=== PATIENT | male | born 1955 | race Caucasian/White ===

== ENCOUNTER 2020-05-19 01:32 | Outpatient (CLI) | payer MEDICARE, SELFPAY ==
[2020-05-19 19:09] LABS: SARS-CoV-2 RNA PCR Negative
== END 2020-05-19 01:33 | disposition home or self-care (01) ==
LOC: ANHCOVIDDT 01:32
PROVIDERS: PCP Internal Medicine; Visit Provider Internal Medicine Gastroenterology
DX: Z01.812 Encounter for preprocedural laboratory examination (principal); Z11.59 Encounter for screening for other viral diseases
CPT/HCPCS: 87635; C9803; U0003

== ENCOUNTER 2020-05-23 00:26 | Day surgery (SDC) | payer MEDICARE, SELFPAY ==
[2020-05-16 14:40] VITALS: BMI 24.8
[2020-05-23 07:57] VITALS: BP 116/73; PULSE 60; RESP 16; TEMP 36.2; O2SAT 97
[2020-05-23] MEDS: LACTATED RINGERS 1,000 ML 150 ML IV CONT (08:02)
--- NOTE | 2020-05-23 08:51 | WPDANESEPPF ---
Anes - Initial Pre Proc Eval Procedure: Operation Date: 05/23/20 09:00 Proposed Procedures p Screening Colonoscopy - Vega Salas MD Date/Time: 05/23/20 08:51 Surgeon: Vega Salas MD Pre Op Diagnosis: neoplasm screening, hx colon polyps Patient Data Age: 65 Gender: M Height: 5 ft 9 in Weight: 76.5 kg Last Vital Signs Temp 36.2 C L 05/23/20 07:57 Pulse 60 05/23/20 07:57 Resp 16 05/23/20 07:57 BP 116/73 05/23/20 07:57 Pulse Ox 97 05/23/20 07:57 Allergies Allergy/AdvReac Type Severity Reaction Status Date / Time No Known Allergies Allergy Verified 05/23/20 07:56 Home Medications Medication Instructions Recorded Confirmed Type aspirin 325 mg PO DAILY 05/16/20 05/16/20 History levothyroxine 50 mcg PO DAILY 05/16/20 05/16/20 History lithium carbonate 300 mg PO BID 05/16/20 05/16/20 History risperidone 0.5 mg PO DAILY 05/16/20 05/16/20 History sertraline 150 mg PO DAILY 05/16/20 05/16/20 History Patient hx anesthesia problems: none Family hx anesthesia problems: none PMFSH Past Medical History Medical History Obesity Schizophrenia Smoker Surgical History Surgical History (Updated 05/23/20 @ 08:54 by Abrahan Quintanilla MD) H/O exploratory laparotomy Social History Social History Smoking packs per day: 0.75 Smoking cigarettes per day: 15.0 Years smoked: 30 Smoking pack-years: 22.50 Smoking status: Current every day smoker Tobacco type: cigarettes Alcohol intake: current Drinks per week: 0 Alcohol use details: 1 OR 2 BEERS A MONTH Substance use: current Substance use type: marijuana Other substance usage details: DAILY Last use: TODAY Living arrangements: with family Spiritual care concerns: No Anes - Eval Final PreProcedure Day of Procedure 05/23/20 08:51 Patient weight: overweight Heart: regular rate and rhythm Airway: Mallampati scale class II and other (upper denture) Neurological: alert and oriented Last oral intake: >/= 8 hours ASA classification: III Emergent: no Anesthetic plan: proceed Anesthesia type and monitoring: general GIVS and standard monitoring Informed Consent: The patient's anesthetic plan and its attendant risks and benefits were discussed with the patient/family/POA. Questions were solicited and answers provided to the satisfaction of the patient/family/POA.
--- NOTE | 2020-05-23 08:58 | P.CONGI_ITS ---
Assessment and Plan Assessment and plan (1) History of colon polyps: Code(s): Z86.010 - Personal history of colonic polyps Status: Acute Assessment and Plan: Patient has a history of colon polyps. Plan is for surveillance colonoscopy now and consider this at 5 year intervals in the future. (2) Schizophrenia: Code(s): F20.9 - Schizophrenia, unspecified Status: Acute GI Consult Note Consult date/time: 05/23/20 08:58 HPI: Thomas Nuñez Jr. is a 65 year old male Seen in evaluation at the request of Dr. Olvin Montgomery. Patient has a history of colon polyps approximately 10 years ago. Patient states his current weight appetite bowel movements are normal. He has had no bleeding. He denies abdominal pain. Family history is noncontributory. [facility] Past Medical History Medical History Obesity Schizophrenia Smoker Surgical History Surgical History (Updated 05/23/20 @ 08:54 by Abrahan Quintanilla MD) H/O exploratory laparotomy Social History Social History Smoking packs per day: 0.75 Smoking cigarettes per day: 15.0 Years smoked: 30 Smoking pack-years: 22.50 Smoking status: Current every day smoker Tobacco type: cigarettes Alcohol intake: current Drinks per week: 0 Alcohol use details: 1 OR 2 BEERS A MONTH Substance use: current Substance use type: marijuana Other substance usage details: DAILY Last use: TODAY Living arrangements: with family Spiritual care concerns: No Meds Home Medications and Allergies Home Medications Medication Instructions Recorded Confirmed Type aspirin 325 mg PO DAILY 05/16/20 05/16/20 History levothyroxine 50 mcg PO DAILY 05/16/20 05/16/20 History lithium carbonate 300 mg PO BID 05/16/20 05/16/20 History risperidone 0.5 mg PO DAILY 05/16/20 05/16/20 History sertraline 150 mg PO DAILY 05/16/20 05/16/20 History Allergies Allergy/AdvReac Type Severity Reaction Status Date / Time No Known Allergies Allergy Verified 05/23/20 07:56 Vital Signs Vital Signs - 24 hr 05/23/20 07:57 Temperature 97.2 F L Pulse Rate 60 Respiratory Rate 16 Blood Pressure 116/73 Pulse Oximetry 97 Exam Narrative: Exam Narrative: Physical exam reveals patient to be alert. Vital signs stable. HEENT exam unremarkable. Patient is anicteric. Lungs are clear to auscultation and percussion. Heart is without murmur or extra sounds. Abdominal exam bowel sounds are present soft nontender with no organomegaly. Digital external rectal exam is normal.
[2020-05-23 09:28] VITALS: BP 80/48; PULSE 56; RESP 30; O2SAT 93
[2020-05-23 09:38] VITALS: BP 86/50; PULSE 50; RESP 17; O2SAT 97
[2020-05-23 09:48] VITALS: BP 107/62; PULSE 54; RESP 21; O2SAT 96
== END 2020-05-23 10:07 | disposition home or self-care (01) ==
PROVIDERS: PCP Internal Medicine; Visit Provider Internal Medicine Gastroenterology
PROC: 0DJD8ZZ Inspection of Lower Intestinal Tract, Via Natural or Artificial Opening Endoscopic (ICD-10-PCS; CPT 45378; principal; 2020-05-23 09:00)
DX: Z12.11 Encounter for screening for malignant neoplasm of colon (principal); K64.8 Other hemorrhoids; Z86.010 Personal history of colon polyps; F20.9 Schizophrenia, unspecified; E66.9 Obesity, unspecified; F17.210 Nicotine dependence, cigarettes, uncomplicated; F12.90 Cannabis use, unspecified, uncomplicated
CPT/HCPCS: G0105; J2704; J7120

== ENCOUNTER 2025-03-05 18:06 | Emergency (ER) | payer MEDICARE, SELFPAY ==
--- OUTSIDE RECORDS SUMMARY | 2024-04-21 10:00 | XMS_ITS ---
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 Name Role Phone Carlton Pereyra Primary Care Provider REASON FOR VISIT 2 Month Psych F/U & Med Refill Social History Sex Assigned At : Social History Observation Description Sex Assigned At Male Encounters Encounter Location Date Provider Diagnosis [address] [address] 04/21/2024 Carlton Pereyra Plan Of Treatment Next Appt Details Provider Name:Carlton Cole , 03/15/2025 02:20:00 PM, [address] [place] [address], [place], [address], Progress Notes * Thomas CONROY JrDOB:[birth year] (70 yo M)Acc No.[id number]:04/21/2024 UNLOCKED PROGRESS NOTE Patient: Kristan MARY Thomas Montoya Provider: Ben Pereyra DNP, PMHNP-BC :1955 A ge:69 Y S ex:Male Date:04/21/2024 Address:[address], [place], [place]-[address] Subjective: * Chief Complaints: * 1 . 2 Month Psych F/U & Med Refill. * Medical History: Objective: * Vitals: Assessment: Plan: * Treatment: * * Electronic signature of Clementina Pereyra APRN, [id number] on 03/05/2025 at 03:57 PM CDT Sign off status: Pending * Provider: Ben Pereyra DNP, PMHNP-BC Date: 1 Generated for Ernesto simms/Jen/Yolanda on: 0 03/05/2025 03:57 PM CDT
--- OUTSIDE RECORDS SUMMARY | 2025-01-04 09:00 | XMS_ITS ---
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 Role Phone Carlton Pereyra Primary Care Provider REASON FOR VISIT last seen 06/30/24 6 month FU Social History Sex Assigned At : Social History Observation Description Sex Assigned At Male Encounters Encounter Location Date Provider Diagnosis [address] [address] 01/04/2025 Carlton Pereyra Plan Of Treatment Next Appt Details Provider Name:Carlton Cole , 03/15/2025 02:20:00 PM, [address] [place] [address], [place], [address], Progress Notes * Thomas CONROY JrDOB:[birth year] (70 yo M)Acc No.[id number]:01/04/2025 UNLOCKED PROGRESS NOTE Patient: Kristan MARY Thomas Montoya Provider: Ben Pereyra DNP, PMHNP-BC :1955 A ge:69 Y S ex:Male Date:01/04/2025 Address:[address], [place], [place] Subjective: * Chief Complaints: * 1 . last seen 06/30/24 6 month FU. * Medical History: Objective: * Vitals: Assessment: Plan: * Treatment: * * Electronic signature of Clementina Pereyra APRN, [id number] on 03/05/2025 at 03:57 PM CDT Sign off status: Pending * Provider: Ben Pereyra DNP, PMHNP- Date: 0 01/04/2025 Generated for Ernesto simms/Jen/Yolanda on: 0 03/05/2025 03:57 PM CDT
--- NOTE | ~2025-03-05 | CT_ITS ---
EXAMINATION: CT abdomen pelvis w con, 03/05/2025 20:30 CDT HISTORY: r/o BOWEL OBSTRUCTION COMPARISON: No comparisons available. TECHNIQUE: CT scan of the abdomen and pelvis was performed with contrast. Isovue 300, 92cc injected IV. One or more of the following dose reduction techniques were used: automated exposure control, adjustment of the mA and/or kV according to patient size, use of iterative reconstruction technique. Unless otherwise stated, incidental findings do not require dedicated follow up imaging FINDINGS: CT abdomen: LUNG BASES: The lung bases are clear. The visualized portions of the heart and pericardium are unremarkable. LIVER: Portal vein patent. No intrahepatic biliary duct dilatation. SPLEEN: Unremarkable, no splenomegaly. KIDNEYS: Right Kidney: Unremarkable. No calculi. No hydronephrosis. Left Kidney: Unremarkable. No calculi. No hydronephrosis ADRENAL GLANDS: Unremarkable. PANCREAS: Unremarkable. GALLBLADDER/BILIARY: Gallbladder contracted. STOMACH AND ESOPHAGUS: Visualized stomach and esophagus within normal limits. BOWEL/MESENTERY: There are inflammatory changes noted in the perianal soft tissues with left-sided catheter noted. Moderate fecal content throughout the large bowel, no colitis or diverticulitis. Appendix normal. Mesentery normal. No dilated small bowel loops. There are some thickened loops of small bowel noted in the right hemiabdomen although there is no significant mucosal hyperemia, there is no gross perforation or abscess. ADENOPATHY/RETROPERITONEUM: No lymphadenopathy. AORTA/VASCULATURE: Normal caliber aorta. FREE FLUID OR FREE AIR: Trace free fluid.. CT pelvis: SOLID ORGANS/REPRODUCTIVE: Unremarkable. BLADDER: The bladder wall is thickened with perivesicular stranding and severe mucosal hyperemia. OSSEOUS STRUCTURES: No acute osseous abnormality.No suspicious lesions. OVERLYING SOFT TISSUES: Postsurgical changes in the abdominal wall with left- sided ostomy. Small bilateral fat-containing inguinal hernia. Grayson catheter in the bladder. IMPRESSION: 1. Severe cystitis. 2. Thickening of the small bowel detailed above which may relate to underlying enteritis. Follow-up is recommended to assess. Reviewed, dictated and finalized at location A.
--- OUTSIDE RECORDS SUMMARY | 2025-03-05 13:00 | XMS_ITS | Encounter Summary ---
Author Organization [facility] Address [address] [facility] [place] [address] Phone Care Team Providers Care Junior Bookkeeper Name Role Phone Olvin Montgomery MD Primary Care Provider [phone] Reason for Visit * Auth/Cert (Routine) Specialty Diagnoses / Procedures Referred By Contnicholas t Referred To Contact Referral ID Status Reason Start Date Expiration Date Visits Re quested Visits Authorized [id number] 1 1 Encounter Details Date Type Department Care Team (Late Contact Info) Description 03/05/2025 1:00 PM CDT Home Care Visit [facility] [address] [place] [address] Daphne Ken RN [place] - PRN VISIT Social History Tobacco Use Types Packs/Day Years Used Date Smoking Tobacco: Never Assessed Sex and Gender Information Value Date Recorded Sex Assigned at Not on file Legal Sex Male 3:29 PM CDT Gender Identity Not on file Sexual Orientation Not on file documented as of this encounter Last Filed Vital Signs Vital Sign Reading Time Taken Comments Blood Pressure 110/62 03/05/2025 12:30 PM CDT Pulse 81 03/05/2025 12:30 PM CDT Temperature 36.3 C (97.3 F) 03/05/2025 12:30 PM CDT Respiratory Rate - - Oxygen Saturation 100% 03/05/2025 12:30 PM CDT Inhaled Oxygen Concentration - - Weight - - Height - - Body Mass Index - - documented in this encounter Plan of Treatment Upcoming Encounters Date Type Department Care Team (Late Contact Info) Description 03/06/2025 12:00 PM CDT Home Care Visit [facility] [address] [place] [address] Ana Chaudhary PTA [place] 03/07/2025 11:00 AM CDT Home Care Visit [facility] [address] Joselin Duong PT [place] 03/08/2025 2:00 AM CDT Home Care Visit [facility] [address] Ellie Mayer RN [place] 03/15/2025 1:00 AM CDT Home Care Visit [facility] [address] Ellie Mayer RN [place] 03/22/2025 1:00 AM CDT Home Care Visit [facility] [address] Ellie Mayer RN [place] 03/29/2025 1:00 AM CDT Home Care Visit [facility] [address] Ellie Mayer RN [place] 04/05/2025 1:00 AM CDT Home Care Visit [facility] [address] Ellie Mayer RN [place] 04/12/2025 1:00 AM CDT Appointment [address] [address] Ellie Mayer RN [place] documented as of this encounter Visit Diagnoses Not on filedocumented in this encounter Home Health Visit - Care Plan Visit Details Visit Type -SN - PRN Visit Discipline -Snf Problems Problem Description Start Date Status Goals Interve ntions CANCER Disciplines: Snf Cancer 02/16/2025 Active 1 goal linked to scheduled/documente d intervention 1 goal intervention scheduled/documente d in this visit UTI PREVENTION Disciplines: Snf 02/16/2025 Active 1 goal linked to scheduled/documente d intervention 1 goal intervention scheduled/documente d in this visit Goals Goal Associated Problem Outcome Goal Met? Visit Notes Cancer Description: Patient will demonstrate effective level cancer related symptom and pain control. Target date: within 4 weeks CANCER No UTI Prevention Description: Patient will verbalize understanding of signs and symptoms to report and methods to prevent urinary tract infection. UTI PREVENTION No Interventions Intervention Associated Problem/Goal Status Variance Visit Notes Cancer (O) Description: Assess for cancer related symptoms and pain. Provide education on techniques to mitigate/control cancer symptoms. Problem:CANCER Goal:Cancer Scheduled UTI Symptoms Non-Catheter (O) Description: Evaluate for signs and symptoms of Urinary tract infection. Provide education regarding UTI prevention and signs and symptoms to report. Problem:UTI PREVENTION Goal:UTI Prevention Scheduled documented in this encounter Care Teams Junior Bookkeeper Relationship Specialty Start Date End Date Olvin Montgomery MD [address] [place] [address] PCP - General Internal Medicine 02/08/25 documented as of this encounter
[2025-03-05 18:09] VITALS: BP 119/64; PULSE 79; RESP 19; TEMP 36.4; O2SAT 100
[2025-03-05 20:07] LABS: Hematocrit 34.1 % (42.0-52.0); Hemoglobin 10.1 g/dL (14.0-18.0); Immature Granulocyte Percent A 2.2 % (0-0.5); Lymphocytes Absolute Auto 0.50 K/mm3 (0.9-3.2); Mean Corpuscular HGB Conc 29.6 g/dl (32-36); Mean Corpuscular Hemoglobin 30.1 pg (26-34); Mean Corpuscular Volume 101.5 fl (80-100); Nucleated Red Blood Cells Absolute Auto 0.000 K/mm3 (0.0-0.012); Nucleated Red Blood Cells Perc 0.0 % (0.0-0.2); Platelet Count Result 282 k/mm3 (150-375); Red Blood Count 3.36 M/mm3 (4.6-6.20); White Blood Count 6.0 K/mm3 (4.5-10.0)
[2025-03-05 20:12] LABS: Alanine Aminotransferase 11 U/L (6-50); Albumin Level 3.9 g/dL (3.5-5.1); Alkaline Phosphatase 67 U/L (38-126); Anion Gap 6 mmol/L (4-12); Aspartate Amino Transferase 26 U/L (17-59); Bilirubin,Total 0.4 mg/dL (0.2-1.3); Blood Urea Nitrogen 27 mg/dL (9-20); Calcium 9.0 mg/dL (8.4-10.2); Carbon Dioxide 25 mmol/L (22-30); Chloride 108 mmol/L (98-107); Estimated CRCL calculation 34 ml/min; Estimated Glomerular Filt Rate 38; Glucose 87 mg/dL (65-110); Lipase 181 U/L (23-300); Magnesium 2.1 mg/dL (1.6-2.3); Potassium 4.2 mmol/L (3.4-5.0); Sodium 139 mmol/L (137-145); Total Protein 7.7 g/dL (6.3-8.2)
[2025-03-05 20:16] VITALS: BP 124/82; PULSE 67; RESP 18; O2SAT 100
[2025-03-05 20:16] LABS: Hypochromasia 1+
[2025-03-05 20:17] LABS: Schistocytes None Seen
[2025-03-05 20:18] LABS: Add Urine Microscopic? YES; Appearance Urine Cloudy (Clear); Glucose Urine UA Negative (Negative); Leukocyte Esterase Ur 2+ LEU/UL (Negative); Nitrate Urine Positive (Negative); Non Pathogenic Casts 0-2; Specific Grav Ur 1.005 (1.001-1.035)
--- OUTSIDE RECORDS SUMMARY | 2025-03-05 20:22 | XMS_ITS | Clinical Summary ---
Author Organization [address] Address [address] [place] [phone] Care Team Providers Care Whale Trainer Name Role Phone Olvin Montgomery MD Primary Care Provider + [phone] Ten Canales MD Unavailable [phone] Hubert Robledo MD PhD Unavailable + [phone] Bin Ryder MD Unavailable [phone] Allergies Active Allergy Reactions Criticality Noted Date Comments Dye Blisters High 09/22/2024 HAIR DYE Paroxetine Other (See comments) Low 08/11/2024 Paxil - don't remember reaction Medications sertraline (ZOLOFT) 100 mg tabletIndications: Generalized Anxiety Disorder,depressio n Take 2 tablets (200 mg total) by mouth daily Active levothyroxine (SYNTHROID) 50 mcg tabletIndications: hypothyroidism Take 1 tablet (50 mcg total) by mouth nurse case manager before breakfast Active acetaminophen 500 mg capsuleIndications :Pain Take 2 capsules (1,000 mg total) by mouth every 6 (six) hours 30 tablet 07/28/19 25 Active Additional Information Patient taking differently:1,000 mg oralAs needed, Indications: Pain, Informant: Family Member, Reported on 03/01/2025 Ensure Plus High Protein 0.08 gram-1.5 kcal/mL liquidIndications: supplement Take by mouth daily 10/14/19 25 Active folic acid (FOLVITE) 1 mg tablet Take 1 tablet (1 mg total) by mouth daily Active gabapentin (NEURONTIN) 300 mg capsuleIndications :Neuropathic Pain Take 1 capsule (300 mg total) by mouth 3 (three) times a day Active mirtazapine (REMERON) 15 mg tablet Take 1 tablet (15 mg total) by mouth nightly 30 tablet 01/05/20 25 Active methocarbamoL (ROBAXIN) 750 mg tablet Take 2 tablets (1,500 mg total) by mouth 3 (three) times a day as needed for muscle spasms 15 tablet 01/05/20 25 Active tamsulosin (FLOMAX) 0.4 mg extended release capsule Take 1 capsule (0.4 mg total) by mouth daily with dinner 30 capsule 01/05/20 25 Active Additional Information Patient taking differently:0.4 mg oral Daily with dinner,Indications: benign prostatic hyperplasia with lower urinary tract sx, Informant: Family Member, Reported on 02/16/2025 traZODone (DESYREL) 50 mg tablet Take 1 tablet (50 mg total) by mouth nightly 30 tablet 01/05/20 25 Active Additional Information Patient taking differently:50 mg oral Nightly,Indications: sleep, Informant: Family Member, Reported on 02/16/[address] (PROTONIX) 40 mg EC tabletIndications: GI Bleed Take 1 tablet (40 mg total) by mouth 2 (two) times a day 60 tablet 2 01/05/20 25 025 Active ondansetron ODT (ZOFRAN-ODT) 4 mg disintegrating tablet Take 1 tablet (4 mg total) by mouth as needed for nausea 01/05/20 25 Active finasteride (PROSCAR) 5 mg tabletIndications: benign prostatic hyperplasia with lower urinary tract sx Take 1 tablet (5 mg total) by mouth nightly 01/08/20 25 Active megestroL 40 mg/mL suspension Not currently taking 01/08/20 25 Active sodium, potassium & mag sulfates (Suprep Bowel Prep Kit) 17.5-3.13-1.6 gram recon solnIndications:Maykel wel Evacuation Drink first half of prep at 6:00 pm the night before procedure. Drink second half of prep 4 hours prior to leaving home for procedure. 354 mL 02/15/20 25 Active Additional Information Patient taking differently: Drink first half of prep at 6:00 pm the night before procedure. Drink second half of prep 4 hours prior to leaving home for procedure. Future med, Indications: Bowel Evacuation, Informant: Family Member, Reported on 02/16/2025 oxyCODONE (OXY-IR) 5 mg capsuleIndications :Pain Take 1 capsule (5 mg total) by mouth every 4 (four) hours as needed for moderate pain (pain scale 5-7) Active zinc sulfate (ZINCATE) 50 mg zinc (220 mg) capsule Take 1 capsule (220 mg total) by mouth daily 30 capsule 11 08/18/19 25 025 Discontin ued(Thera py completed ) multivitamin with minerals tablet Take 1 tablet by mouth daily 025 Discontin ued(Thera py completed ) polyethylene glycol (MIRALAX) 17 gram packetIndications: constipation Take 1 packet (17 g total) by mouth daily 025 Discontin ued(Thera py completed ) prochlorperazine (COMPAZINE) 10 mg tablet Take 1 tablet (10 mg total) by mouth every 6 (six) hours as needed for nausea or vomiting Discontin ued(Thera py completed ) ascorbic acid (VITAMIN C) 1,000 mg tablet Take 1 tablet (1,000 mg total) by mouth daily 30 tablet 01/05/20 25 025 Discontin ued(Thera py completed ) droNABinol (MARINOL) 2.5 mg capsule Take 1 capsule (2.5 mg total) by mouth 2 (two) times a day before breakfast and lunch for 7 days 14 capsule 01/05/20 25 025 Discontin ued(Thera py completed ) lidocaine (LIDODERM) 5 % Place 2 patches on the skin daily for 12 hours Remove & discard patch within 12 hours or as directed by . 10 patch 01/05/20 25 025 Discontin ued(Thera py completed ) senna-docusate (PERICOLACE) 8.6-50 mg Take 1 tablet by mouth 2 (two) times a day as needed for constipation 30 tablet 01/05/20 25 025 Discontin ued(Thera py completed ) omeprazole (PriLOSEC) 40 mg capsule 01/05/20 25 025 Discontin ued(Alter carlos therapy) Active Problems Problem Noted Date Diagnosed Date Esophagitis 12/29/2024 Duodenal erosion 12/29/2024 Coffee ground emesis 12/28/2024 JAIR (acute kidney injury) 12/27/2024 Anal carcinoma 10/03/2024 Pain 08/29/2024 Delirium 08/16/2024 Assessment & Plan (08/17/2024 9:21 AM GUEST SERVICES DIRECTOR): 08/16 expressed having audible and visual hallucination, thought people were talking about killing animals in his room, a head CT was performed which showed no intra cranial process- ordered Trazodone for tonight 08/17 mental status improved Discharge planning issues 08/15/2024 Assessment & Plan (08/18/2024 9:47 AM GUEST SERVICES DIRECTOR): 08/15 CRS to see patient 08/16 Urology consulted for urinary retention 08/17 Patient is medically stable for discharge, SW/CM updated. Discharge pending facility acceptance 08/18: Discharged [x] Treatment Plan note completed UTI (urinary tract infection) 08/15/2024 Assessment & Plan (08/15/2024 1:21 PM GUEST SERVICES DIRECTOR): Ceftriaxone 08/13-08/15, did not reflux to culture Colostomy present on admission 08/15/2024 Assessment & Plan (08/17/2024 12:57 PM GUEST SERVICES DIRECTOR): OR 07/25 CRS ([place]) I and D bilateral perirectal abscesses & Laparoscopic assisted colostomy. 08/15 + gas in bag 08/16 + ostomy output Urinary incontinence 08/15/2024 Assessment & Plan (08/17/2024 9:10 AM GUEST SERVICES DIRECTOR): 08/15 patient states this has had this since April 2024, will obtain PVR bladder scans for 24hrs, if > [address] Greco, 350 mL reported, Greco placed 08/[address] findings concerning for invasion of the anal mass into the Prostate consulted Urology in the setting of UOP 5L/24h,Greco remains in place 08/[address], will discharge with Greco and follow up with Urology outpatient Fall, initial encounter 08/13/2024 Multiple Left sided rib fractures, 8th-12th 07/30 Assessment & Plan (08/18/2024 9:47 AM GUEST SERVICES DIRECTOR): # Left rib fx 8-12 CXR, Chest CT demonstrate acute fractures of ribs 8th-12th on the Left side. Patient's is pulling 2L on IS. - Admit to Floor based on [facility] Rib score - Aggressive pulmonary hygiene: elevate HOB, ISx10/hr while awake, duonebs, OOB as able - O2 therapy for goal O2 saturations > 90-94%. - Daily CXR - MMPR: APAP, gabapentin, anti-spasmodic, lidocaine patches to most painful area - Pain consult placed on floor, 08/13 - PT consultation - 08/14: Pain well controlled, pulling in <500 ml volume in IS - 08/15: Increased Methocarbamol from 1000 mg TID to 1500 mg TID, now IS 1L -08/17 Pain remains well controlled, changed Oxycodone frequency to QID PRN - F/U with ACCS with repeat CXR Moderate protein-calorie malnutrition 07/27/2024 Assessment & Plan (08/17/2024 12:54 PM GUEST SERVICES DIRECTOR): Body mass index is 20.04 kg/m . 08/15 Nutrition consult, Albumin 2.9 08/16 nutritional supplements ordered 08/17 started Marinol to improve appetite Anal squamous cell carcinoma 07/25/2024 Cancer Staging:Clinical stage from 08/15/2024:Stage IIIC(cT4, cN1a, cM0) - Signed by Bin Ryder MD on 08/15/2024 Assessment & Plan (08/17/2024 12:56 PM GUEST SERVICES DIRECTOR): S/P I&D / CRS Dr. Canales ---Perianal wound care: Cleanse perineum with wound cleanser, pat dry. Apply triple paste cream to perineum, around the mushroom catheters. Cover with dry gauze and ABD pad, use mesh panties to hold dressings in place (rather than tape). Perform dressing changed TID and PRN saturation. Patient has follow up appointments scheduled with Oncology to start Chemotherapy 08/29, Radiation therapy TBD. The patient's Brother in law is willing to take the patient to his treatments from the facility. Rectal abscess 07/21/2024 Assessment & Plan (08/18/2024 9:46 AM GUEST SERVICES DIRECTOR): #Anal SCC with perirectal abscesses s/p recent I&Ds (CRS, Ally) and diverting colostomy. - Patient with mild oozing 08/14 - No pain no signs of infection - Perianal wound care: Cleanse perineum with wound cleanser, pat dry. Apply triple paste cream to perineum, around the mushroom catheters. Cover with dry gauze and ABD pad, use mesh panties to hold dressings in place (rather than tape). Perform dressing changed TID and PRN saturation. - 08/15: CRS consulted Follow up with Dr. Argueta outpatient for drain removal Anal cancer 07/19/2024 [id number] 07/19/2024 Bipolar 1 disorder 04/12/2024 Essential (primary) hypertension 04/12/2024 Open wound of left buttock 04/12/2024 Syncope 04/12/2024 Tobacco dependence syndrome 04/12/2024 Hyperlipidemia 03/25/2024 Umbilical hernia 02/20/2024 Overactive bladder 02/15/2024 Hypothyroidism 01/18/2024 Chlamydial infection 01/30/2023 Lower urinary tract symptoms 01/30/2023 Sexually transmitted infection 01/30/2023 Benign prostatic hyperplasia with urinary obstru ction 12/11/2021 Encounters Date Type Department Care Team Description 03/01/20 12:50 PM CDT - 03/01/20 25 1:45 PM CDT Surgery [facility] Operating Room [address] [place] [phone] Ten Canales MD EXAM UNDER ANESTHESIA - RECTUM 03/01/20 12:49 PM CDT Anesthesia Event [facility] Operating Room [address] [place] [address] Rohan Oliveira MD Heuvelman, Katherine Marie, NP 03/01/20 25 10:30 AM CDT - 03/01/20 25 3:32 PM CDT Hospital Encounter [facility] Operating Room [address] [place] [address] Ten Canales MD Anal cancer (HCC) (Primary Dx); [id number] Discharge Disposition: Discharge to home or self care 02/29/[address] [facility] Surgery [address] [place] [address] Medical Office Building [address] [place] [phone] Mode Lucita, [facility] Surgery Confirmation 02/24/[address] [facility] Surgery [address] [place] [address] Lizzette Ibrahim, [facility] 02/15/20 1:00 PM CDT Office Visit [facility] Surgery [address] [place] [address] Office [facility] [address] [place] [phone] Ten Canales MD Colostomy present on admission (HCC) (Primary Dx); Anal cancer (HCC) 01/27/20 1:30 PM CDT Office Visit [facility] Radiation Oncology [address] [place] [id number] Hubert Robledo MD PhD Anal squamous cell carcinoma (HCC) [C21.0] 01/25/20 25 2:30 PM CDT Office Visit [facility] Oncology [address] [place] [address] [address] [place] [address] Bin Ryder MD Anal squamous cell carcinoma (HCC) (Primary Dx); Anal cancer (HCC) 01/25/20 25 2:00 PM CDT Lab [facility] Cancer [facility] Center [address] [place] [address] [address] [place] [address] Anal squamous cell carcinoma (HCC) 01/11/20 25 11:00 AM CDT Office Visit [facility] Surgery [address] [place] [phone] Ten Canales MD [id number] (Primary Dx); Colostomy present on admission (HCC); Anal cancer (HCC) 01/10/20 25 Telephone [facility] Gastroenterology at [address] [place] [address] Ellie Perez [place] 01/07/20 Results Follow-Up [facility] Gastroenterology at [address] [place] [address] Donna Kong MD Surgical pathology 01/06/20 2:04 PM CDT - 01/06/20 11:59 PM CDT Hospital Encounter [facility] Center [address] [place] [address] Anal squamous cell carcinoma (HCC) Discharge Disposition: Discharge to home or self care 12/29/19 12:00 PM CDT - 12/29/19 12:40 PM CDT Surgery [address] [address] Donna Kong MD ESOPHAGOGASTRODUODENOSCOPY BIOPSY 12/29/19 11:09 AM CDT Anesthesia Event [address] [address] Moiz Barker MD 12/28/19 10:17 AM CDT - 01/05/20 4:23 PM CDT Hospital Encounter [facility] IMU [address] [place] [address] Maikol Vasquez MD Burnside, MD Zahraa Tobar, MD Sidney Ward Shazia, MD Sargsyan, Narine, MD Nations, Ten Corey, JAIR (acute kidney injury) (Primary Dx); Gastrointestinal hemorrhage, unspecified gastrointestinal hemorrhage type; UTI (urinary tract infection) with pyuria; Greco catheter problem, initial encounter; Coffee ground emesis; Esophagitis; Duodenal erosion Discharge Disposition: Discharge to usp facility 12/28/19 10:11 AM CDT - 12/28/19 11:59 PM CDT Hospital Encounter [facility] Emergency, Room R Discharge Disposition: Discharge to home or self care 12/07/19 11:00 AM CDT Clinical Support [facility] Cancer [address] [place] [address] Anal squamous cell carcinoma (HCC) (Primary Dx) 12/07/19 10:30 AM CDT Office Visit [facility]cology [address] [place] [address] Medical Office [address] [place] [address] Bin Ryder MD Anal squamous cell carcinoma (HCC) (Primary Dx); Anal cancer (HCC); Iron deficiency anemia, unspecified iron deficiency anemia type 12/07/19 10:00 AM CDT Lab [facility] at [facility] [address] [facility] [address] [place] [address] Anal squamous cell carcinoma (HCC); Anal cancer (HCC); Iron deficiency anemia, unspecified iron deficiency anemia type 12/07/19 Telephone [facility] Medicine Surgery [address] [place] [address] Medical Office Building [address] [place] [address] Jyothi Burnett RN 12/06/[address] [facility] [address] [place] [address] Medical Office [address] [place] [address] Soheila Arzola, CLT from Last 3 Months Immunizations Immunization Administration Dates Next Due Influenza, Quad, Adjuvantate d, Intramuscular 04/22/2023 Influenza, Quadrivalent, Hig h Dose, Preservative Free, Intrr 03/28/2021 Influenza, Quadrivalent, Spl it, Intramuscular 04/14/2017,04/13/2016 Influenza, Quadrivalent, Spl it, Preservative Free, Intramuscular 04/11/2022 Influenza, Trivalent, Adjuva nted, Intramuscular 06/07/2019 Influenza, Trivalent, High D ose, Split, Preservative Free, Intramuscular 06/20/2024 Influenza, Trivalent, IM (MDV) ,04/22/2017,04/17/2015,04/10,05/02/2013 Influenza, Trivalent, Preser vative Free, Intramuscular 03/11/2020,04/23/2016,04/16/2015 PPD TEST 09/29/2024,08/20/2024 BinWise SARS-CoV-2 Monovalent Vaccination (12+ Yrs) PURPLE 04/22/2023 Pneumococcal Conjugate Pcv20 02/05/2023,05/12/20 ZOSTER Recombinant 08/05/2022,04/11/2022 Zoster, unspecified 03/31/2022 Surgical History Surgery Date Site/Laterality Comments INCISION AND DRAINAGE 07/25/2024 I and D bilateral perirectal abscesses LAPAROSCOPIC COLOSTOMY 07/25/2024 OTHER SURGICAL HISTORY 08/01/2024 EXAM UNDER ANESTHESIA N/A Monitor Anesthesia Care with possible mushroom catheter placement INCISION AND DRAINAGE ABSCESS - SAMANTHA-RECTAL PORTACATH PLACEMENT 08/29/2024 COLONOSCOPY Medical History Medical History Date Comments Anal canal prolapse Cancer (HCC) Anal Cancer Hypertension HLD (hyperlipidemia) Hypothyroidism Bipolar disorder Family History Medical History Relation Name Comments Anesthesia problems Neg Hx Relation Name Status Comments Father Alive Mother Social History Tobacco Use Types Packs/Day Years Used Date Smoking Tobacco: Former Cigarettes Smokeless Tobacco: Never Tobacco Cessation:Counseling Given: Not Answered Alcohol Use Standard Drinks/Week Comments Yes 0 (1 standard drink = 0.6 oz pur e alcohol) [facility] FIGMDities Answer Date Recorded In the past 12 months has e [employer], gas, oil, or water [employer] threatened to shut off services in your home? No 12/28/2024 Humiliation, Afraid, Rape, and Kick questionnair e Answer Date Recorded Within the last year, have y ou been afraid of your partner or ex-partner? No 08/13/2024 Within the last year, have y ou been humiliated or emotionally abused in other ways by your partner or ex-partner? No Within the last year, have y ou been kicked, hit, slapped, or otherwise physically hurt by your partner or ex-partner? No 08/13/2024 Within the last year, have y ou been raped or forced to have any kind of sexual activity by your partner or ex-partner? No 08/13/2024 Social Connection and Isolation Panel Answer Date Recorded In a typical week, how many times do you talk on the phone with family, friends, or neighbors? More than three times a week 12/28/2024 How often do you get togethe r with friends or relatives? More than three times a week 12/28/2024 How often do you attend chur ch or methodist services? Never 12/28/2024 Do you belong to any clubs o r organizations such as worship groups, unions, fraternal or athletic groups, or school groups? No 12/28/2024 How often do you attend meet ings of the clubs or organizations you belong to? Never 12/28/2024 Are you , , di vorced, , never , or living with a partner? 12/28/2024 Overall Financial Resource Strain (CARDIA) Answe r Date Recorded How hard is it for you to pa y for the very basics like food, housing, medical care, and heating? Not very hard 12/28/2024 PHQ-2 Answer Date Recorded PHQ-2 Total Score 13 08/13/2024 [facility] of Occupat ional [facility] - Occupational Stress Questionnaire Answer Date Recorded Do you feel stress - tense, restless, nervous, or anxious, or unable to sleep at night because your mind is troubled all the time - these days? Only a little 08/13/2024 Exercise Vital Sign Answer Date Recorde d On average, how many days pe r week do you engage in moderate to strenuous exercise (like a brisk walk)? 2 days 08/13/2024 On average, how many minutes do you engage in exercise at this level? 30 min 08/13/2024 Hunger Vital Sign Answer Date Recorded Within the past 12 months, y ou worried that your food would run out before you got the money to buy more. Never true 12/29/19 25 Within the past 12 months, t he food you bought just didn't last and you didn't have money to get more. Never true 12/28/2024 PRAPARE - Transportation Answer Date Re corded In the past 12 months, has l ack of transportation kept you from medical appointments or from getting medications? No 07/2024 In the past 12 months, has l ack of transportation kept you from meetings, work, or from getting things needed for daily living? No 12/28/2024 PHQ-9 Answer Date Recorded PHQ-9 Total Score 13 08/13/2024 Housing Stability Vital Sign Answer Don e Recorded In the last 12 months, was t here a time when you were not able to pay the mortgage or rent on time? No 12/28/2024 In the past 12 months, how m any times have you moved where you were living? 1 12/28/2024 At any time in the past 12 m [facility], were you homeless or living in a [facility] (including now)? No 12/28/2024 AUDIT-C Answer Date Recorded Q1: How often do you have a drink containing alc ohol? Monthly or less 03/01/2025 Q2: How many drinks containi ng alcohol do you have on a typical day when you are drinking? 1 or 2 03/01/2025 Q3: How often do you have si x or more drinks on one occasion? Never 03/01/2025 Personal Safety Answer Date Recorded Have you ever been in or are you currently in a harmful physical or emotional relationship or is someone making you feel afraid or unsafe? Denies 03/01/2025 Education Answer Date Recorded What is the highest level of school you have completed or the highest degree you have received? Associate degree: occupational, technical, or vocational program 12/28/2024 Sex and Gender Information Value Date Recorded Sex Assigned at Not on file Legal Sex Male 11:15 AM GUEST SERVICES DIRECTOR Gender Identity Not on file Sexual Orientation Not on file Obstetrics History Last Filed Vital Signs Vital Sign Reading Time Taken Comments Blood Pressure 105/69 03/01/2025 1:50 PM CDT Pulse 65 03/01/2025 1:53 PM CDT Temperature 36.4 C (97.5 F) 03/01/2025 1:53 PM CDT Respiratory Rate 15 03/01/2025 1:53 PM CDT Oxygen Saturation 100% 03/01/2025 1:53 PM CDT Inhaled Oxygen Concentration - - Weight 68 kg (150 lb) 03/01/2025 11:19 AM CDT Height 175.3 cm (5' 9) 02/16/2025 10:30 AM CDT Body Mass Index 22.15 02/16/2025 10:30 AM CDT Plan of Treatment Upcoming Encounters Date Type Department Care Team (Latest Contact Info) Description 04/14/2025 1:00 PM CDT Hospital Encounter [facility] [address] [place] [address] Donna Kong MD [address] [address] 04/14/2025 1:00 PM CDT - 04/14/2025 1:30 PM CDT Surgery [facility] [address] [place] [address] Donna Kong MD [address] [place] [address] ESOPHAGOGASTRODUODENOSCOPY Scheduled Procedures Name Priority Associated Diagnoses Date/Ti me ESOPHAGOGASTRODUODENOSCOPY Esophagitis 04/14/2025 1:00 PM CDT Health Maintenance Due Date Last Done Comments Colon Cancer Screening-Colonoscopy 1955 Hepatitis C Screening 1955 DTaP/Tdap/Td Vaccine (1 - Tdap) 1965 Hepatitis B Screening 02/05/1972 Well Visit 65+ 2019 Covid-19 Vaccine (5 2024-2 6 season) 2025 04/22/2023, 04/22/2023, 08/21/2022, Additional history exists Influenza Vaccine (#1) 2025 , 04/22/2023, 04/11/2022, Additional history exists Depression Screening 08/12/2025 08/12/2024, 08/12/19 Fall Risk Assessment 03/01/2026 03/01/2025 Zoster Vaccine Completed 08/05/2022, 03/29, 03/31/2022 Pneumococcal vaccine 65+ Completed 02/05/2023, 04/29 Abdominal Aortic Aneurysm (A AA) Screen Completed 01/05/2025, 12/27/2024, 08/14/2024, Additional history exists Goals Goal Patient Goal Type Associated Problems Recent Progress Patient-Stated? Author Autogenerat ed Goal Care Plan Autogenerated Problem Stephanie Olson Medical Devices Implanted Type Area Nuclear Medicine Tech Device Identifier Shelf Expiration Date Model / Serial / Lot Nayeli Morovis Powerport Mri Airguard 8fr 1 Lumen Attachable Catheter Latex Free [id number] - [id number] Implanted:Qty: 1 on 08/29/2024 by Ten Escobedo MD at [facility] Left: Chest Nayeli Morovis 09/26/2025 [id number] / / [id number] Procedures Procedure Name Priority Date/Time Associated Diagnosis Comments EXAM UNDER ANESTHESIA - RECTUM 0 03/01/2025 12:49 PM CDT Anal cancer (HCC) Case Notes 02/15@0718- Waiting on a room to release (EF) EGFR Routine 01/24/2025 2:10 PM CDT Anal squamous cell carcinoma (HCC) DIFFERENTIAL AUTO Routine 01/24/2025 2:10 PM CDT Anal squamous cell carcinoma (HCC) CBC WITH AUTO DIFFERENTIAL Routine 01/24 2:10 PM CDT Anal squamous cell carcinoma (HCC) COMPREHENSIVE METABOLIC PANEL Routine 2:10 PM CDT Anal squamous cell carcinoma (HCC) CT CHEST ABDOMEN PELVIS W CONTRAST Schedule Routine, Read Routine (OP Routine) 01/05/2025 3:52 PM CDT Anal squamous cell carcinoma (HCC) CREATININE, WHOLE BLOOD Routine 01/06/20 2:40 PM CDT MANUAL DIFFERENTIAL Routine 01/04/2025 5:59 AM CDT CBC WITH AUTO DIFFERENTIAL Routine 01/04 5:59 AM CDT MANUAL DIFFERENTIAL Routine 01/03/2025 6:28 AM CDT CBC WITH AUTO DIFFERENTIAL Routine 01/03 6:28 AM CDT MANUAL DIFFERENTIAL Routine 01/02/2025 5:37 AM CDT EGFR Routine 01/02/2025 5:37 AM CDT RENAL FUNCTION PANEL Routine 01/02/2025 5:37 AM CDT CBC WITH AUTO DIFFERENTIAL Routine 01/02 5:37 AM CDT MANUAL DIFFERENTIAL Routine 01/01/2025 5:59 AM CDT EGFR Routine 01/01/2025 5:59 AM CDT RENAL FUNCTION PANEL Routine 01/01/2025 5:59 AM CDT CBC WITH AUTO DIFFERENTIAL Routine 01/01 5:59 AM CDT EGFR Routine 12/31/2024 6:27 AM CDT DIFFERENTIAL AUTO Routine 12/31/2024 6:27 AM CDT RENAL FUNCTION PANEL Routine 12/31/2024 6:27 AM CDT CBC WITH AUTO DIFFERENTIAL Routine 12/31 6:27 AM CDT EGFR Routine 12/30/2024 11:03 AM CDT RENAL FUNCTION PANEL Routine 12/30/2024 11:03 AM CDT TISSUE TRANSGLUTAMINASE, IGA Routine 09/2024 5:38 AM CDT EGFR Routine 12/30/2024 5:38 AM CDT RENAL FUNCTION PANEL Routine 12/30/2024 5:38 AM CDT DIFFERENTIAL AUTO Routine 12/30/2024 5:38 AM CDT THYROID FUNCTION CASCADE Routine 025 5:38 AM CDT CELIAC REFLEX PANEL Routine 12/30/2024 5:38 AM CDT FOLATE Routine 12/30/2024 5:38 AM CDT VITAMIN B12 Routine 12/30/2024 5:38 AM CDT CBC WITH AUTO DIFFERENTIAL Routine 12/30 5:38 AM CDT EGFR Timed 12/29/2024 8:52 PM CDT RENAL FUNCTION PANEL Timed 12/29/2024 8:52 PM CDT EGFR Timed 12/29/2024 4:29 PM CDT MAGNESIUM Routine 12/29/2024 4:29 PM CDT RENAL FUNCTION PANEL Timed 12/29/2024 4:[address] KUB STONE WO CONTRAST Critical/Lif e-Threatenin g 12/29/2024 9:28 AM CDT EGFR Routine 12/29/2024 6:32 AM CDT DIFFERENTIAL AUTO Routine 12/29/2024 6:32 AM CDT COMPREHENSIVE METABOLIC PANEL Routine 6:32 AM CDT CBC WITH AUTO DIFFERENTIAL Routine 12/29 6:32 AM CDT SURGICAL PATHOLOGY STAT 12/28/2024 2:03 PM CDT Coffee ground emesis EGD 12/28/2024 10:49 AM CDT ESOPHAGOGASTRODUODENOSCOPY BIOPSY 12/28/2024 10:47 AM CDT Coffee ground emesis US KIDNEY COMPLETE IP Routine 12/28/2024 8:33 AM CDT EGFR Routine 12/28/2024 5:58 AM CDT DIFFERENTIAL AUTO Routine 12/28/2024 5:58 AM CDT COMPREHENSIVE METABOLIC PANEL Routine 5:58 AM CDT CBC WITH AUTO DIFFERENTIAL Routine 12/28 5:58 AM CDT BLOOD CULTURE Routine 12/28/2024 5:58 AM CDT BLOOD CULTURE Routine 12/28/2024 5:57 AM CDT HEMOGLOBIN AND HEMATOCRIT Timed 2024 1:19 AM CDT TRANSFUSE RED BLOOD CELLS Timed 2024 9:41 PM CDT PREPARE RBC STAT 12/27/2024 7:[address] CHEST WO CONTRAST ED 12/27/2024 6:13 PM CDT CROSSMATCH STAT 12/27/2024 5:03 PM CDT EGFR STAT 12/27/2024 5:03 PM CDT DIFFERENTIAL AUTO STAT 12/27/2024 5:03 PM CDT ANTIBODY SCREEN STAT 12/27/2024 5:03 PM CDT ABO/RH STAT 12/27/2024 5:03 PM CDT BASIC METABOLIC PANEL STAT 12/27/2024 5:03 PM CDT CBC WITH AUTO DIFFERENTIAL STAT 12/27 5:03 PM CDT TYPE AND SCREEN STAT 12/27/2024 5:03 PM CDT UREA NITROGEN, URINE, RANDOM Routine 06/2024 1:16 PM CDT CREATININE, URINE, RANDOM Routine 2024 1:16 PM CDT SODIUM, URINE, RANDOM Routine 12/27/2024 1:16 PM CDT URINALYSIS, MICROSCOPIC ONLY STAT 06/2024 1:16 PM CDT URINE CULTURE STAT 12/27/2024 1:16 PM CDT BLOOD CULTURE STAT 12/27/2024 1:16 PM CDT BLOOD CULTURE STAT 12/27/2024 1:16 PM CDT URINALYSIS AND REFLEX TO MICROSCOPIC AND CULTURE STAT 12/27/2024 1:[address] ABDOMEN PELVIS WO CONTRAST ED 12:01 PM CDT MANUAL DIFFERENTIAL STAT 12/27/2024 10:28 AM CDT EGFR STAT 12/27/2024 10:28 AM CDT SEPSIS LACTATE WITH REFLEX STAT 12/27 10:28 AM CDT COMPREHENSIVE METABOLIC PANEL STAT 10:28 AM CDT CBC WITH AUTO DIFFERENTIAL STAT 12/27 10:28 AM CDT FERRITIN Routine 12/06/2024 9:55 AM CDT Iron deficiency anemia, unspecified iron deficiency anemia type IRON PROFILE W/ IBC Routine 12/06/2024 9:55 AM CDT Iron deficiency anemia, unspecified iron deficiency anemia type EGFR Routine 12/06/2024 9:55 AM CDT Anal squamous cell carcinoma (HCC) Anal cancer (HCC) DIFFERENTIAL AUTO Routine 12/06/2024 9:55 AM CDT Anal squamous cell carcinoma (HCC) Anal cancer (HCC) CBC WITH AUTO DIFFERENTIAL Routine 12/06 9:55 AM CDT Anal squamous cell carcinoma (HCC) Anal cancer (HCC) COMPREHENSIVE METABOLIC PANEL Routine 9:55 AM CDT Anal squamous cell carcinoma (HCC) Anal cancer (HCC) from Last 3 Months Results * (ABNORMAL) eGFR (01/24/2025 2:10 PM CDT) eGFR 50(L) >=60 mL/min/1. 73 m2 Comment: Interpretive Data Reference Interval Normal >/= 90 mL/min/1.73m2 Mildly decreased* 60 - 89 mL/min/1.73m2 Mildly to moderately decreased 45 - 59 mL/min/1.73m2 Moderately to severely decreased 30 - 44 mL/min/1.73m2 Severely decreased 15 - 29 mL/min/1.73m2 Kidney Failure < 15 mL/min/1.73m2 *Relative to young adult level Estimated glomerular filtration rate is determined by the 2020 CKD-EPI equation recommended by the [employer] (A Unifying Approach to GFR Estimation: Recommendations of the NKF-ASK Task Force on Reassessing the Inclusion of Race in Diagnosing Kidney Disease, JASN 2020). The CKD-EPI equation should not be used for patients with unstable renal function and has not been validated in children and those over 70. Current interpretive data was last reviewed 2021. Testing performed by: [facility], [facility], [place], [address] Blood 01/24/2025 2:10 PM CDT 01/24/2025 2:41 PM CDT us Bin Ryder MD LAB BLOOD ORDERABLES Ekta agustin Result HELEN [facility]ITIA ([place]) 1 [facility] Department [place] [address] * (ABNORMAL) Differential, auto (01/24/2025 2:10 PM CDT) Pathologist [facility] Neutrophil abs 6.82(H) 1.50 - 6.50 K/cumm HELEN AVITIA ([place]) Comment:Testing performed by : [facility] [address], Medical Office [facility] [address], [place] [address] Imm gran abs 0.44(H) 0.00 - 0.10 K/cumm HELEN AVITIA ([place]) Comment:Testing performed by : [facility] [address], Medical Office [facility] [address], [place] [address] Lymphocyte abs 0.62(L) 0.80 - 3.30 K/cumm HELEN [facility]ITIA ([place]) Comment:Testing performed by : [facility] [address], Medical Office [address], [place] [address] Monocyte abs 0.77 0.20 - 0.80 K/cumm [facility] ([place]) Comment:Testing performed by : [facility] [address], Medical Office [address], [place] [address] Eosinophil abs 0.16 0.00 - 0.50 K/cumm [facility] ([place]) Comment:Testing performed by : [facility] [address], Medical Office [address], [place] [address] Basophil abs 0.07 0.00 - 0.10 K/cumm [facility] ([place]) Comment:Testing performed by : [facility] [address], Medical Office [address], [place] [address] Neutrophil pct 76.7 % [facility] ([place]) Comment: Interpretive Data Percent cell count reference ranges are not reported, since discordance with absolute values may lead to misinterpretation of CBC data. Current Interpretive Data was last revised on 2022. Testing performed by: [facility] [address], Medical Office [address], [place] [address] Imm gran pct 5.0 % [facility] ([place]) Comment: Interpretive Data Percent cell count reference ranges are not reported, since discordance with absolute values may lead to misinterpretation of CBC data. Current Interpretive Data was last revised on 2022. Testing performed by: [facility] [address], Medical Office [address], [place] [address] Lymphocyte pct 7.0 % [facility] ([place]) Comment: Interpretive Data Percent cell count reference ranges are not reported, since discordance with absolute values may lead to misinterpretation of CBC data. Current Interpretive Data was last revised on 2022. Testing performed by: [facility] [address], Medical Office [address], [place] [address] Monocyte pct 8.7 % [facility] ([place]) Comment: Interpretive Data Percent cell count reference ranges are not reported, since discordance with absolute values may lead to misinterpretation of CBC data. Current Interpretive Data was last revised on 2022. Testing performed by: [facility] [address], Medical Office [facility] [address] [facility] [address], [place] [address] Eosinophil pct 1.8 % ALYSSIA AVITIA ([place]) Comment: Interpretive Data Percent cell count reference ranges are not reported, since discordance with absolute values may lead to misinterpretation of CBC data. Current Interpretive Data was last revised on 2022. Testing performed by: [facility] [address], Medical Office [facility] [address] [facility] [address], [place] [address] Basophil pct 0.8 % HELEN AVITIA ([place]) Comment: Interpretive Data Percent cell count reference ranges are not reported, since discordance with absolute values may lead to misinterpretation of CBC data. Current Interpretive Data was last revised on 2022. Testing performed by: [facility] [address], Medical Office [facility] [address], [place] [address] Blood 01/24/2025 2:10 PM CDT 01/24/2025 2:14 PM CDT us Bin Ryder MD LAB BLOOD ORDERABLES Ekta l Result HELEN AVITIA ([place]) 1 [facility] Department [place] [address] * (ABNORMAL) CBC with auto differential (01/24/2025 2:10 PM CDT) WBC 8.88 3.80 - 9.90 K/cumm HELEN AVITIA ([place]) Comment:Testing performed by : [facility] [address], Medical Office [facility] [address], [place] [address] Hgb 9.1(L) 13.0 - 17.5 g/dL HELEN AVITIA ([place]) Comment:Testing performed by : [facility] [address], Medical Office [facility] [address], [place] [address] Hct 30.0(L) 38.9 - 50.3 % HELEN AVITIA ([place]) Comment:Testing performed by : [facility] [address], Medical Office [facility] [address] [facility] [address], [place] [address] Plt 285 150 - 400 K/cumm [facility] ([place]) Comment:Testing performed by : [facility] [address], Medical Office [facility] [address] [facility] [address], [place] [address] MPV 9.6 9.1 - 12.3 fL [facility] ([place]) Comment:Testing performed by : [facility] [address], Medical Office [facility] [address] [facility] [address], [place] [address] RBC 3.11(L) 4.30 - 5.80 M/cumm [facility] ([place]) Comment:Testing performed by : [facility] [address], Medical Office [facility] [address] [facility] [address], [place] [address] MCV 96.5(H) 81.3 - 96.4 fL [facility] ([place]) Comment:Testing performed by : [facility] [address], Medical Office [facility] [address], [place] [address] MCH 29.3 27.1 - 33.3 pg [facility] ([place]) Comment:Testing performed by : [facility] [address], Medical Office [facility] [address] [facility] [address], [place] [address] MCHC 30.3(L) 32.3 - 35.7 g/dL [facility] ([place]) Comment:Testing performed by : [facility] [address], Medical Office [facility] [address] [facility] [address], [place] [address] RDW CV 18.8(H) 11.1 - 14.9 % [facility] ([place]) Comment:Testing performed by : [facility] [address], Medical Office [facility] [address], [place] [address] RDW SD 65.1(H) 35.7 - 48.1 fL [facility] ([place]) Comment:Testing performed by : [facility] [address], Medical Office [facility] [address], [place] [address] Blood 01/24/2025 2:10 PM CDT 01/24/2025 2:14 PM CDT Bin Ryder MD LAB BLOOD ORDERABLES Ekta agustin Result [facility] ([place]) 1 [facility] Department [place] [address] * (ABNORMAL) Comprehensive metabolic panel (01/24/2025 2:10 PM CDT) Sodium 137 135 - 145 mmol/L [facility] ([place]) Potassium, pl 4.0 3.3 - 4.9 mmol/L [facility] ([place]) Chloride 108 97 - 110 mmol/L [facility] ([place]) CO2 18(L) 22 - 32 mmol/L [facility] ([place]) Anion gap 11 2 - 15 mmol/L [facility] ([place]) BUN 25 6 - 25 mg/dL [facility] ([place]) Creatinine 1.49(H) 0.80 - 1.30 mg/dL [facility] ([place]) Glucose 109 70 - 199 mg/dL [facility] ([place]) Comment: Interpretive Data Fasting glucose >/= 126 mg/dl is diagnostic for diabetes. Fasting is defined as no caloric intake for at least 8 hours. Fasting glucose between 100 mg/dl to 125 mg/dl is diagnostic of prediabetes. In a patient with classic symptoms of hyperglycemia or hyperglycemic crisis, a random glucose >/= 200 mg/dl is diagnostic for diabetes. In the absence of unequivocal hyperglycemia, results should be confirmed by repeat testing. The classification and Diagnosis of Diabetes Diabetes Care 202; 46: S19-S40. Current interpretive data was last revised 2022. Calcium 8.9 8.5 - 10.3 mg/dL [facility] ([place]) Bilirubin, total <0.2 0.1 - 1.2 mg/dL [facility] ([place]) Protein, pl 7.1 6.5 - 8.5 g/dL [facility] ([place]) Albumin 3.4(L) 3.5 - 5.0 g/dL [facility] ([place]) Alk phos 66 40 - 130 Units/L [facility] ([place]) ALT 9 7 - 55 Units/L [facility] ([place]) AST 13 10 - 50 Units/L [facility] ([place]) Blood 01/24/2025 2:10 PM CDT 01/24/2025 2:41 PM CDT us Bin Ryder MD LAB BLOOD ORDERABLES Ekta agustin Result [facility] ([place]) 1 [facility] Department [place] [address] * CT Chest Abdomen Pelvis W Contrast (01/05/2025 3:52 PM CDT) Anatomical Region Laterality Modality Body N/A Computed Tomogra phy 01/15/2025 12:2 2 AM CDT Narrative 01/15/2025 1:01 AM CDT EXAM DESCRIPTION: CT CHEST ABDOMEN PELVIS W CONTRAST REASON FOR STUDY: Metastatic disease evaluation, Anal cancer s/p chemo and radiation, assess treatment response, assess for metastasis F/u anal cancer, treated with chemo and radiation. TECHNIQUE: CT scan of the chest, abdomen, and pelvis performed with intravenous and without oral contrast using helical scanning technique with dynamic intravenous contrast injection. Reconstructed coronal and sagittal MPR images reviewed. All images stored on PACS. Automated exposure control was used as a dose optimization technique for this examination. CONTRAST TYPE/DOSE: 75mL of IOVERSOL 350 MG IODINE/ML INTRAVENOUS SYRINGE injected COMPARISON: 12/29/2024, 12/27/2024 FINDINGS: CHEST LUNGS: Mild upper lobe predominant bilateral pulmonary emphysema. Mild scattered bilateral pulmonary parenchymal scarring and subsegmental atelectasis. No discrete suspicious pulmonary nodules. Mild bilateral bronchial wall thickening. PLEURA: No pleural effusion. No pneumothorax. MEDIASTINUM/YAN: No identified masses or lymphadenopathy. No supraclavicular lymphadenopathy. The esophagus is within normal limits. HEART: Heart size is normal with no pericardial effusion. VASCULATURE CHEST: No thoracic aortic aneurysm or dissection. No CT evidence of pulmonary embolism. AXILLA: No adenopathy. CHEST WALL: No masses. No subcutaneous air. Mild bilateral gynecomastia. HARDWARE/LINES/TUBES: The tip of left chest wall port catheter terminates at the superior cavoatrial junction. MUSCULOSKELETAL CHEST: No acute fractures or aggressive osseous lesions. Unchanged nondisplaced/minimally displaced fractures of right 8th-12th ribs. ABDOMEN/PELVIS LIVER: Normal size. No discrete focal hepatic lesions. The hepatic and portal veins are patent. GALLBLADDER: Normal. BILE DUCTS: No intrahepatic or extrahepatic ductal dilatation. SPLEEN: Normal size. No focal lesions. PANCREAS: No identified cystic or solid masses. No significant calcifications. No adjacent inflammation or peripancreatic fluid collections. Pancreatic duct not dilated. ADRENALS: Normal. KIDNEYS/URINARY TRACT/ REPRODUCTIVE: No identified significant cystic or solid masses. No visualized stones. No hydronephrosis or hydroureter. Symmetric enhancement. There is circumferential thickening of the urinary bladder wall with mild mucosal hyperemia which is decompressed. Tiny locule of gas within the gallbladder lumen due to recent instrumentation. A Greco catheter is present with the balloon positioned within the prostatic urethra. There is an indeterminate hypoattenuating structure within the right seminal vesicle measuring 4 mm which has not substantially changed. GI: The stomach is normal. The small bowel is normal in course and caliber with no evidence of obstruction or inflammation. A left lower quadrant colostomy present. No CT evidence of colonic obstruction or perforation. The appendix is normal. There is circumferential thickening of the mid/lower rectal wall extending to the anorectal region in this patient with history of anal cancer previously managed by radiation therapy. Two percutaneous catheters/drains in the samantha-anorectal region are present which terminate adjacent to the anteromedial margin of the left ischiorectal fossa and adjacent to the posteroinferior and medial margin of the right ischiorectal fossa. There is mild presacral fat stranding which can be seen as sequela of prior radiation therapy. PERITONEUM: No ascites or free air. No lymphadenopathy. RETROPERITONEUM: No mass or adenopathy. VASCULATURE ABDOMEN: No abdominal aortic aneurysm. The abdominal aorta and its branches are patent. MUSCULOSKELETAL ABDOMEN PELVIS: No acute fractures or aggressive osseous. OTHER: Prominent but nonenlarged bilateral inguinal station lymph nodes of not substantially changed. IMPRESSION: 1. Redemonstration of circumferential thickening of the mid/lower rectal wall extending to the anorectal region in this patient with history of anal cancer previously managed by radiation therapy. 2. No CT evidence of metastases in the chest, abdomen or pelvis. 3. Circumferential thickening of the urinary bladder wall with mild mucosal hyperemia and perivesical fat stranding which can be seen with cystitis which could be infectious or radiation induced in etiology. Clinical correlation is recommended. 4. Greco catheter with the balloon positioned within the prostatic urethra. Repositioning is recommended. THIS IS AN ELECTRONICALLY VERIFIED FINAL REPORT 01/15/2025 1:01 AM - Electronically signed by Medhat Solis M.D. AT: AT Report ID: [id number] Reading Location: [place] [address] Procedure Note Medhat Solis MD - 01/15/2025 EXAM DESCRIPTION: CT CHEST ABDOMEN PELVIS W CONTRAST REASON FOR STUDY: Metastatic disease evaluation, Anal cancer s/p chemo and radiation, assess treatment response, assess for metastasis F/u anal cancer, treated with chemo and radiation. TECHNIQUE: CT scan of the chest, abdomen, and pelvis performed with intravenous and without oral contrast using helical scanning techniquewith dynamic intravenous contrast injection. Reconstructed coronal and sagittalMPR images reviewed. All images stored on PACS. Automated exposure control was used as a dose optimization technique for this examination. CONTRAST TYPE/DOSE: 75mL of IOVERSOL 350 MG IODINE/ML INTRAVENOUS SYRINGE injected COMPARISON: 12/29/2024, 12/27/2024 FINDINGS: CHEST LUNGS: Mild upper lobe predominant bilateral pulmonary emphysema. Mild scattered bilateral pulmonary parenchymal scarring and subsegmental atelectasis. No discrete suspicious pulmonary nodules. Mild bilateral bronchial wall thickening. PLEURA: No pleural effusion. No pneumothorax. MEDIASTINUM/YAN: No identified masses or lymphadenopathy. No supraclavicular lymphadenopathy. The esophagus is within normal limits. HEART: Heart size is normal with no pericardial effusion. VASCULATURE CHEST: No thoracic aortic aneurysm or dissection. No CT evidence of pulmonary embolism. AXILLA: No adenopathy. CHEST WALL: No masses. No subcutaneous air. Mild bilateralgynecomastia. HARDWARE/LINES/TUBES: The tip of left chest wall port catheterterminates at the superior cavoatrial junction. MUSCULOSKELETAL CHEST: No acute fractures or aggressive osseous lesions. Unchanged nondisplaced/minimally displaced fractures of right 8th-12thribs. ABDOMEN/PELVIS LIVER: Normal size. No discrete focal hepatic lesions. The hepatic and portal veins are patent. GALLBLADDER: Normal. BILE DUCTS: No intrahepatic or extrahepatic ductal dilatation. SPLEEN: Normal size. No focal lesions. PANCREAS: No identified cystic or solid masses. No significant calcifications. No adjacent inflammation or peripancreatic fluidcollections. Pancreatic duct not dilated. ADRENALS: Normal. KIDNEYS/URINARY TRACT/ REPRODUCTIVE: No identified significant cystic or solid masses. No visualized stones. No hydronephrosis or hydroureter. Symmetric enhancement. There is circumferential thickening of theurinary bladder wall with mild mucosal hyperemia which is decompressed. Tinylocule of gas within the gallbladder lumen due to recent instrumentation. AFoley catheter is present with the balloon positioned within the prostaticurethra. There is an indeterminate hypoattenuating structure within the rightseminal vesicle measuring 4 mm which has not substantially changed. GI: The stomach is normal. The small bowel is normal in course andcaliber with no evidence of obstruction or inflammation. A left lower quadrant colostomy present. No CT evidence of colonic obstruction or perforation.The appendix is normal. There is circumferential thickening of the mid/lower rectal wall extending to the anorectal region in this patient with historyof anal cancer previously managed by radiation therapy. Two percutaneous catheters/drains in the samantha-anorectal region are present which terminate adjacent to the anteromedial margin of the left ischiorectal fossa and adjacent to the posteroinferior and medial margin of the rightischiorectal fossa. There is mild presacral fat stranding which can be seen as sequelaof prior radiation therapy. PERITONEUM: No ascites or free air. No lymphadenopathy. RETROPERITONEUM: No mass or adenopathy. VASCULATURE ABDOMEN: No abdominal aortic aneurysm. The abdominal aortaand its branches are patent. MUSCULOSKELETAL ABDOMEN PELVIS: No acute fractures or aggressiveosseous. OTHER: Prominent but nonenlarged bilateral inguinal station lymph nodesof not substantially changed. IMPRESSION: 1. Redemonstration of circumferential thickening of the mid/lower rectal wall extending to the anorectal region in this patient with history ofanal cancer previously managed by radiation therapy. 2. No CT evidence of metastases in the chest, abdomen or pelvis. 3. Circumferential thickening of the urinary bladder wall with mildmucosal hyperemia and perivesical fat stranding which can be seen with cystitiswhich could be infectious or radiation induced in etiology. Clinicalcorrelation is recommended. 4. Greco catheter with the balloon positioned within the prostaticurethra. Repositioning is recommended. THIS IS AN ELECTRONICALLY VERIFIED FINAL REPORT 01/15/2025 1:01 AM - Electronically signed by Anderanik Will Solis M.D. AT: AT Report ID: [id number] Reading Location: [id number] Bin Ryder MD IMG CT PROCEDURES Final R esult * (ABNORMAL) Creatinine, whole blood (01/05/2025 2:40 PM CDT) Pathologist [facility] Creatinine, bld 1.93(H) 0.60 - 1.30 mg/dL Blood 01/05/2025 2:40 PM CDT 01/05/2025 2:43 PM CDT Bin Ryder MD LAB BLOOD ORDERABLES Ekta l Result [facility] 1 [facility] Department [place] [address] * (ABNORMAL) CBC with auto differential (01/04/2025 5:59 AM CDT) Pathologist [facility] WBC 6.76 3.80 - 9.90 K/cumm Hgb 9.2(L) 13.0 - 17.5 g/dL [facility] ([place]) Hct 30.5(L) 38.9 - 50.3 % [facility] ([place]) Plt 247 150 - 400 K/cumm [facility] ([place]) MPV 11.2 9.1 - 12.3 fL [facility] ([place]) RBC 3.12(L) 4.30 - 5.80 M/cumm [facility] ([place]) MCV 97.8(H) 81.3 - 96.4 fL [facility] ([place]) MCH 29.5 27.1 - 33.3 pg [facility] ([place]) MCHC 30.2(L) 32.3 - 35.7 g/dL [facility] ([place]) RDW CV 18.0(H) 11.1 - 14.9 % [facility] ([place]) RDW SD 63.1(H) 35.7 - 48.1 fL [facility] ([place]) NRBC abs 0.00 0.00 - 0.01 K/cumm [facility] ([place]) Blood 01/04/2025 5:59 AM CDT 01/04/2025 6:03 AM CDT Juancho Conrad MD LAB BLOOD ORDERABLES Final Result [facility] ([place]) 1 [facility] Department [place] [address] * (ABNORMAL) Manual Differential (01/04/2025 5:59 AM CDT) Differential Manual Cells Counted 100 [facility] ([place]) Neutrophil abs 4.66 1.50 - 6.50 K/cumm [facility] ([place]) Imm gran abs 0.74(H) 0.00 - 0.10 K/cumm [facility] ([place]) Lymphocyte abs 0.34(L) 0.80 - 3.30 K/cumm [facility] ([place]) Monocyte abs 0.74 0.20 - 0.80 K/cumm [facility] ([place]) Eosinophil abs 0.14 0.00 - 0.50 K/cumm [facility] ([place]) Basophil abs 0.14(H) 0.00 - 0.10 K/cumm [facility] ([place]) Neutrophil pct 64.0 % [facility] ([place]) Comment: Interpretive Data Percent cell count reference ranges are not reported, since discordance with absolute values may lead to misinterpretation of CBC data. Current Interpretive Data was last revised on 2017. Lymphocyte pct 5.0 % [facility] ([place]) Comment: Interpretive Data Percent cell count reference ranges are not reported, since discordance with absolute values may lead to misinterpretation of CBC data. Current Interpretive Data was last revised on 2017. Monocyte pct 11.0 % [facility] ([place]) Comment: Interpretive Data Percent cell count reference ranges are not reported, since discordance with absolute values may lead to misinterpretation of CBC data. Current Interpretive Data was last revised on 2017. Eosinophil pct 2.0 % [facility] ([place]) Comment: Interpretive Data Percent cell count reference ranges are not reported, since discordance with absolute values may lead to misinterpretation of CBC data. Current Interpretive Data was last revised on 2017. Basophil pct 2.0 % [facility] ([place]) Comment: Interpretive Data Percent cell count reference ranges are not reported, since discordance with absolute values may lead to misinterpretation of CBC data. Current Interpretive Data was last revised on 2017. Band Neutrophil pct 5.0 0.0 - 5.0 % [facility] ([place]) Metamyelocyte pct 4.0(H) 0.0 - 0.0 % [facility] ([place]) Myelocyte pct 7.0(H) 0.0 - 0.0 % [facility] [place]) RBC morphology Consistent with RBC Indicies [facility] ([place]) Platelet estimate Adequate [facility] ([place]) Blood 01/04/2025 5:59 AM CDT 01/04/2025 6:03 AM CDT Juancho Conrad MD LAB BLOOD ORDERABLES Final Result [facility] ([place]) 1 [facility] Department [place] [address] * (ABNORMAL) CBC with auto differential (01/03/2025 6:28 AM CDT) WBC 6.80 3.80 - 9.90 K/cumm Hgb 9.2(L) 13.0 - 17.5 g/dL [facility] ([place]) Hct 30.3(L) 38.9 - 50.3 % [facility] ([place]) Plt 249 150 - 400 K/cumm [facility] ([place]) MPV 11.3 9.1 - 12.3 fL [facility] ([place]) RBC 3.12(L) 4.30 - 5.80 M/cumm [facility] ([place]) MCV 97.1(H) 81.3 - 96.4 fL [facility] ([place]) MCH 29.5 27.1 - 33.3 pg [facility] ([place]) MCHC 30.4(L) 32.3 - 35.7 g/dL [facility] ([place]) RDW CV 17.9(H) 11.1 - 14.9 % [facility] ([place]) RDW SD 62.4(H) 35.7 - 48.1 fL [facility] ([place]) NRBC abs 0.00 0.00 - 0.01 K/cumm [facility] ([place]) Blood 01/03/2025 6:28 AM CDT 01/03/2025 6:32 AM CDT us Juancho Conrad MD LAB BLOOD ORDERABLES Final Result [facility] ([place]) 1 [facility] Department [place] [address] * (ABNORMAL) Manual Differential (01/03/2025 6:28 AM CDT) Differential Manual Cells Counted 100 [facility] ([place]) Neutrophil abs 4.35 1.50 - 6.50 K/cumm [facility] ([place]) Imm gran abs 0.68(H) 0.00 - 0.10 K/cumm [facility] ([place]) Lymphocyte abs 0.82 0.80 - 3.30 K/cumm [facility] ([place]) Monocyte abs 0.48 0.20 - 0.80 K/cumm [facility] ([place]) Eosinophil abs 0.34 0.00 - 0.50 K/cumm [facility] ([place]) Basophil abs 0.14(H) 0.00 - 0.10 K/cumm [facility] ([place]) Neutrophil pct 59.0 % [facility] ([place]) Comment: Interpretive Data Percent cell count reference ranges are not reported, since discordance with absolute values may lead to misinterpretation of CBC data. Current Interpretive Data was last revised on 2017. Lymphocyte pct 7.0 % [facility] ([place]) Comment: Interpretive Data Percent cell count reference ranges are not reported, since discordance with absolute values may lead to misinterpretation of CBC data. Current Interpretive Data was last revised on 2017. Monocyte pct 7.0 % [facility] ([place]) Comment: Interpretive Data Percent cell count reference ranges are not reported, since discordance with absolute values may lead to misinterpretation of CBC data. Current Interpretive Data was last revised on 2017. Eosinophil pct 5.0 % [facility] ([place]) Comment: Interpretive Data Percent cell count reference ranges are not reported, since discordance with absolute values may lead to misinterpretation of CBC data. Current Interpretive Data was last revised on 2017. Basophil pct 2.0 % [facility] ([place]) Comment: Interpretive Data Percent cell count reference ranges are not reported, since discordance with absolute values may lead to misinterpretation of CBC data. Current Interpretive Data was last revised on 2017. Band Neutrophil pct 5.0 0.0 - 5.0 % [facility]) Metamyelocyte pct 1.0(H) 0.0 - 0.0 % [facility] ([place]) Myelocyte pct 6.0(H) 0.0 - 0.0 % [facility] ([place]) Promyelocyte pct 3.0(H) 0.0 - 0.0 % [facility] ([place]) Variant lymph pct 5.0(H) 0.0 - 0.0 % [facility] [place]) RBC morphology Consistent with RBC Indicies [facility] ([place]) Macrocytes 8-15/HPF(A) [facility] ([place]) Platelet estimate Adequate [facility] ([place]) Blood 01/03/2025 6:28 AM CDT 01/03/2025 6:32 AM CDT us Juancho Conrad MD LAB BLOOD ORDERABLES Final Result [facility] ([place]) 1 [facility] Department of Laboratories [place], [place] [id number] * (ABNORMAL) eGFR (01/02/2025 5:37 AM CDT) eGFR 43(L) >=60 mL/min/1. 73 m2 Comment: Interpretive Data Reference Interval Normal >/= 90 mL/min/1.73m2 Mildly decreased* 60 - 89 mL/min/1.73m2 Mildly to moderately decreased 45 - 59 mL/min/1.73m2 Moderately to severely decreased 30 - 44 mL/min/1.73m2 Severely decreased 15 - 29 mL/min/1.73m2 Kidney Failure < 15 mL/min/1.73m2 *Relative to young adult level Estimated glomerular filtration rate is determined by the 2020 CKD-EPI equation recommended by the National Kidney Foundation (A Unifying Approach to GFR Estimation: Recommendations of the NKF-ASK Task Force on Reassessing the Inclusion of Race in Diagnosing Kidney Disease, JASN 2020). The CKD-EPI equation should not be used for patients with unstable renal function and has not been validated in children and those over 70. Current interpretive data was last reviewed 2021. Blood 01/02/2025 5:37 AM CDT 01/02/2025 5:49 AM CDT us Ted Browne MD LAB BLOOD ORDERABLES Final Re sult [facility] ([place]) 1 [facility] Department [place] [address] * (ABNORMAL) CBC with auto differential (01/02/2025 5:37 AM CDT) WBC 7.40 3.80 - 9.90 K/cumm Hgb 8.1(L) 13.0 - 17.5 g/dL [facility] ([place]) Hct 26.5(L) 38.9 - 50.3 % [facility] ([place]) Plt 216 150 - 400 K/cumm [facility] ([place]) MPV 11.6 9.1 - 12.3 fL [facility] [place]) RBC 2.73(L) 4.30 - 5.80 M/cumm [facility] ([place]) MCV 97.1(H) 81.3 - 96.4 fL [facility] ([place]) MCH 29.7 27.1 - 33.3 pg [facility] ([place]) MCHC 30.6(L) 32.3 - 35.7 g/dL [facility] ([place]) RDW CV 17.7(H) 11.1 - 14.9 % [facility] [place]) RDW SD 62.4(H) 35.7 - 48.1 fL [facility] ([place]) NRBC abs 0.00 0.00 - 0.01 K/cumm [facility] ([place]) Blood 01/02/2025 5:37 AM CDT 01/02/2025 5:49 AM CDT Juancho Conrad MD LAB BLOOD ORDERABLES Final Result [facility] ([place]) 1 [facility] Department [place] [address] * (ABNORMAL) Manual Differential (01/02/2025 5:37 AM CDT) Differential Manual Cells Counted 100 [facility] ([place]) Neutrophil abs 5.85 1.50 - 6.50 K/cumm [facility] ([place]) Imm gran abs 0.22(H) 0.00 - 0.10 K/cumm [facility] ([place]) Lymphocyte abs 0.81 0.80 - 3.30 K/cumm [facility] ([place]) Monocyte abs 0.44 0.20 - 0.80 K/cumm [facility] ([place]) Basophil abs 0.07 0.00 - 0.10 K/cumm [facility] ([place]) Neutrophil pct 75.0 % [facility] ([place]) Comment: Interpretive Data Percent cell count reference ranges are not reported, since discordance with absolute values may lead to misinterpretation of CBC data. Current Interpretive Data was last revised on 2017. Lymphocyte pct 11.0 % [facility] ([place]) Comment: Interpretive Data Percent cell count reference ranges are not reported, since discordance with absolute values may lead to misinterpretation of CBC data. Current Interpretive Data was last revised on 2017. Monocyte pct 6.0 % [facility] ([place]) Comment: Interpretive Data Percent cell count reference ranges are not reported, since discordance with absolute values may lead to misinterpretation of CBC data. Current Interpretive Data was last revised on 2017. Basophil pct 1.0 % [facility] ([place]) Comment: Interpretive Data Percent cell count reference ranges are not reported, since discordance with absolute values may lead to misinterpretation of CBC data. Current Interpretive Data was last revised on 2017. Band Neutrophil pct 4.0 0.0 - 5.0 % [facility] ([place]) Metamyelocyte pct 2.0(H) 0.0 - 0.0 % [facility] ([place]) Myelocyte pct 1.0(H) 0.0 - 0.0 % [facility] [place]) RBC morphology Consistent with RBC Indicies [facility] ([place]) Platelet estimate Adequate [facility] ([place]) Blood 01/02/2025 5:37 AM CDT 01/02/2025 5:49 AM CDT Juancho Conrad MD LAB BLOOD ORDERABLES Final Result [facility] ([place]) 1 [facility] Department [place] [address] * (ABNORMAL) Renal function panel (01/02/2025 5:37 AM CDT) Sodium 142 135 - 145 mmol/L Potassium, pl 3.7 3.3 - 4.9 mmol/L [facility] Chloride 111(H) 97 - 110 mmol/L [facility] CO2 20(L) 22 - 32 mmol/L [facility]) Anion gap 11 2 - 15 mmol/L [facility] ([place]) BUN 26(H) 6 - 25 mg/dL [facility] Creatinine 1.69(H) 0.80 - 1.30 mg/dL [facility] ([place]) Glucose 84 70 - 199 mg/dL [facility] ([place]) Comment: Interpretive Data Fasting glucose >/= 126 mg/dl is diagnostic for diabetes. Fasting is defined as no caloric intake for at least 8 hours. Fasting glucose between 100 mg/dl to 125 mg/dl is diagnostic of prediabetes. In a patient with classic symptoms of hyperglycemia or hyperglycemic crisis, a random glucose >/= 200 mg/dl is diagnostic for diabetes. In the absence of unequivocal hyperglycemia, results should be confirmed by repeat testing. The classification and Diagnosis of Diabetes Diabetes Care 2021; 46: S19-S40. Current interpretive data was last revised 2022. Calcium 8.7 8.5 - 10.3 mg/dL [facility] ([place]) Phosphorus, pl 2.6 2.3 - 4.5 mg/dL [facility]) Albumin 2.6(L) 3.5 - 5.0 g/dL [facility] ([place]) Blood 01/02/2025 5:37 AM CDT 01/02/2025 5:49 AM CDT us Ted Browne MD LAB BLOOD ORDERABLES Final Re sult [facility] ([place]) 1 [facility] Department [place] [address] * (ABNORMAL) eGFR (01/01/2025 5:59 AM CDT) eGFR 44(L) >=60 mL/min/1. 73 m2 Comment: Interpretive Data Reference Interval Normal >/= 90 mL/min/1.73m2 Mildly decreased* 60 - 89 mL/min/1.73m2 Mildly to moderately decreased 45 - 59 mL/min/1.73m2 Moderately to severely decreased 30 - 44 mL/min/1.73m2 Severely decreased 15 - 29 mL/min/1.73m2 Kidney Failure < 15 mL/min/1.73m2 *Relative to young adult level Estimated glomerular filtration rate is determined by the 2020 CKD-EPI equation recommended by the National Kidney Foundation (A Unifying Approach to GFR Estimation: Recommendations of the NKF-ASK Task Force on Reassessing the Inclusion of Race in Diagnosing Kidney Disease, JASN 2020). The CKD-EPI equation should not be used for patients with unstable renal function and has not been validated in children and those over 70. Current interpretive data was last reviewed 2021. Blood 01/01/2025 5:59 AM CDT 01/01/2025 6:16 AM CDT us Ted Browne MD LAB BLOOD ORDERABLES Final Re sult [facility] ([place]) 1 [facility] Department [place] [address] * (ABNORMAL) CBC with auto differential (01/01/2025 5:59 AM CDT) [facility] WBC 8.60 3.80 - 9.90 K/cumm Hgb 8.2(L) 13.0 - 17.5 g/dL [facility] ([place]) Hct 26.6(L) 38.9 - 50.3 % [facility] ([place]) Plt 212 150 - 400 K/cumm [facility] ([place]) MPV 11.7 9.1 - 12.3 fL [facility] ([place]) RBC 2.74(L) 4.30 - 5.80 M/cumm [facility] ([place]) MCV 97.1(H) 81.3 - 96.4 fL [facility] ([place]) MCH 29.9 27.1 - 33.3 pg [facility] ([place]) MCHC 30.8(L) 32.3 - 35.7 g/dL [facility] ([place]) RDW CV 17.5(H) 11.1 - 14.9 % [facility] ([place]) RDW SD 62.3(H) 35.7 - 48.1 fL [facility] ([place]) NRBC abs 0.00 0.00 - 0.01 K/cumm [facility] ([place]) Blood 01/01/2025 5:59 AM CDT 01/01/2025 6:16 AM CDT us Juancho Conrad MD LAB BLOOD ORDERABLES Final Result [facility] ([place]) 1 [facility] Department [place] [address] * (ABNORMAL) Manual Differential (01/01/2025 5:59 AM CDT) Differential Manual Cells Counted 100 [facility] ([place]) Neutrophil abs 7.31(H) 1.50 - 6.50 K/cumm [facility] ([place]) Imm gran abs 0.26(H) 0.00 - 0.10 K/cumm [facility] ([place]) Lymphocyte abs 0.86 0.80 - 3.30 K/cumm [facility] ([place]) Monocyte abs 0.17(L) 0.20 - 0.80 K/cumm [facility] ([place]) Neutrophil pct 78.0 % [facility] ([place]) Comment: Interpretive Data Percent cell count reference ranges are not reported, since discordance with absolute values may lead to misinterpretation of CBC data. Current Interpretive Data was last revised on 2017. Lymphocyte pct 9.0 % [facility] ([place]) Comment: Interpretive Data Percent cell count reference ranges are not reported, since discordance with absolute values may lead to misinterpretation of CBC data. Current Interpretive Data was last revised on 2017. Monocyte pct 2.0 % [facility] ([place]) Comment: Interpretive Data Percent cell count reference ranges are not reported, since discordance with absolute values may lead to misinterpretation of CBC data. Current Interpretive Data was last revised on 2017. Band Neutrophil pct 7.0(H) 0.0 - 5.0 % [facility] ([place]) Metamyelocyte pct 1.0(H) 0.0 - 0.0 % [facility] ([place]) Myelocyte pct 2.0(H) 0.0 - 0.0 % [facility] ([place]) Variant lymph pct 1.0(H) 0.0 - 0.0 % [facility] ([place]) RBC morphology Consistent with RBC Indicies [facility] ([place]) Platelet estimate Adequate [facility] ([place]) Blood 01/01/2025 5:59 AM CDT 01/01/2025 6:16 AM CDT us Juancho Conrad MD LAB BLOOD ORDERABLES Final Result [facility] ([place]) 1 [facility] Department [place] [address] * (ABNORMAL) Renal function panel (01/01/2025 5:59 AM CDT) Sodium 142 135 - 145 mmol/L Potassium, pl 3.6 3.3 - 4.9 mmol/L [facility] ([place]) Chloride 110 97 - 110 mmol/L [facility] ([place]) CO2 18(L) 22 - 32 mmol/L [facility]) Anion gap 14 2 - 15 mmol/L [facility] ([place]) BUN 29(H) 6 - 25 mg/dL [facility]) Creatinine 1.65(H) 0.80 - 1.30 mg/dL [facility] ([place]) Glucose 102 70 - 199 mg/dL [facility] ([place]) Comment: Interpretive Data Fasting glucose >/= 126 mg/dl is diagnostic for diabetes. Fasting is defined as no caloric intake for at least 8 hours. Fasting glucose between 100 mg/dl to 125 mg/dl is diagnostic of prediabetes. In a patient with classic symptoms of hyperglycemia or hyperglycemic crisis, a random glucose >/= 200 mg/dl is diagnostic for diabetes. In the absence of unequivocal hyperglycemia, results should be confirmed by repeat testing. The classification and Diagnosis of Diabetes Diabetes Care 2021; 46: S19-S40. Current interpretive data was last revised 2022. Calcium 8.6 8.5 - 10.3 mg/dL [facility] ([place]) Phosphorus, pl 3.2 2.3 - 4.5 mg/dL [facility] ([place]) Albumin 2.6(L) 3.5 - 5.0 g/dL [facility] ([place]) Blood 01/01/2025 5:59 AM CDT 01/01/2025 6:16 AM CDT us Ted Browne MD LAB BLOOD ORDERABLES Final Re sult [facility] ([place]) 1 [facility] Department [place] [address] * (ABNORMAL) eGFR (12/31/2024 6:27 AM CDT) eGFR 40(L) >=60 mL/min/1. 73 m2 Comment: Interpretive Data Reference Interval Normal >/= 90 mL/min/1.73m2 Mildly decreased* 60 - 89 mL/min/1.73m2 Mildly to moderately decreased 45 - 59 mL/min/1.73m2 Moderately to severely decreased 30 - 44 mL/min/1.73m2 Severely decreased 15 - 29 mL/min/1.73m2 Kidney Failure < 15 mL/min/1.73m2 *Relative to young adult level Estimated glomerular filtration rate is determined by the 2020 CKD-EPI equation recommended by the National Kidney Foundation (A Unifying Approach to GFR Estimation: Recommendations of the NKF-ASK Task Force on Reassessing the Inclusion of Race in Diagnosing Kidney Disease, JASN 2020). The CKD-EPI equation should not be used for patients with unstable renal function and has not been validated in children and those over 70. Current interpretive data was last reviewed 2021. Blood 12/31/2024 6:27 AM CDT 12/31/2024 6:31 AM CDT us Ted Browne MD LAB BLOOD ORDERABLES Final Re sult [facility] ([place]) 1 [facility] Department [place] [address] * (ABNORMAL) Differential, auto (12/31/2024 6:27 AM CDT) Neutrophil abs 6.31 1.50 - 6.50 K/cumm Imm gran abs 0.38(H) 0.00 - 0.10 K/cumm [facility] ([place]) Lymphocyte abs 0.50(L) 0.80 - 3.30 K/cumm [facility] ([place]) Monocyte abs 0.63 0.20 - 0.80 K/cumm [facility] ([place]) Eosinophil abs 0.11 0.00 - 0.50 K/cumm [facility] ([place]) Basophil abs 0.04 0.00 - 0.10 K/cumm [facility] ([place]) Neutrophil pct 79.1 % [facility] ([place]) Comment: Interpretive Data Percent cell count reference ranges are not reported, since discordance with absolute values may lead to misinterpretation of CBC data. Current Interpretive Data was last revised on 2017. Imm gran pct 4.8 % [facility] ([place]) Comment: Interpretive Data Percent cell count reference ranges are not reported, since discordance with absolute values may lead to misinterpretation of CBC data. Current Interpretive Data was last revised on 2017. Lymphocyte pct 6.3 % [facility] ([place]) Comment: Interpretive Data Percent cell count reference ranges are not reported, since discordance with absolute values may lead to misinterpretation of CBC data. Current Interpretive Data was last revised on 2017. Monocyte pct 7.9 % [facility] ([place]) Comment: Interpretive Data Percent cell count reference ranges are not reported, since discordance with absolute values may lead to misinterpretation of CBC data. Current Interpretive Data was last revised on 2017. Eosinophil pct 1.4 % [facility] ([place] Comment: Interpretive Data Percent cell count reference ranges are not reported, since discordance with absolute values may lead to misinterpretation of CBC data. Current Interpretive Data was last revised on 2017. Basophil pct 0.5 % [facility] ([place]) Comment: Interpretive Data Percent cell count reference ranges are not reported, since discordance with absolute values may lead to misinterpretation of CBC data. Current Interpretive Data was last revised on 2017. Blood 12/31/2024 6:27 AM CDT 12/31/2024 6:31 AM CDT us Juancho Conrad MD LAB BLOOD ORDERABLES Final Result [facility] ([place]) 1 [facility] Department of Laboratories [place], [place] [id number] * (ABNORMAL) CBC with auto differential (12/31/2024 6:27 AM CDT) WBC 7.97 3.80 - 9.90 K/cumm Hgb 7.9(L) 13.0 - 17.5 g/dL [facility] ([place]) Hct 25.5(L) 38.9 - 50.3 % [facility] ([place]) Plt 196 150 - 400 K/cumm [facility] ([place]) MPV 11.2 9.1 - 12.3 fL [facility] ([place]) RBC 2.64(L) 4.30 - 5.80 M/cumm [facility] ([place]) MCV 96.6(H) 81.3 - 96.4 fL [facility] ([place]) MCH 29.9 27.1 - 33.3 pg [facility] ([place]) MCHC 31.0(L) 32.3 - 35.7 g/dL [facility] ([place]) RDW CV 17.6(H) 11.1 - 14.9 % [facility]) RDW SD 62.1(H) 35.7 - 48.1 fL [facility] ([place]) NRBC abs 0.00 0.00 - 0.01 K/cumm [facility] ([place]) Blood 12/31/2024 6:27 AM CDT 12/31/2024 6:31 AM CDT us Juancho Conrad MD LAB BLOOD ORDERABLES Final Result [facility] ([place]) 1 [facility] Department [place] [address] * (ABNORMAL) Renal function panel (12/31/2024 6:27 AM CDT) Sodium 139 135 - 145 mmol/L Potassium, pl 3.8 3.3 - 4.9 mmol/L [facility] ([place]) Chloride 113(H) 97 - 110 mmol/L [facility] ([place]) CO2 16(L) 22 - 32 mmol/L [facility] ([place]) Anion gap 11 2 - 15 mmol/L [facility] ([place]) BUN 24 6 - 25 mg/dL [facility] ([place]) Creatinine 1.79(H) 0.80 - 1.30 mg/dL [facility] ([place]) Glucose 89 70 - 199 mg/dL [facility] ([place]) Comment: Interpretive Data Fasting glucose >/= 126 mg/dl is diagnostic for diabetes. Fasting is defined as no caloric intake for at least 8 hours. Fasting glucose between 100 mg/dl to 125 mg/dl is diagnostic of prediabetes. In a patient with classic symptoms of hyperglycemia or hyperglycemic crisis, a random glucose >/= 200 mg/dl is diagnostic for diabetes. In the absence of unequivocal hyperglycemia, results should be confirmed by repeat testing. The classification and Diagnosis of Diabetes Diabetes Care 202; 46: S19-S40. Current interpretive data was last revised 2022. Calcium 8.4(L) 8.5 - 10.3 mg/dL [facility] ([place]) Phosphorus, pl 3.3 2.3 - 4.5 mg/dL [facility] ([place]) Albumin 2.5(L) 3.5 - 5.0 g/dL [facility] ([place]) Blood 12/31/2024 6:27 AM CDT 12/31/2024 6:31 AM CDT us Ted Browne MD LAB BLOOD ORDERABLES Final Re sult [facility] ([place]) 1 [facility] Department [place] [address] * (ABNORMAL) eGFR (12/30/2024 11:03 AM CDT) eGFR 41(L) >=60 mL/min/1. 73 m2 Comment: Interpretive Data Reference Interval Normal >/= 90 mL/min/1.73m2 Mildly decreased* 60 - 89 mL/min/1.73m2 Mildly to moderately decreased 45 - 59 mL/min/1.73m2 Moderately to severely decreased 30 - 44 mL/min/1.73m2 Severely decreased 15 - 29 mL/min/1.73m2 Kidney Failure < 15 mL/min/1.73m2 *Relative to young adult level Estimated glomerular filtration rate is determined by the 2020 CKD-EPI equation recommended by the National Kidney Foundation (A Unifying Approach to GFR Estimation: Recommendations of the NKF-ASK Task Force on Reassessing the Inclusion of Race in Diagnosing Kidney Disease, JASN 2020). The CKD-EPI equation should not be used for patients with unstable renal function and has not been validated in children and those over 70. Current interpretive data was last reviewed 2021. Blood 12/30/2024 11:0 3 AM CDT 12/30/2024 11:18 AM CDT us Ted Browne MD LAB BLOOD ORDERABLES Final Re sult [facility] ([place]) 1 [facility] Department [place] [address] * (ABNORMAL) Renal function panel (12/30/2024 11:03 AM CDT) Sodium 140 135 - 145 mmol/L Potassium, pl 3.7 3.3 - 4.9 mmol/L [facility] ([place]) Chloride 113(H) 97 - 110 mmol/L [facility] ([place]) CO2 14(L) 22 - 32 mmol/L [facility] ([place]) Anion gap 12 2 - 15 mmol/L [facility] ([place]) BUN 27(H) 6 - 25 mg/dL [facility] ([place]) Creatinine 1.78(H) 0.80 - 1.30 mg/dL [facility] ([place]) Glucose 116 70 - 199 mg/dL [facility] ([place]) Comment: Interpretive Data Fasting glucose >/= 126 mg/dl is diagnostic for diabetes. Fasting is defined as no caloric intake for at least 8 hours. Fasting glucose between 100 mg/dl to 125 mg/dl is diagnostic of prediabetes. In a patient with classic symptoms of hyperglycemia or hyperglycemic crisis, a random glucose >/= 200 mg/dl is diagnostic for diabetes. In the absence of unequivocal hyperglycemia, results should be confirmed by repeat testing. The classification and Diagnosis of Diabetes Diabetes Care 2021; 46: S19-S40. Current interpretive data was last revised 2022. Calcium 7.9(L) 8.5 - 10.3 mg/dL [facility] ([place]) Phosphorus, pl 2.4 2.3 - 4.5 mg/dL [facility] ([place]) Albumin 2.3(L) 3.5 - 5.0 g/dL [facility] ([place]) Blood 12/30/2024 11:0 3 AM CDT 12/30/2024 11:06 AM CDT Ted Browne MD LAB BLOOD ORDERABLES Final Re sult Performing Organization Address City/[facility]/ZIP Co de Phone Number [facility] ([place]) 1 [facility] [employer] [place] [address] * (ABNORMAL) eGFR (12/30/2024 5:38 AM CDT) eGFR 37(L) >=60 mL/min/1. 73 m2 Comment: Interpretive Data Reference Interval Normal >/= 90 mL/min/1.73m2 Mildly decreased* 60 - 89 mL/min/1.73m2 Mildly to moderately decreased 45 - 59 mL/min/1.73m2 Moderately to severely decreased 30 - 44 mL/min/1.73m2 Severely decreased 15 - 29 mL/min/1.73m2 Kidney Failure < 15 mL/min/1.73m2 *Relative to young adult level Estimated glomerular filtration rate is determined by the 2020 CKD-EPI equation recommended by the National Kidney Foundation (A Unifying Approach to GFR Estimation: Recommendations of the NKF-ASK Task Force on Reassessing the Inclusion of Race in Diagnosing Kidney Disease, JASN 2020). The CKD-EPI equation should not be used for patients with unstable renal function and has not been validated in children and those over 70. Current interpretive data was last reviewed 2021. Blood 12/30/2024 5:38 AM CDT 12/30/2024 9:35 AM CDT Ted Browne MD LAB BLOOD ORDERABLES Final Re sult [facility] ([place]) 1 [facility] [place] [address] * (ABNORMAL) Differential, auto (12/30/2024 5:38 AM CDT) Neutrophil abs 5.77 1.50 - 6.50 K/cumm Imm gran abs 0.16(H) 0.00 - 0.10 K/cumm [facility] ([place]) Lymphocyte abs 0.39(L) 0.80 - 3.30 K/cumm [facility] ([place]) Monocyte abs 0.47 0.20 - 0.80 K/cumm [facility] ([place]) Eosinophil abs 0.13 0.00 - 0.50 K/cumm [facility] ([place]) Basophil abs 0.04 0.00 - 0.10 K/cumm [facility] ([place]) Neutrophil pct 82.8 % [facility] ([place]) Comment: Interpretive Data Percent cell count reference ranges are not reported, since discordance with absolute values may lead to misinterpretation of CBC data. Current Interpretive Data was last revised on 2017. Imm gran pct 2.3 % [facility] ([place]) Comment: Interpretive Data Percent cell count reference ranges are not reported, since discordance with absolute values may lead to misinterpretation of CBC data. Current Interpretive Data was last revised on 2017. Lymphocyte pct 5.6 % [facility] ([place]) Comment: Interpretive Data Percent cell count reference ranges are not reported, since discordance with absolute values may lead to misinterpretation of CBC data. Current Interpretive Data was last revised on 2017. Monocyte pct 6.8 % [facility] ([place]) Comment: Interpretive Data Percent cell count reference ranges are not reported, since discordance with absolute values may lead to misinterpretation of CBC data. Current Interpretive Data was last revised on 2017. Eosinophil pct 1.9 % [facility] ([place]) Comment: Interpretive Data Percent cell count reference ranges are not reported, since discordance with absolute values may lead to misinterpretation of CBC data. Current Interpretive Data was last revised on 2017. Basophil pct 0.6 % [facility] ([place]) Comment: Interpretive Data Percent cell count reference ranges are not reported, since discordance with absolute values may lead to misinterpretation of CBC data. Current Interpretive Data was last revised on 2017. Blood 12/30/2024 5:38 AM CDT 12/30/2024 5:55 AM CDT us Juancho Conrad MD LAB BLOOD ORDERABLES Final Result [facility] ([place]) 1 [facility] [place] [address] * Thyroid Function Lindsey (12/30/2024 5:38 AM CDT) Pathologist [facility] TSH 4.07 0.30 - 4.20 mcIUnit/mL Blood 12/30/2024 5:38 AM CDT 12/30/2024 5:55 AM CDT us Isabela CRUZ LAB BLOOD ORDERABLES Fin al Result Performing Organization Address [facility] Co de Phone Number [facility] ([place]) 1 [facility] [place] [address] * (ABNORMAL) CBC with auto differential (12/30/2024 5:38 AM CDT) [facility] WBC 6.96 3.80 - 9.90 K/cumm Hgb 7.7(L) 13.0 - 17.5 g/dL [facility] ([place]) Hct 25.4(L) 38.9 - 50.3 % [facility] ([place]) Plt 195 150 - 400 K/cumm [facility] ([place]) MPV 11.3 9.1 - 12.3 fL [facility] ([place]) RBC 2.58(L) 4.30 - 5.80 M/cumm [facility] ([place]) MCV 98.4(H) 81.3 - 96.4 fL [facility] ([place]) MCH 29.8 27.1 - 33.3 pg [facility] ([place]) MCHC 30.3(L) 32.3 - 35.7 g/dL [facility] ([place]) RDW CV 17.8(H) 11.1 - 14.9 % [facility] ([place]) RDW SD 64.8(H) 35.7 - 48.1 fL [facility] ([place]) NRBC abs 0.00 0.00 - 0.01 K/cumm JACQUEMAHSA [facility] ([place]) Blood 12/30/2024 5:38 AM CDT 12/30/2024 5:55 AM CDT us Juancho Conrad MD LAB BLOOD ORDERABLES Final Result Performing Organization Address [facility] de Phone Number [facility] ([place]) 1 [facility] [place] [address] * Celiac reflex panel (12/30/2024 5:38 AM CDT) IgA 326 61 - 356 mg/dL [place] ref Lab Celiac disease interpretation See Comment HELEN [facility] ([place]) Comment: See Comment: Negative serology. Celiac disease unlikely. However, approximately 10% of patients with celiac disease are seronegative. Also, patients who are already adhering to a gluten-free diet may be seronegative. If celiac disease is highly clinically suspected, consider HLA-DQ typing. Test Performed by: [place] [address] Corporate Director Of Human Resources: Jovan Rios Ph.D.; CLIA# [id number] Blood 12/30/2024 5:38 AM CDT 12/30/2024 5:55 AM CDT us Isabela CRUZ LAB BLOOD ORDERABLES Fin al Result Performing Organization Address [facility] Co de Phone Number [facility] ([place]) 1 [place] [address] [facility] * Tissue transglutaminase IgA (TGG-IgA Ab) (12/30/2024 5:38 AM CDT) TTG ab, IgA 1.8 <4.0 (Negative) units/mL Comment: Test Performed by: [place] [address] Corporate Director Of Human Resources: Jovan Rios Ph.D.; CLIA# [id number] Interpretive data Negative: <15 units/mL Positive: > or equal to 15 units/mL Current interpretive data was last revised on 2016. Testing performed by: [facility], [address] [place]., [address] Blood 12/30/2024 5:38 AM CDT 12/30/2024 5:55 AM CDT us Isabela CRUZ LAB BLOOD ORDERABLES Fin al Result [facility] ([place]) 1 [facility] [place] [address] * Folate (12/30/2024 5:38 AM CDT) Folic acid 16.0 >=5.0 ng/mL Comment:Slightly Hemolyzed S pecimen. Results may be affected. Blood 12/30/2024 5:38 AM CDT 12/30/2024 5:55 AM CDT us Isabela CRUZ LAB BLOOD ORDERABLES Fin al Result Performing Organization Address City/[facility]/ZIP Co de Phone Number [facility] ([place]) 1 [facility] [employer] [address] * Vitamin B12 (12/30/2024 5:38 AM CDT) Vitamin B12 314 230 - 1,250 pg/mL Blood 12/30/2024 5:3 8 AM CDT 12/30/2024 5:55 AM CDT Isabela CRUZ LAB BLOOD ORDERABLES Fin al Result [facility] ([place]) 1 [facility] [place] [address] * (ABNORMAL) Renal function panel (12/30/2024 5:38 AM CDT) Sodium 138 135 - 145 mmol/L Potassium, pl 3.5 3.3 - 4.9 mmol/L [facility] ([place]) Chloride 113(H) 97 - 110 mmol/L [facility] ([place]) CO2 14(L) 22 - 32 mmol/L [facility] ([place]) Anion gap 11 2 - 15 mmol/L [facility] ([place]) BUN 26(H) 6 - 25 mg/dL [facility] ([place]) Creatinine 1.90(H) 0.80 - 1.30 mg/dL [facility] ([place]) Glucose 79 70 - 199 mg/dL [facility] ([place]) Comment: Interpretive Data Fasting glucose >/= 126 mg/dl is diagnostic for diabetes. Fasting is defined as no caloric intake for at least 8 hours. Fasting glucose between 100 mg/dl to 125 mg/dl is diagnostic of prediabetes. In a patient with classic symptoms of hyperglycemia or hyperglycemic crisis, a random glucose >/= 200 mg/dl is diagnostic for diabetes. In the absence of unequivocal hyperglycemia, results should be confirmed by repeat testing. The classification and Diagnosis of Diabetes Diabetes Care 2021; 46: S19-S40. Current interpretive data was last revised 2022. Calcium 7.8(L) 8.5 - 10.3 mg/dL [facility] Phosphorus, pl 2.3 2.3 - 4.5 mg/dL [facility] ([place]) Albumin 2.4(L) 3.5 - 5.0 g/dL [facility] Blood 12/30/2024 5:38 AM CDT 12/30/2024 9:35 AM CDT us Ted Browne MD LAB BLOOD ORDERABLES Final Re sult [facility] ([place]) 1 [facility] Department of Laboratories [place], [place] [id number] * (ABNORMAL) eGFR (12/29/2024 8:52 PM CDT) eGFR 37(L) >=60 mL/min/1. 73 m2 Comment: Interpretive Data Reference Interval Normal >/= 90 mL/min/1.73m2 Mildly decreased* 60 - 89 mL/min/1.73m2 Mildly to moderately decreased 45 - 59 mL/min/1.73m2 Moderately to severely decreased 30 - 44 mL/min/1.73m2 Severely decreased 15 - 29 mL/min/1.73m2 Kidney Failure < 15 mL/min/1.73m2 *Relative to young adult level Estimated glomerular filtration rate is determined by the 2020 CKD-EPI equation recommended by the National Kidney Foundation (A Unifying Approach to GFR Estimation: Recommendations of the NKF-ASK Task Force on Reassessing the Inclusion of Race in Diagnosing Kidney Disease, JASN 2020). The CKD-EPI equation should not be used for patients with unstable renal function and has not been validated in children and those over 70. Current interpretive data was last reviewed 2021. Blood 12/29/2024 8:52 PM CDT 12/29/2024 9:06 PM CDT us Ted Browne MD LAB BLOOD ORDERABLES Final Re sult [facility] ([place]) 1 [facility] Department [place] [address] * (ABNORMAL) Renal function panel (12/29/2024 8:52 PM CDT) Sodium 140 135 - 145 mmol/L Potassium, pl 3.8 3.3 - 4.9 mmol/L [facility] ([place]) Chloride 116(H) 97 - 110 mmol/L [facility] CO2 15(L) 22 - 32 mmol/L [facility] ([place]) Anion gap 10 2 - 15 mmol/L [facility] BUN 28(H) 6 - 25 mg/dL [facility] Creatinine 1.90(H) 0.80 - 1.30 mg/dL [facility] Glucose 98 70 - 199 mg/dL [facility] Comment: Interpretive Data Fasting glucose >/= 126 mg/dl is diagnostic for diabetes. Fasting is defined as no caloric intake for at least 8 hours. Fasting glucose between 100 mg/dl to 125 mg/dl is diagnostic of prediabetes. In a patient with classic symptoms of hyperglycemia or hyperglycemic crisis, a random glucose >/= 200 mg/dl is diagnostic for diabetes. In the absence of unequivocal hyperglycemia, results should be confirmed by repeat testing. The classification and Diagnosis of Diabetes Diabetes Care 202; 46: S19-S40. Current interpretive data was last revised 2022. Calcium 7.4(L) 8.5 - 10.3 mg/dL [facility] ([place]) Phosphorus, pl 2.1(L) 2.3 - 4.5 mg/dL [facility] ([place]) Albumin 2.3(L) 3.5 - 5.0 g/dL [facility] ([place]) Blood 12/29/2024 8:52 PM CDT 12/29/2024 9:06 PM CDT us Ted Browne MD LAB BLOOD ORDERABLES Final Re sult [facility]EN [facility] ([place]) 1 [facility] Department [place] [address] * (ABNORMAL) eGFR (12/29/2024 4:29 PM CDT) eGFR 37(L) >=60 mL/min/1. 73 m2 Comment: Interpretive Data Reference Interval Normal >/= 90 mL/min/1.73m2 Mildly decreased* 60 - 89 mL/min/1.73m2 Mildly to moderately decreased 45 - 59 mL/min/1.73m2 Moderately to severely decreased 30 - 44 mL/min/1.73m2 Severely decreased 15 - 29 mL/min/1.73m2 Kidney Failure < 15 mL/min/1.73m2 *Relative to young adult level Estimated glomerular filtration rate is determined by the 2020 CKD-EPI equation recommended by the National Kidney Foundation (A Unifying Approach to GFR Estimation: Recommendations of the NKF-ASK Task Force on Reassessing the Inclusion of Race in Diagnosing Kidney Disease, JASN 2020). The CKD-EPI equation should not be used for patients with unstable renal function and has not been validated in children and those over 70. Current interpretive data was last reviewed 2021. Blood 12/29/2024 4:29 PM CDT 12/29/2024 4:43 PM CDT us Ted Browne MD LAB BLOOD ORDERABLES Final Re sult Performing Organization Address [facility]/ZIP Co de Phone Number [facility] ([place]) 1 [facility] [place] [address] * Magnesium (12/29/2024 4:29 PM CDT) Magnesium 1.8 1.4 - 2.5 mg/dL Blood 12/29/2024 4:29 PM CDT 12/29/2024 4:43 PM CDT Narrative [facility] ([place]) - 12/29/2024 5:03 PM CDT Pt. has a line Ted Browne MD LAB BLOOD ORDERABLES Final Re sult Performing Organization Address [facility] Co de Phone Number [facility] ([place]) 1 [facility] [place] [address] * (ABNORMAL) Renal function panel (12/29/2024 4:29 PM CDT) Sodium 139 135 - 145 mmol/L Potassium, pl 3.8 3.3 - 4.9 mmol/L [facility] ([place]) Chloride 115(H) 97 - 110 mmol/L [facility] ([place]) CO2 14(L) 22 - 32 mmol/L [facility] ([place]) Anion gap 10 2 - 15 mmol/L [facility] ([place]) BUN 29(H) 6 - 25 mg/dL [facility] ([place]) Creatinine 1.93(H) 0.80 - 1.30 mg/dL [facility] ([place]) Glucose 96 70 - 199 mg/dL [facility] ([place]) Comment: Interpretive Data Fasting glucose >/= 126 mg/dl is diagnostic for diabetes. Fasting is defined as no caloric intake for at least 8 hours. Fasting glucose between 100 mg/dl to 125 mg/dl is diagnostic of prediabetes. In a patient with classic symptoms of hyperglycemia or hyperglycemic crisis, a random glucose >/= 200 mg/dl is diagnostic for diabetes. In the absence of unequivocal hyperglycemia, results should be confirmed by repeat testing. The classification and Diagnosis of Diabetes Diabetes Care 2021; 46: S19-S40. Current interpretive data was last revised 2022. Calcium 7.5(L) 8.5 - 10.3 mg/dL [facility] ([place]) Phosphorus, pl 2.1(L) 2.3 - 4.5 mg/dL [facility] ([place]) Albumin 2.4(L) 3.5 - 5.0 g/dL [facility] ([place]) Blood 12/29/2024 4:29 PM CDT 12/29/2024 4:43 PM CDT Narrative [facility] ([place]) - 12/29/2024 5:08 PM CDT Pt. has a line us Ted Browne MD LAB BLOOD ORDERABLES Final Re sult [facility] ([place]) 1 [facility] Department [place] [address] * CT KUB Stone WO Contrast (12/29/2024 9:28 AM CDT) Anatomical Region Laterality Modality Abdomen N/A Computed Tomogra phy 12/29/2024 9:56 AM CDT Narrative 12/29/2024 10:19 AM CDT EXAM DESCRIPTION: CT KUB STONE WO CONTRAST REASON FOR STUDY: Urolithiasis, symptomatic JAIR, urolithiasis, hydronephrosis TECHNIQUE: CT scan of the abdomen and pelvis performed without intravenous and without oral contrast using helical scanning technique. Reconstructed coronal and sagittal MPR images reviewed. All images stored on PACS. Automated exposure control was used as a dose optimization technique for this examination. COMPARISON: 12/27/2024, 08/14/2024 FINDINGS: The sensitivity for detection of visceral lesions is diminished without the use of intravenous contrast. LOWER CHEST: Trace pleural effusions. Dependent bilateral subsegmental atelectasis. LIVER: Normal size. Unremarkable for noncontrast technique. GALLBLADDER: Gallstones. The gallbladder is decompressed. No evidence of acute cholecystitis. BILE DUCTS: No intrahepatic or extrahepatic ductal dilatation. SPLEEN: Normal size. PANCREAS: Unremarkable for noncontrast technique. ADRENALS: Normal. KIDNEYS/URINARY TRACT: No renal calculi are identified. Interval resolution of hydroureteronephrosis. Mild bilateral perinephric fat stranding is nonspecific and likely a chronic finding. The urinary bladder is no longer significantly distended and the Greco catheter has been repositioned with the balloon now in the bladder. Urinary bladder is thick-walled which may indicate cystitis or be due to decompression. Air within the bladder is likely from Greco manipulation. GI: The distal esophagus and stomach are unremarkable. No bowel dilation. Left lower quadrant colostomy. The appendix is unremarkable. There is circumferential rectal wall thickening compatible with known malignancy. Partially visualized percutaneous drain terminates in the region of the left ischial rectal fossa. Mildly decreased presacral fat stranding relative to the prior exam. PERITONEUM: Mild ascites. No free air is identified. Multiple surgical clips near the colostomy. RETROPERITONEUM: No mass or adenopathy. REPRODUCTIVE: Prostate is enlarged. VASCULATURE: No abdominal aortic aneurysm. MUSCULOSKELETAL: Healing nondisplaced to mildly displaced fractures of the right lateral 8th 9th and 10th ribs. Healing nondisplaced fractures of the posterior right 11th and 12th ribs. No acute fractures identified. No suspicious osseous lesions. OTHER: Tiny ventral hernia located 5 cm medial relative to the colostomy. There is a small fluid and gas containing collection within the right medial gluteal fold measuring 1.1 cm with a possible fluid-filled tract to the gluteal cleft (series 2, image [id number]). IMPRESSION: 1. Interval repositioning of the Greco catheter with resolution of hydroureteronephrosis. No renal calculi or obstructive uropathy identified. 2. Bladder wall thickening may be due to cystitis or decompression. 3. Unchanged small fluid and gas containing collection within the right medial gluteal subcutaneous fat measuring 1.1 cm with a possible fluid-filled tract to the gluteal cleft (series 2 image [id number]). No significant surrounding inflammatory changes are identified. 4. Circumferential rectal wall thickening is unchanged from prior exam but substantially decreased relative to 08/14/2024. THIS IS AN ELECTRONICALLY VERIFIED FINAL REPORT 12/29/2024 10:19 AM - Electronically signed by Jalen Shabazz M.D. MM: MM Report ID: [id number] Reading Location: [id number] Procedure Note Jalen Shabazz MD - 12/29/2024 EXAM DESCRIPTION: CT KUB STONE WO CONTRAST REASON FOR STUDY: Urolithiasis, symptomatic JAIR, urolithiasis, hydronephrosis TECHNIQUE: CT scan of the abdomen and pelvis performed without intravenousand without oral contrast using helical scanning technique. Reconstructed coronal and sagittal MPR images reviewed. All images stored on PACS.Automated exposure control was used as a dose optimization technique for this examination. COMPARISON: 12/27/2024, 08/14/2024 FINDINGS: The sensitivity for detection of visceral lesions is diminished withoutthe use of intravenous contrast. LOWER CHEST: Trace pleural effusions. Dependent bilateral subsegmental atelectasis. LIVER: Normal size. Unremarkable for noncontrast technique. GALLBLADDER: Gallstones. The gallbladder is decompressed. No evidenceof acute cholecystitis. BILE DUCTS: No intrahepatic or extrahepatic ductal dilatation. SPLEEN: Normal size. PANCREAS: Unremarkable for noncontrast technique. ADRENALS: Normal. KIDNEYS/URINARY TRACT: No renal calculi are identified. Intervalresolution of hydroureteronephrosis. Mild bilateral perinephric fat stranding is nonspecific and likely a chronic finding. The urinary bladder is nolonger significantly distended and the Greco catheter has been repositioned withthe balloon now in the bladder. Urinary bladder is thick-walled which may indicate cystitis or be due to decompression. Air within the bladder is likely from Greco manipulation. GI: The distal esophagus and stomach are unremarkable. No boweldilation. Left lower quadrant colostomy. The appendix is unremarkable. There is circumferential rectal wall thickening compatible with known malignancy. Partially visualized percutaneous drain terminates in the region of theleft ischial rectal fossa. Mildly decreased presacral fat stranding relativeto the prior exam. PERITONEUM: Mild ascites. No free air is identified. Multiple surgical clips near the colostomy. RETROPERITONEUM: No mass or adenopathy. REPRODUCTIVE: Prostate is enlarged. VASCULATURE: No abdominal aortic aneurysm. MUSCULOSKELETAL: Healing nondisplaced to mildly displaced fractures ofthe right lateral 8th 9th and 10th ribs. Healing nondisplaced fractures of the posterior right 11th and 12th ribs. No acute fractures identified. No suspicious osseous lesions. OTHER: Tiny ventral hernia located 5 cm medial relative to the colostomy. There is a small fluid and gas containing collection within the rightmedial gluteal fold measuring 1.1 cm with a possible fluid-filled tract to the gluteal cleft (series 2, image [id number] -[id number]). IMPRESSION: 1. Interval repositioning of the Greco catheter with resolution of hydroureteronephrosis. No renal calculi or obstructive uropathyidentified. 2. Bladder wall thickening may be due to cystitis or decompression. 3. Unchanged small fluid and gas containing collection within the right medial gluteal subcutaneous fat measuring 1.1 cm with a possiblefluid-filled tract to the gluteal cleft (series 2 image [id number]). No significant surrounding inflammatory changes are identified. 4. Circumferential rectal wall thickening is unchanged from prior exambut substantially decreased relative to 08/14/2024. THIS IS AN ELECTRONICALLY VERIFIED FINAL REPORT 12/29/2024 10:19 AM - Electronically signed by Jalen Shabazz M.D. MM: MM Report ID: [id number] Reading Location: [place] [id number] Thanh Mathis MD IMG CT PROCEDURES Fi nal Result * (ABNORMAL) eGFR (12/29/2024 6:32 AM CDT) eGFR 33(L) >=60 mL/min/1. 73 m2 Comment: Interpretive Data Reference Interval Normal >/= 90 mL/min/1.73m2 Mildly decreased* 60 - 89 mL/min/1.73m2 Mildly to moderately decreased 45 - 59 mL/min/1.73m2 Moderately to severely decreased 30 - 44 mL/min/1.73m2 Severely decreased 15 - 29 mL/min/1.73m2 Kidney Failure < 15 mL/min/1.73m2 *Relative to young adult level Estimated glomerular filtration rate is determined by the 2020 CKD-EPI equation recommended by the National Kidney Foundation (A Unifying Approach to GFR Estimation: Recommendations of the NKF-ASK Task Force on Reassessing the Inclusion of Race in Diagnosing Kidney Disease, ROBERTSN 2020). The CKD-EPI equation should not be used for patients with unstable renal function and has not been validated in children and those over 70. Current interpretive data was last reviewed 2021. Blood 12/29/2024 6:32 AM CDT 12/29/2024 6:39 AM CDT Juancho Conrad MD LAB BLOOD ORDERABLES Final Result [facility] ([place]) 1 [facility] Department [place] [address] * (ABNORMAL) Differential, auto (12/29/2024 6:32 AM CDT) Neutrophil abs 7.87(H) 1.50 - 6.50 K/cumm Imm gran abs 0.08 0.00 - 0.10 K/cumm [facility] ([place]) Lymphocyte abs 0.30(L) 0.80 - 3.30 K/cumm [facility] ([place]) Monocyte abs 0.51 0.20 - 0.80 K/cumm [facility] ([place]) Eosinophil abs 0.09 0.00 - 0.50 K/cumm [facility] ([place]) Basophil abs 0.03 0.00 - 0.10 K/cumm [facility] ([place]) Neutrophil pct 88.7 % [facility] ([place]) Comment: Interpretive Data Percent cell count reference ranges are not reported, since discordance with absolute values may lead to misinterpretation of CBC data. Current Interpretive Data was last revised on 2017. Imm gran pct 0.9 % [facility] ([place]) Comment: Interpretive Data Percent cell count reference ranges are not reported, since discordance with absolute values may lead to misinterpretation of CBC data. Current Interpretive Data was last revised on 2017. Lymphocyte pct 3.4 % [facility] ([place]) Comment: Interpretive Data Percent cell count reference ranges are not reported, since discordance with absolute values may lead to misinterpretation of CBC data. Current Interpretive Data was last revised on 2017. Monocyte pct 5.7 % [facility] ([place]) Comment: Interpretive Data Percent cell count reference ranges are not reported, since discordance with absolute values may lead to misinterpretation of CBC data. Current Interpretive Data was last revised on 2017. Eosinophil pct 1.0 % [facility] ([place]) Comment: Interpretive Data Percent cell count reference ranges are not reported, since discordance with absolute values may lead to misinterpretation of CBC data. Current Interpretive Data was last revised on 2017. Basophil pct 0.3 % [facility] ([place]) Comment: Interpretive Data Percent cell count reference ranges are not reported, since discordance with absolute values may lead to misinterpretation of CBC data. Current Interpretive Data was last revised on 2017. Blood 12/29/2024 6:32 AM CDT 12/29/2024 6:39 AM CDT Juancho Conrad MD LAB BLOOD ORDERABLES Final Result [facility] ([place]) 1 [facility] Department [place] [address] * (ABNORMAL) CBC with auto differential (12/29/2024 6:32 AM CDT) WBC 8.88 3.80 - 9.90 K/cumm Hgb 7.7(L) 13.0 - 17.5 g/dL [facility] ([place]) Hct 25.2(L) 38.9 - 50.3 % [facility] ([place]) Plt 189 150 - 400 K/cumm [facility] ([place]) MPV 11.1 9.1 - 12.3 fL [facility] ([place]) RBC 2.59(L) 4.30 - 5.80 M/cumm [facility] ([place]) MCV 97.3(H) 81.3 - 96.4 fL [facility] ([place]) MCH 29.7 27.1 - 33.3 pg [facility] ([place]) MCHC 30.6(L) 32.3 - 35.7 g/dL [facility] ([place]) RDW CV 17.8(H) 11.1 - 14.9 % [facility] ([place]) RDW SD 62.6(H) 35.7 - 48.1 fL [facility] ([place]) NRBC abs 0.00 0.00 - 0.01 K/cumm [facility] ([place]) Blood 12/29/2024 6:32 AM CDT 12/29/2024 6:39 AM CDT Juancho Conrad MD LAB BLOOD ORDERABLES Final Result [facility] ([place]) 1 [facility] Department [place] [address] * (ABNORMAL) Comprehensive metabolic panel (12/29/2024 6:32 AM CDT) Sodium 147(H) 135 - 145 mmol/L Potassium, pl 3.1(L) 3.3 - 4.9 mmol/L [facility] Chloride 120(H) 97 - 110 mmol/L [facility] CO2 16(L) 22 - 32 mmol/L [facility] Anion gap 11 2 - 15 mmol/L [facility] BUN 33(H) 6 - 25 mg/dL [facility] Creatinine 2.12(H) 0.80 - 1.30 mg/dL [facility] Glucose 110 70 - 199 mg/dL [facility] ([place]) Comment: Interpretive Data Fasting glucose >/= 126 mg/dl is diagnostic for diabetes. Fasting is defined as no caloric intake for at least 8 hours. Fasting glucose between 100 mg/dl to 125 mg/dl is diagnostic of prediabetes. In a patient with classic symptoms of hyperglycemia or hyperglycemic crisis, a random glucose >/= 200 mg/dl is diagnostic for diabetes. In the absence of unequivocal hyperglycemia, results should be confirmed by repeat testing. The classification and Diagnosis of Diabetes Diabetes Care 202; 46: S19-S40. Current interpretive data was last revised 2022. Calcium 7.7(L) 8.5 - 10.3 mg/dL [facility] ([place]) Bilirubin, total 0.2 0.1 - 1.2 mg/dL [facility] ([place]) Protein, pl 5.6(L) 6.5 - 8.5 g/dL [facility] ([place]) Albumin 2.2(L) 3.5 - 5.0 g/dL [facility] ([place]) Alk phos 49 40 - 130 Units/L [facility] ([place]) ALT 8 7 - 55 Units/L [facility] ([place]) AST 10 10 - 50 Units/L [facility] ([place]) Blood 12/29/2024 6:32 AM CDT 12/29/2024 6:39 AM CDT us Juancho Conrad MD LAB BLOOD ORDERABLES Final Result [facility] ([place]) [address] [place] [address] Department [place] [address] * Surgical pathology (12/28/2024 2:03 PM CDT) Tissue (Duodenum, Biopsy) 12/28/2024 11:17 AM CDT Tissue specimen (specimen) (Gastric/Stomach biopsy) 12/28/2024 11:20 AM CDT Tissue specimen (specimen) (Gastric/Stomach biopsy) 12/28/2024 11:22 AM CDT Tissue specimen (specimen) (Esophageal biopsy) 12/28/2024 11:24 AM CDT Narrative PATHOLOGY [facility] ([place]) - 12/29/2024 2:29 PM CDT EPIC results best viewed via link to PDF [facility] Department of Pathology [address] [place] [id number] Note to Patients: This report may contain a detailed description of human tissue sent by a health care provider to the laboratory for pathologic evaluation. The content of this report is essential for diagnosis and may provide important critical findings. This information may be unfamiliar to patients to review without a medical professional present. It is advised that the patient review this report in the presence of a health care provider who can answer questions and explain the details. Final Report with Addendum Patient Name: THOMAS CONROY JR. Address: [address] [place] [address], [place] [address] Gender: M : 1955 (Age: 69) Service: Medical Location: [facility] Hospital #: [id number] Patient Type: [facility] Taken: 12/28/2024 Received: 12/28/2024 Accessioned: 12/28/2024 Reported: 12/29/2024 Physician(s):Donna Kong MD Diagnosis: A. Duodenum, endoscopic biopsy- No significant histopathologic abnormality B. Stomach, antrum biopsy- Mild chronic inactive gastritis Features suggestive of mild reactive gastropathy C. Stomach, gastric body, endoscopic biopsy- Benign fundic type gastric mucosa demonstrating mild reactive/erosive gastropathy D. Distal esophagus, endoscopic biopsy- Fragments of benign squamous and cardiac type gastric mucosa demonstrating mild chronic inflammation and reactive change Detached fragments of ulcer material/necroinflammatory debris PAS stain pending for Riki/fungal organisms IHC stains pending for CMV and HSV Liz Che M.D. Report Electronically Reviewed and Signed Out By Liz Che M.D. 12/29/2024 14:29:24 Procedure/Addenda: Addendum Addendum Comment CMV, HSV 1/2 and PAS stains with appropriate controls also reviewed are performed on distal esophageal biopsy material. Results are negative. The diagnosis remains unchanged. Liz Che M.D.Report Electronically Reviewed and Signed Out By Liz Che M.D. 01/03/2025 14:48:04 Specimen(s) Received: A: Duodenum biopsies B: Gastric antrum biopsies C: Gastric body biopsies D: Distal esophageal biopsies Microscopic Description: Microscopic examination corroborates the diagnosis. Clinical History: Coffee ground emesis. EGD. Gross Description: The specimen is submitted in four containers labeled THOMAS CONROY. A. The first container is labeled duodenum. It is 3 caballero tissue fragments between 1 and 3 mm. All in A. B. The second container is labeled gastric antrum. It is 3 caballero tissue fragments measuring 2 mm. All in B. C. The third container is labeled gastric body. It is one caballero tissue fragment measuring 2 mm. All in C. D. The fourth container is labeled distal esophageal. It is one caballero tissue fragment measuring 2 mm. All in D. T.A. Martina Chou P.A./Liz Che M.D. REPORT IMAGES AND SCANNED DOCUMENTS, IF INCLUDED, ONLY VIEWABLE IN PDF VERSION OF REPORT The performance characteristics of some immunohistochemical stains, fluorescence in-situ hybridization tests and immunophenotyping by flow cytometry cited in this report (if any) were determined by the Surgical Pathology Department at [facility] as part of an ongoing quality assurance auditor program and in compliance with federally mandated regulations drawn from the Clinical Laboratory Improvement Act of 1988 (CLIA '88). Some of these tests rely on the use of analyte specific reagents and are subject to specific labeling requirements by the US Food and Drug Administration. Such diagnostic tests may only be performed in a facility that is certified by the Department of Health and Human Services as a high complexity laboratory under CLIA '88. The FDA has determined that such clearance or approval is not necessary. This test is used for clinical purposes. It should not be regarded as investigational or for research. Nevertheless, federal rules concerning the medical use of analyte specific reagents require that the following disclaimer be attached to the report: This test was developed and its performance characteristics determined by the Surgical Pathology Department [facility]. It has not been cleared or approved by the U. S. Food and Drug Administration. Note for decalcified specimens: This assay has not been validated on decalcified tissues. Results should be interpreted with caution given the possibility of false negativity on decalcified specimens Donna Kong MD LAB PATHOLOGY ORDERABLES Final R esult Performing Organization Address City/State/[facility] Co de Phone Number PATHOLOGY [facility] [address] [place] [phone] * EGD (12/28/2024 10:49 AM CDT) Anatomical Region Laterality Modality Other Narrative Procedure Note Donna Kong MD - 12/28/2024 10:49 AM CDT [facility] Patient Name: Thomas Conroy Procedure Date: 12/28/2024 10:49 AM Date of : 1955 Admit Type: Inpatient Age: 69 Gender: Male Attending MD: Donna Kong M.D. Room: [facility] ENDOSCOPY ROOM 2 Note Status: Finalized Patient Profile: This is a 69 year old male hx of anal cancer s/p chemoradiation, diverting loop colostomy presentedto the hospital with concerns of coffee ground emesis. Patient is poor historian. He states that he hasnot vomited for 2 day. No nausea, vomiting, heartburn, reflux or abdominal pain.Hgb 8.4 on admission, baseline anywhere between 9-11. Procedure: Upper GI endoscopy Indications: Coffee-ground emesis Referring MD: Olvin Montgomery M.D. Providers: Donna Kong M.D. Impression: - LA Grade C esophagitis with no bleeding.Biopsied. - White plaques in the distal esophagus suspiciousfor riki. Biopsied. - Congestive gastropathy. Biopsied. - Erythematous mucosa in the antrum. Biopsied. - Duodenal erosions without bleeding. Biopsied. Recommendation: - [facility]. - GI soft diet. - No ibuprofen, naproxen, or other non-steroidal anti-inflammatory drugs. - Continue present medications with PPI BID for 3 months then decrease to once daily. - Await pathology results. - Repeat upper endoscopy in 3 months to checkhealing of esophagitis. Medicines: Monitored Anesthesia Care Complications: No immediate complications. Estimated Blood Loss: Estimated blood loss was minimal. Procedure: Pre-Anesthesia Assessment: - Prior to the procedure, a History and Physicalwas performed, and patient medications and allergieswere reviewed. The patient is competent. The risks and benefits of the procedure and the sedation optionsand risks were discussed with the patient. Allquestions were answered and informed consent was obtained. Patient identification and proposed procedure were verified by the physician, the saw maker and the windmill technician in the endoscopy suite. Mental Status Examination: normal. Prophylactic Antibiotics: The patient does not require prophylactic antibiotics. Prior Anticoagulants: The patient has taken no anticoagulant or antiplatelet agents. Afterreviewing the risks and benefits, the patient was deemed in satisfactory condition to undergo the procedure.The anesthesia plan was to use monitored anesthesiacare (MAC). Immediately prior to administration of medications, the patient was re-assessed foradequacy to receive sedatives. The heart rate, respiratory rate, oxygen saturations, blood pressure, adequacyof pulmonary ventilation, and response to care were monitored throughout the procedure. The physical status of the patient was re-assessed after the procedure. The benefits, risks, and alternatives to theprocedure and sedation were discussed and informed consentwas obtained. The scope was passed under direct vision. The Endoscope [id number] was introduced through the mouth, and advanced to the second partof duodenum. The upper GI endoscopy was accomplished without difficulty. The patient tolerated the procedure well. Findings: LA Grade C (one or more mucosal breaks continuous between tops of 2or more mucosal folds, less than 75% circumference) esophagitis with no bleeding was found in the distal esophagus. Biopsies were taken witha cold forceps for histology. White plaques were found in the distal esophagus. Biopsies were taken with a cold forceps for histology. Diffuse moderately congested mucosa was found in the gastric body. Biopsies were taken with a cold forceps for Helicobacter pyloritesting. Mildly erythematous mucosa without bleeding was found in the gastric antrum. Biopsies were taken with a cold forceps for Helicobacterpylori testing. A few erosions without bleeding were found in the duodenal bulb. Biopsies were taken with a cold forceps for histology. Donna Kong M.D. 12/28/2024 12:28:02 PM Number of Addenda: 0 Note Initiated On: 12/28/2024 10:49 AM Procedure Code(s): --- Professional --- 05388, Esophagogastroduodenoscopy, flexible, transoral; with biopsy, single or multiple --- Technical --- 43003, Esophagogastroduodenoscopy, flexible, transoral; with biopsy, single or multiple Diagnosis Code(s): --- Professional --- K20.90, Esophagitis, unspecified without bleeding K22.89, Other specified disease of esophagus K31.89, Other diseases of stomach and duodenum K26.9, Duodenal ulcer, unspecified as acute or chronic, without hemorrhage or perforation K92.0, Hematemesis --- Technical --- K20.90, Esophagitis, unspecified without bleeding K22.89, Other specified disease of esophagus K31.89, Other diseases of stomach and duodenum K26.9, Duodenal ulcer, unspecified as acute or chronic, without hemorrhage or perforation K92.0, Hematemesis CPT copyright 2020 [employer]. All rights reserved. The codes documented in this report are preliminary and upon aix administrator reviewmay be revised to meet current compliance requirements. Recognized by the [employer] for promoting quality in endoscopy us Donna Kong MD ENDOSCOPY PROCEDURES Final Resul t * US Kidney Complete (12/28/2024 8:33 AM CDT) Anatomical Region Laterality Modality Kidney N/A Ultrasound 12/28/2024 8:54 AM CDT Narrative 12/28/2024 8:58 AM CDT EXAM DESCRIPTION: US KIDNEY COMPLETE REASON FOR STUDY: JAIR TECHNIQUE: Ultrasound of the kidneys and urinary bladder was performed with grayscale imaging. COMPARISON: CT abdomen and pelvis 12/27/2024 FINDINGS: RIGHT KIDNEY: The right kidney measures 11.6 cm in length. No renal calculi. Mild right hydronephrosis. There is normal cortical thickness and echogenicity. LEFT KIDNEY: The left kidney measures 11.0 cm in length. No renal calculi. There is no hydronephrosis. There is normal cortical thickness and echogenicity. URINARY BLADDER: The urinary bladder is decompressed, with a Greco catheter in place. OTHER: No other additional findings. IMPRESSION: 1. Mild right hydronephrosis. 2. The urinary bladder is decompressed with a Greco catheter in place. THIS IS AN ELECTRONICALLY VERIFIED FINAL REPORT 12/28/2024 8:58 AM - Electronically signed by Ilir Aguilar M.D. KR: PATITO Report ID: [id number] Reading Location: [place] [address] Procedure Note Ilir Aguilar MD - 12/28/2024 EXAM DESCRIPTION: US KIDNEY COMPLETE REASON FOR STUDY: JAIR TECHNIQUE: Ultrasound of the kidneys and urinary bladder was performedwith grayscale imaging. COMPARISON: CT abdomen and pelvis 12/27/2024 FINDINGS: RIGHT KIDNEY: The right kidney measures 11.6 cm in length. No renalcalculi. Mild right hydronephrosis. There is normal cortical thickness and echogenicity. LEFT KIDNEY: The left kidney measures 11.0 cm in length. No renalcalculi. There is no hydronephrosis. There is normal cortical thickness and echogenicity. URINARY BLADDER: The urinary bladder is decompressed, with a Foleycatheter in place. OTHER: No other additional findings. IMPRESSION: 1. Mild right hydronephrosis. 2. The urinary bladder is decompressed with a Greco catheter in place. THIS IS AN ELECTRONICALLY VERIFIED FINAL REPORT 12/28/2024 8:58 AM - Electronically signed by Ilir Aguilar M.D. KR: PATITO Report ID: [id number] Reading Location: [id number] us Eduard Haney MD [facility] US PROCEDURES Final Result * (ABNORMAL) eGFR (12/28/2024 5:58 AM CDT) eGFR 28(L) >=60 mL/min/1. 73 m2 Comment: Interpretive Data Reference Interval Normal >/= 90 mL/min/1.73m2 Mildly decreased* 60 - 89 mL/min/1.73m2 Mildly to moderately decreased 45 - 59 mL/min/1.73m2 Moderately to severely decreased 30 - 44 mL/min/1.73m2 Severely decreased 15 - 29 mL/min/1.73m2 Kidney Failure < 15 mL/min/1.73m2 *Relative to young adult level Estimated glomerular filtration rate is determined by the 2020 CKD-EPI equation recommended by the National Kidney Foundation (A Unifying Approach to GFR Estimation: Recommendations of the NKF-ASK Task Force on Reassessing the Inclusion of Race in Diagnosing Kidney Disease, JASN 202). The CKD-EPI equation should not be used for patients with unstable renal function and has not been validated in children and those over 70. Current interpretive data was last reviewed 2021. Blood 12/28/2024 5:58 AM CDT 12/28/2024 6:02 AM CDT us Juancho Conrad MD LAB BLOOD ORDERABLES Final Result [facility] ([place]) 1 [facility] Department [place] [address] * (ABNORMAL) Differential, auto (12/28/2024 5:58 AM CDT) Neutrophil abs 13.24(H) 1.50 - 6.50 K/cumm Imm gran abs 0.22(H) 0.00 - 0.10 K/cumm [facility] ([place]) Lymphocyte abs 0.19(L) 0.80 - 3.30 K/cumm [facility] ([place]) Monocyte abs 0.63 0.20 - 0.80 K/cumm [facility] ([place]) Eosinophil abs 0.01 0.00 - 0.50 K/cumm [facility] ([place]) Basophil abs 0.02 0.00 - 0.10 K/cumm [facility] ([place]) Neutrophil pct 92.6 % [facility] ([place]) Comment: Interpretive Data Percent cell count reference ranges are not reported, since discordance with absolute values may lead to misinterpretation of CBC data. Current Interpretive Data was last revised on 2017. Imm gran pct 1.5 % [facility] ([place]) Comment: Interpretive Data Percent cell count reference ranges are not reported, since discordance with absolute values may lead to misinterpretation of CBC data. Current Interpretive Data was last revised on 2017. Lymphocyte pct 1.3 % [facility] ([place]) Comment: Interpretive Data Percent cell count reference ranges are not reported, since discordance with absolute values may lead to misinterpretation of CBC data. Current Interpretive Data was last revised on 2017. Monocyte pct 4.4 % [facility] ([place]) Comment: Interpretive Data Percent cell count reference ranges are not reported, since discordance with absolute values may lead to misinterpretation of CBC data. Current Interpretive Data was last revised on 2017. Eosinophil pct 0.1 % [facility] ([place]) Comment: Interpretive Data Percent cell count reference ranges are not reported, since discordance with absolute values may lead to misinterpretation of CBC data. Current Interpretive Data was last revised on 2017. Basophil pct 0.1 % [facility] ([place]) Comment: Interpretive Data Percent cell count reference ranges are not reported, since discordance with absolute values may lead to misinterpretation of CBC data. Current Interpretive Data was last revised on 2017. Blood 12/28/2024 5:58 AM CDT 12/28/2024 6:02 AM CDT us Juancho Conrad MD LAB BLOOD ORDERABLES Final Result [facility] ([place]) 1 [facility] Department [place] [address] * (ABNORMAL) CBC with auto differential (12/28/2024 5:58 AM CDT) WBC 14.31(H) 3.80 - 9.90 K/cumm Hgb 8.4(L) 13.0 - 17.5 g/dL [facility] ([place]) Hct 27.0(L) 38.9 - 50.3 % [facility] ([place]) Plt 209 150 - 400 K/cumm [facility] ([place]) MPV 11.5 9.1 - 12.3 fL [facility] ([place]) RBC 2.79(L) 4.30 - 5.80 M/cumm [facility] ([place]) MCV 96.8(H) 81.3 - 96.4 fL [facility] ([place]) MCH 30.1 27.1 - 33.3 pg [facility] ([place]) MCHC 31.1(L) 32.3 - 35.7 g/dL [facility] ([place]) RDW CV 17.8(H) 11.1 - 14.9 % [facility] ([place]) RDW SD 62.6(H) 35.7 - 48.1 fL [facility] ([place]) NRBC abs 0.00 0.00 - 0.01 K/cumm [facility] ([place]) Blood 12/28/2024 5:58 AM CDT 12/28/2024 6:02 AM CDT Juancho Conrad MD LAB BLOOD ORDERABLES Final Result [facility] ([place]) 1 [facility] Department [place] [address] * Blood culture Blood (12/28/2024 5:58 AM CDT) Report Final Report: No growth Comment:Testing performed by : [facility], [address] [facility] [address] Blood 12/28/2024 5:58 AM CDT 12/28/2024 8:34 AM CDT Narrative [facility] ([place]) - 01/01/2025 12:00 PM CDT From a different site than #1. Collection->Peripheral 1. Blood cultures are incubated for 4 days on a continuously monitored blood culture system. The first report of a negative culture is issued within 24 hours of receipt of the specimen in the laboratory. 2. Positive culture results are reported as soon as they are detected. 3. The most important factor for detection of microbes in the setting of bloodstream infection is the volume of blood submitted for culture. Failure to collect an optimal blood volume can result in false negative blood cultures. 4. For pediatric patients, the recommended blood volume to collect follows a weight based strategy. See the electronic test catalog for collection instructions. 5. For positive blood cultures, a rapid molecular test may be performed for organism identification using the jay ePlex blood culture identification panel for gram positive (BCID-GP) and gram negative (BCID-GN) organisms. This nucleic acid amplification test detects microbial DNA in positive blood culture broth. This assay has been cleared by the [place] Food and Drug Administration and its performance characteristics have been verified by the [facility] Microbiology Laboratory. For questions about this culture, contact the Microbiology Laboratory at [phone]. Interpretive data was last revised on 24. us Eduard Haney MD LAB MICROBIOLOGY - GENERAL [place]NA [place]WITT Final Result [facility] ([place]) 1 [facility] Department [place] [address] * (ABNORMAL) Comprehensive metabolic panel (12/28/2024 5:58 AM CDT) Sodium 149(H) 135 - 145 mmol/L Potassium, pl 4.0 3.3 - 4.9 mmol/L [facility] ([place]) Chloride 117(H) 97 - 110 mmol/L [facility] ([place]) CO2 14(L) 22 - 32 mmol/L [facility] ([place]) Anion gap 18(H) 2 - 15 mmol/L [facility] ([place]) BUN 40(H) 6 - 25 mg/dL [facility] ([place]) Creatinine 2.43(H) 0.80 - 1.30 mg/dL [facility] ([place]) Glucose 169 70 - 199 mg/dL [facility] ([place]) Comment: Interpretive Data Fasting glucose >/= 126 mg/dl is diagnostic for diabetes. Fasting is defined as no caloric intake for at least 8 hours. Fasting glucose between 100 mg/dl to 125 mg/dl is diagnostic of prediabetes. In a patient with classic symptoms of hyperglycemia or hyperglycemic crisis, a random glucose >/= 200 mg/dl is diagnostic for diabetes. In the absence of unequivocal hyperglycemia, results should be confirmed by repeat testing. The classification and Diagnosis of Diabetes Diabetes Care 2021; 46: S19-S40. Current interpretive data was last revised 2022. Calcium 8.3(L) 8.5 - 10.3 mg/dL [facility] ([place]) Bilirubin, total 0.2 0.1 - 1.2 mg/dL [facility] ([place]) Protein, pl 6.4(L) 6.5 - 8.5 g/dL [facility] ([place]) Albumin 2.5(L) 3.5 - 5.0 g/dL [facility] ([place]) Alk phos 60 40 - 130 Units/L [facility] ([place]) ALT 10 7 - 55 Units/L [facility] ([place]) AST 11 10 - 50 Units/L [facility] ([place]) Blood 12/28/2024 5:58 AM CDT 12/28/2024 6:02 AM CDT Juancho Conrad MD LAB BLOOD ORDERABLES Final Result [facility] ([place]) 1 [facility] Department [place] [address] * Blood culture Blood (12/28/2024 5:57 AM CDT) Report Final Report: No growth Comment:Testing performed by : [facility], [address] [facility] [address] Blood 12/28/2024 5:57 AM CDT 12/28/2024 8:34 AM CDT [facility]ative [facility] - 01/01/2025 12:00 PM CDT Collection->Peripheral 1. Blood cultures are incubated for 4 days on a continuously monitored blood culture system. The first report of a negative culture is issued within 24 hours of receipt of the specimen in the laboratory. 2. Positive culture results are reported as soon as they are detected. 3. The most important factor for detection of microbes in the setting of bloodstream infection is the volume of blood submitted for culture. Failure to collect an optimal blood volume can result in false negative blood cultures. 4. For pediatric patients, the recommended blood volume to collect follows a weight based strategy. See the electronic test catalog for collection instructions. 5. For positive blood cultures, a rapid molecular test may be performed for organism identification using the jay ePlex blood culture identification panel for gram positive (BCID-GP) and gram negative (BCID-GN) organisms. This nucleic acid amplification test detects microbial DNA in positive blood culture broth. This assay has been cleared by the [place] Food and Drug Administration and its performance characteristics have been verified by the [facility]biology [facility]. For questions about this culture, contact the Microbiology Laboratory at [phone]. Interpretive data was last revised on 24. us Eduard Haney MD LAB MICROBIOLOGY - GENERAL [facility] Final Result Performing Organization Address City/[facility]/ZIP Co de Phone Number HELEN AVITIA ([place]) 1 [facility] [place] [address] * (ABNORMAL) Hemoglobin and hematocrit (12/28/2024 1:19 AM CDT) Hgb 8.3(L) 13.0 - 17.5 g/dL Hct 25.9(L) 38.9 - 50.3 % HELEN AVITIA ([place]) Blood 12/28/2024 1:19 AM CDT 12/28/2024 1:19 AM CDT us Floyd Vital MD LAB BLOOD ORDERABLES Fi nal Result Performing Organization Address City/[facility]/ZIP Co de Phone Number HELEN AVITIA ([place]) 1 [facility] [place] [address] * Transfuse RBC (12/28/2024 12:28 AM CDT) Blood us Juancho Conrad MD BLOOD TRANSFUSION ORDERABLE S Final Result Performing Organization Address City/[facility]/ZIP Co de Phone Number HELEN AVITIA ([place]) 1 [facility] [place] [address] * Prepare RBC: 1 Units (12/27/2024 7:03 PM CDT) Units requested 1 Units requested Ready HELEN AVITIA ([place]) Unit Number [id number] Product code [id number] HELEN AVITIA ([place]) Blood Expiration Date [id number] [facility] ([place]) Product Blood Type (for scanning) 5100 [facility] ([place]) Product Blood Type OPOS [facility] ([place]) Dispense Status DISPENSED HELEN AVITIA ([place]) Blood 12/27/2024 7:03 PM CDT 12/27/2024 7:03 PM CDT us Juancho Conrad MD BLOOD BANK PRODUCT ORDERABL ES Final Result HELEN AVITIA ([place]) 1 [facility] Department [place] [address] * CT Chest WO Contrast (12/27/2024 6:13 PM CDT) Anatomical Region Laterality Modality Body N/A Computed Tomogra phy 12/27/2024 6:16 PM CDT Narrative 12/27/2024 6:20 PM CDT EXAM DESCRIPTION: CT CHEST WO CONTRAST REASON FOR STUDY: Hemoptysis Coffee ground emesis since last night. Hx of anal cancer TECHNIQUE: CT scan of the chest performed without intravenous contrast using helical scanning technique. Reconstructed coronal and sagittal MPR images reviewed. All images stored on PACS. Automated exposure control was used as a dose optimization technique for this examination. COMPARISON: CT chest 08/12/2024 REFERENCE: Per ACR white paper recommendations, unless otherwise specified no follow-up imaging is recommended for incidental renal and adrenal lesions per consensus recommendations based on imaging criteria. Further lab evaluation could be pursued based on clinical findings. FINDINGS: The sensitivity for detection of solid visceral lesions is diminished without the use of intravenous contrast. HEART: Normal size without pericardial effusion. CORONARY ARTERY CALCIFICATION: None visualized. MEDIASTINUM/YAN: No abnormal lymph nodes by size criteria. No thoracic aortic aneurysm. LUNGS/PLEURA: Mild centrilobular pulmonary emphysema. Trace pleural effusions and dependent atelectasis. No focal airspace consolidation. No pneumothorax. UPPER ABDOMEN: No acute findings. MUSCULOSKELETAL: No acute findings. Old right rib fractures. OTHER: Left chest wall port with the tip in the superior vena cava. IMPRESSION: 1. Trace pleural effusions and dependent atelectasis. 2. Mild pulmonary emphysema. THIS IS AN ELECTRONICALLY VERIFIED FINAL REPORT 12/27/2024 6:20 PM - Electronically signed by Lion Hernandez M.D., JR: Report ID: [id number] Reading Location: [place] [address] Procedure Note Lion Hernandez MD - 12/27/2024 EXAM DESCRIPTION: CT CHEST WO CONTRAST REASON FOR STUDY: Hemoptysis Coffee ground emesis since last night. Hx of anal cancer TECHNIQUE: CT scan of the chest performed without intravenous contrastusing helical scanning technique. Reconstructed coronal and sagittal MPR images reviewed. All images stored on PACS. Automated exposure control was usedas a dose optimization technique for this examination. COMPARISON: CT chest 08/12/2024 REFERENCE: Per ACR white paper recommendations, unless otherwise specifiedno follow-up imaging is recommended for incidental renal and adrenal lesionsper consensus recommendations based on imaging criteria. Further labevaluation could be pursued based on clinical findings. FINDINGS: The sensitivity for detection of solid visceral lesions is diminishedwithout the use of intravenous contrast. HEART: Normal size without pericardial effusion. CORONARY ARTERY CALCIFICATION: None visualized. MEDIASTINUM/YAN: No abnormal lymph nodes by size criteria. No thoracic aortic aneurysm. LUNGS/PLEURA: Mild centrilobular pulmonary emphysema. Trace pleural effusions and dependent atelectasis. No focal airspace consolidation. No pneumothorax. UPPER ABDOMEN: No acute findings. MUSCULOSKELETAL: No acute findings. Old right rib fractures. OTHER: Left chest wall port with the tip in the superior vena cava. IMPRESSION: 1. Trace pleural effusions and dependent atelectasis. 2. Mild pulmonary emphysema. THIS IS AN ELECTRONICALLY VERIFIED FINAL REPORT 12/27/2024 6:20 PM - Electronically signed by Lion Hernandez M.D., JR: Report ID: [id number] Reading Location: [place] [address] us Juancho Conrad MD IMG CT PROCEDURES Final Res ult * (ABNORMAL) eGFR (12/27/2024 5:03 PM CDT) Pathologist [facility] eGFR 26(L) >=60 mL/min/1. 73 m2 Comment: Interpretive Data Reference Interval Normal >/= 90 mL/min/1.73m2 Mildly decreased* 60 - 89 mL/min/1.73m2 Mildly to moderately decreased 45 - 59 mL/min/1.73m2 Moderately to severely decreased 30 - 44 mL/min/1.73m2 Severely decreased 15 - 29 mL/min/1.73m2 Kidney Failure < 15 mL/min/1.73m2 *Relative to young adult level Estimated glomerular filtration rate is determined by the 2020 CKD-EPI equation recommended by the National Kidney Foundation (A Unifying Approach to GFR Estimation: Recommendations of the NKF-ASK Task Force on Reassessing the Inclusion of Race in Diagnosing Kidney Disease, JASN 2020). The CKD-EPI equation should not be used for patients with unstable renal function and has not been validated in children and those over 70. Current interpretive data was last reviewed 2021. Blood 12/27/2024 5:03 PM CDT 12/27/2024 5:06 PM CDT us Juancho Conrad MD LAB BLOOD ORDERABLES Final Result HELEN [facility] ([place]) 1 [facility] Department of Laboratories [place], [place] [id number] * (ABNORMAL) Differential, auto (12/27/2024 5:03 PM CDT) Neutrophil abs 16.03(H) 1.50 - 6.50 K/cumm Imm gran abs 0.21(H) 0.00 - 0.10 K/cumm [facility] ([place]) Lymphocyte abs 0.24(L) 0.80 - 3.30 K/cumm [facility] ([place]) Monocyte abs 0.72 0.20 - 0.80 K/cumm [facility] ([place]) Eosinophil abs 0.01 0.00 - 0.50 K/cumm [facility] ([place]) Basophil abs 0.02 0.00 - 0.10 K/cumm [facility] ([place]) Neutrophil pct 93.0 % [facility] ([place]) Comment: Interpretive Data Percent cell count reference ranges are not reported, since discordance with absolute values may lead to misinterpretation of CBC data. Current Interpretive Data was last revised on 2017. Imm gran pct 1.2 % [facility] ([place]) Comment: Interpretive Data Percent cell count reference ranges are not reported, since discordance with absolute values may lead to misinterpretation of CBC data. Current Interpretive Data was last revised on 2017. Lymphocyte pct 1.4 % [facility] ([place]) Comment: Interpretive Data Percent cell count reference ranges are not reported, since discordance with absolute values may lead to misinterpretation of CBC data. Current Interpretive Data was last revised on 2017. Monocyte pct 4.2 % [facility] ([place]) Comment: Interpretive Data Percent cell count reference ranges are not reported, since discordance with absolute values may lead to misinterpretation of CBC data. Current Interpretive Data was last revised on 2017. Eosinophil pct 0.1 % [facility] ([place]) Comment: Interpretive Data Percent cell count reference ranges are not reported, since discordance with absolute values may lead to misinterpretation of CBC data. Current Interpretive Data was last revised on 2017. Basophil pct 0.1 % [facility] ([place]) Comment: Interpretive Data Percent cell count reference ranges are not reported, since discordance with absolute values may lead to misinterpretation of CBC data. Current Interpretive Data was last revised on 2017. Blood 12/27/2024 5:03 PM CDT 12/27/2024 5:06 PM CDT us Juancho Conrad MD LAB BLOOD ORDERABLES Final Result HELEN ADORE ([place]) 1 [facility] Department [place] [address] * (ABNORMAL) CBC with auto differential (12/27/2024 5:03 PM CDT) WBC 17.23(H) 3.80 - 9.90 K/cumm Hgb 7.6(L) 13.0 - 17.5 g/dL [facility] ([place]) Hct 24.1(L) 38.9 - 50.3 % [facility] ([place]) Plt 203 150 - 400 K/cumm [facility] ([place]) MPV 10.9 9.1 - 12.3 fL [facility] ([place]) RBC 2.49(L) 4.30 - 5.80 M/cumm [facility] ([place]) MCV 96.8(H) 81.3 - 96.4 fL [facility] ([place]) MCH 30.5 27.1 - 33.3 pg [facility] ([place]) MCHC 31.5(L) 32.3 - 35.7 g/dL [facility] ([place]) RDW CV 17.5(H) 11.1 - 14.9 % [facility] ([place]) RDW SD 61.7(H) 35.7 - 48.1 fL [facility] ([place]) NRBC abs 0.00 0.00 - 0.01 K/cumm [facility] ([place]) Blood 12/27/2024 5:03 PM CDT 12/27/2024 5:06 PM CDT Juancho Conrad MD LAB BLOOD ORDERABLES Final Result [facility] ([place]) 1 [facility] Department [place] [address] * ABO/Rh (12/27/2024 5:03 PM CDT) ABO/Rh O Positive Blood 12/27/2024 5:03 PM CDT 12/27/2024 5:06 PM CDT Narrative [facility] ([place]) - 12/27/2024 5:50 PM CDT Has the patient had Daratumumab or Isatuximab in the past 6 months?->Unknown Juancho Conrad MD LAB BLOOD BANK TEST ORDERAB LES Final Result Performing Organization Address City/[facility]/ZIP Co de Phone Number HELEN [facility] ([place]) 1 [facility] [place] [address] * Crossmatch (12/27/2024 5:03 PM CDT) Pathologist [facility] Crossmatch Compatible HELEN Gutierrez ([place]) Unit number for crossmatch [id number] [facility] Blood 12/27/2024 5:03 PM CDT 12/27/2024 5:06 PM CDT us Floyd Vital MD LAB BLOOD BANK TEST ORD ERABLES Final Result Performing Organization Address [facility] Co de Phone Number HELEN [facility] ([place]) 1 [place] [address] * Antibody screen (12/27/2024 5:03 PM CDT) Pathologist [facility] Delia, indirect, Gel Interpretation Negative ABSC Blood 12/27/2024 5:03 PM CDT 12/27/2024 5:06 PM CDT Narrative [facility] ([place]) - 12/27/2024 5:50 PM CDT Has the patient had Daratumumab or Isatuximab in the past 6 months?->Unknown Juancho Conrad MD LAB BLOOD BANK TEST ORDERAB LES Final Result Performing Organization Address City/[facility]/ZIP Co de Phone Number HELEN [facility] ([place]) 1 [place] [address] * (ABNORMAL) Basic metabolic panel (12/27/2024 5:03 PM CDT) Sodium 140 135 - 145 mmol/L Potassium, pl 4.1 3.3 - 4.9 mmol/L [facility] ([place]) Chloride 110 97 - 110 mmol/L [facility] ([place]) CO2 15(L) 22 - 32 mmol/L [facility] ([place]) Anion gap 15 2 - 15 mmol/L [facility] ([place]) BUN 40(H) 6 - 25 mg/dL [facility] ([place]) Creatinine 2.55(H) 0.80 - 1.30 mg/dL [facility] ([place]) Glucose 110 70 - 199 mg/dL [facility] ([place]) Comment: Interpretive Data Fasting glucose >/= 126 mg/dl is diagnostic for diabetes. Fasting is defined as no caloric intake for at least 8 hours. Fasting glucose between 100 mg/dl to 125 mg/dl is diagnostic of prediabetes. In a patient with classic symptoms of hyperglycemia or hyperglycemic crisis, a random glucose >/= 200 mg/dl is diagnostic for diabetes. In the absence of unequivocal hyperglycemia, results should be confirmed by repeat testing. The classification and Diagnosis of Diabetes Diabetes Care 2021; 46: S19-S40. Current interpretive data was last revised 2022. Calcium 8.2(L) 8.5 - 10.3 mg/dL [facility] ([place]) Blood 12/27/2024 5:03 PM CDT 12/27/2024 5:06 PM CDT Juancho Conrad MD LAB BLOOD ORDERABLES Final Result HELEN [facility] ([place]) 1 [facility] Department [place] [address] * (ABNORMAL) Urinalysis reflex to microscopic and culture Urine (12/27/2024 1:16 PM CDT) Color, ur Yellow Yellow Clarity, ur Clear Clear [facility] ([place]) Specific gravity, ur 1.006 1.003 - 1.030 [facility] ([place]) pH, urine 6.0 [facility] ([place]) Comment: Interpretive Data U rine pH is affected by diet, medications, systemic acid-base disturbances, and renal tubular function. pH may affect urinary stone formation. For example, urine pH below 6.0 may help reduce the tendency for calcium phosphate stones and pH greater than 6.0 may reduce the tendency for uric acid stone formation. Source: [facility] Current Interpretive Data was last revised on 2017 Protein, ur ql Trace Negative [facility] ([place]) Glucose, ur ql Negative Negative [facility] ([place]) Ketones, ur Negative Negative [facility] ([place]) Bilirubin, ur Negative Negative [facility] ([place]) Blood, ur 1+(A) Negative [facility] ([place]) Urobilinogen, ur <2.0 <2.0 mg/dL [facility] ([place]) Nitrite, ur Positive(A) Negative [facility] ([place]) Leukocyte esterase, ur 4+(A) Negative [facility] ([place]) UA reflex comment Reflex to microscopic UA will be performed. [facility] ([place]) Urine 12/27/2024 1:16 PM CDT 12/27/2024 1:26 PM CDT Maikol Vasquez MD LAB MICROBIOLOGY - GENERAL ORD ERABLES Final Result Performing Organization Address [facility] Co de Phone Number HELEN AVITIA ([place]) [address] [place] [address] [place] [address] * Urea nitrogen, urine, random (12/27/2024 1:16 PM CDT) Urea nitrogen, ur 169 mg/dL Comment: Interpretive Data No reference range established. Current interpretive data was last revised 2018. Testing performed by: [facility], [address] [place] [address]., [id number] Urine 12/27/2024 1:16 PM CDT 12/29/2024 9:05 AM CDT us Eduard Haney MD LAB URINE ORDERABLES Final Resu lt Performing Organization Address [facility]/ZIP Co de Phone Number HELEN AVITIA ([place]) 1 [facility] [place] [address] * Sodium, urine, random (12/27/2024 1:16 PM CDT) Sodium, ur <20 mmol/L Comment: Interpretive Data No reference range established. Current interpretive data was last revised 2018. Urine 12/27/2024 1:16 PM CDT 12/28/2024 6:12 PM CDT Narrative HELEN AVITIA ([place]) - 12/28/2024 6:50 PM CDT No normal range Eduard Haney MD LAB URINE ORDERABLES Final Resu lt Performing Organization Address [facility]/ZIP Co de Phone Number HELEN AVITIA ([place]) 1 [facility] [place] [address] * Creatinine, urine, random (12/27/2024 1:16 PM CDT) Creatinine Ur 33.9 mg/dL Comment: Interpretive Data No reference range established. Current interpretive data was last revised 2018. Urine 12/27/2024 1:16 PM CDT 12/28/2024 6:12 PM CDT Narrative HELEN AVITIA ([place]) - 12/28/2024 6:52 PM CDT No normal range Eduard Haney MD LAB URINE ORDERABLES Final Resu lt Performing Organization Address [facility] Co de Phone Number HELEN AVITIA ([place]) 1 [facility] [place] [address] * (ABNORMAL) Blood culture Blood (12/27/2024 1:16 PM CDT) Direct Specimen Exam Stain: Gram Negative Bacilli Time to culture positivity (anaerobic media): 8.8 hours Time to culture positivity (aerobic media): 9.8 hours Comment:Testing performed by : [facility], 1 [facility], [place]., [address] Report Final Report: Enterobacter cloacae complex For susceptibility results, refer to accession number [id number] on the blood culture from 12/27/2024 Enterobacter cloacae complex #2 Same as above. Klebsiella oxytoca/Raoultella ornithinolytica For susceptibility results, refer to accession number [id number] on the blood culture from 12/27/2024 (.) HELEN AVITIA ([place]) Comment:Testing performed by : [facility], 1 [place]., [address] Organism ENTEROBACTER CLOACAE COMPLEX HELEN AVITIA ([place]) Organism ENTEROBACTER CLOACAE COMPLEX HELEN AVITIA ([place]) Organism KLEBSIELLA OXYTOCA/RAOULTELLA ORNITHINOLYTICA HELEN AVITIA ([place]) Blood 12/27/2024 1:16 PM CDT 12/27/2024 5:52 PM CDT Narrative HELEN AVTIIA ([place]) - 12/31/2024 9:41 AM CDT Collection->Peripheral 1. Blood cultures are incubated for 4 days on a continuously monitored blood culture system. The first report of a negative culture is issued within 24 hours of receipt of the specimen in the laboratory. 2. Positive culture results are reported as soon as they are detected. 3. The most important factor for detection of microbes in the setting of bloodstream infection is the volume of blood submitted for culture. Failure to collect an optimal blood volume can result in false negative blood cultures. 4. For pediatric patients, the recommended blood volume to collect follows a weight based strategy. See the electronic test catalog for collection instructions. 5. For positive blood cultures, a rapid molecular test may be performed for organism identification using the jay ePlex blood culture identification panel for gram positive (BCID-GP) and gram negative (BCID-GN) organisms. This nucleic acid amplification test detects microbial DNA in positive blood culture broth. This assay has been cleared by the [place] Food and Drug Administration and its performance characteristics have been verified by the [facility]. For questions about this culture, contact the Microbiology Laboratory at [phone]. Interpretive data was last revised on 24. Maikol Vasquez MD LAB MICROBIOLOGY - GENERAL ORD ERABLES Final Result HELEN ADORE ([place]) 1 [facility] [place] [address] * (ABNORMAL) Blood culture Blood (12/27/2024 1:16 PM CDT) Direct Specimen Exam Molecular Analysis: Klebsiella oxytoca detected by jay ePlex BCID-GN panel. This test does not exclude the possibility of a mixed bacterial infection. Enterobacter cloacae complex detected by jay ePlex BCID-GN panel. This test does not exclude the possibility of a mixed bacterial infection. Notification of: Enterobacter cloacae complex and Klebsiella oxytoca called to and read back by: Capri Tavarez VALET CASHIER [phone] on 12/28/2024 10:14:16 by: Dung GOFF Test result called to and read back by Kelly Clifford on 12/28/2024 10:24:16 by Capri Tavarez Comment:Testing performed by : [facility], [address] [place] [address], [id number] Direct Specimen Exam Stain: Gram Negative Bacilli Time to culture positivity (anaerobic media): 8.8 hours Time to culture positivity (aerobic media): 8.9 hours Notification of: Gram Negative Bacilli called to and read back by: Chantal Leal MT [phone] on 12/28/2024 03:24:46 by: Luis Enrique Avila [place] Test result called to and read back by trung davis on 12/28/2024 04:14:59 by chantal AVITIA ([place]) Comment:Testing performed by : [facility], [address] [place] [address], [id number] Report Final Report: Klebsiella oxytoca/Raoultella ornithinolytica Enterobacter cloacae complex (.) HELEN AVITIA ([place]) Comment:Testing performed by : [facility], [address] [place] [address]., [id number] Organism KLEBSIELLA OXYTOCA/RAOULTELLA ORNITHINOLYTICA HELEN AVITIA ([place]) Organism ENTEROBACTER CLOACAE COMPLEX HELEN AVITIA ([place]) Blood 12/27/2024 1:16 PM CDT 12/27/2024 5:52 PM CDT Narrative HELEN AVITIA ([place]) - 12/31/2024 10:46 AM CDT Collection->Peripheral 1. Blood cultures are incubated for 4 days on a continuously monitored blood culture system. The first report of a negative culture is issued within 24 hours of receipt of the specimen in the laboratory. 2. Positive culture results are reported as soon as they are detected. 3. The most important factor for detection of microbes in the setting of bloodstream infection is the volume of blood submitted for culture. Failure to collect an optimal blood volume can result in false negative blood cultures. 4. For pediatric patients, the recommended blood volume to collect follows a weight based strategy. See the electronic test catalog for collection instructions. 5. For positive blood cultures, a rapid molecular test may be performed for organism identification using the [employer] ePlex blood culture identification panel for gram positive (BCID-GP) and gram negative (BCID-GN) organisms. This nucleic acid amplification test detects microbial DNA in positive blood culture broth. This assay has been cleared by the [place] Food and Drug Administration and its performance characteristics have been verified by the [facility]. For questions about this culture, contact the Microbiology Laboratory at [phone]. Interpretive data was last revised on 24. Organism Antibiotic Method Susceptibility Klebsiella oxytoca/Raoultella ornithinolytica Ampicillin INTERPRETATION Resistant Klebsiella oxytoca/Raoultella ornithinolytica Cefazolin INTERPRETATION Resistant Klebsiella oxytoca/Raoultella ornithinolytica Gentamicin INTERPRETATION Susceptible Klebsiella oxytoca/Raoultella ornithinolytica Ampicillin with Sulbactam INTERPRETATION Intermediate Klebsiella oxytoca/Raoultella ornithinolytica Trimethoprim with Sulfamethoxazole INTERPRETATION Susceptible Klebsiella oxytoca/Raoultella ornithinolytica Meropenem INTERPRETATION Susceptible Klebsiella oxytoca/Raoultella ornithinolytica Cefepime INTERPRETATION Susceptible Klebsiella oxytoca/Raoultella ornithinolytica Ciprofloxacin INTERPRETATION Susceptible Klebsiella oxytoca/Raoultella ornithinolytica Ceftazidime INTERPRETATION Susceptible Klebsiella oxytoca/Raoultella ornithinolytica Ceftriaxone INTERPRETATION Susceptible Klebsiella oxytoca/Raoultella ornithinolytica Piperacillin/Tazobactam INTERPRETATION Susceptible Enterobacter cloacae complex Ampicillin INTERPRETATION Resistant Enterobacter cloacae complex Cefazolin INTERPRETATION Resistant Enterobacter cloacae complex Gentamicin INTERPRETATION Susceptible Enterobacter cloacae complex Ampicillin with Sulbactam INTERPRETATION Resistant Enterobacter cloacae complex Trimethoprim with Sulfamethoxazole INTERPRETATION Susceptible Enterobacter cloacae complex Meropenem INTERPRETATION Susceptible Enterobacter cloacae complex Cefepime INTERPRETATION Susceptible Enterobacter cloacae complex Ciprofloxacin INTERPRETATION Susceptible Enterobacter cloacae complex Ceftazidime INTERPRETATION Resistant Enterobacter cloacae complex Ceftriaxone INTERPRETATION Resistant Enterobacter cloacae complex Piperacillin/Tazobactam INTERPRETATION Resistant Maikol Vasquez MD LAB MICROBIOLOGY - GENERAL ORD ERABLES Final Result HELEN AVITIA ([place]) 1 [facility] [employer] [address] * (ABNORMAL) Urinalysis, microscopic only (12/27/2024 1:16 PM CDT) WBC, ur 11-20(A) 0 - 5 /HPF RBC, ur 0-2 0 - 2 /HPF HELEN AVITIA ([place]) Bacteria, ur 1+(A) HELEN AVITIA ([place]) Culture Reflex Comment Reflex to urine culture will be performed. HELEN AVITIA ([place]) Urine 12/27/2024 1:16 PM CDT 12/27/2024 1:26 PM CDT Maikol Vasquez MD LAB URINE ORDERABLES Final Res ult HELEN AVITIA ([place]) [address] [place] [address] [employer] [address] * (ABNORMAL) Urine culture Urine (12/27/2024 1:16 PM CDT) Report Final Report: Greater than or equal to 100,000 colonies/mL of Klebsiella oxytoca/Raoultella ornithinolytica Plus growth of clinically insignificant bacterial gerard. (.) Comment:Testing performed by : [facility] [facility], [address] [facility], [place] [address] Organism KLEBSIELLA OXYTOCA/RAOULTELLA ORNITHINOLYTICA [facility] ([place]) Organism PLUS GROWTH OF CLINICALLY INSIGNIFICANT GERARD. HELEN [facility] ([place]) Urine 12/27/2024 1:16 PM CDT 12/27/2024 6:21 PM CDT Narrative HELEN AVITIA ([place]) - 12/29/2024 12:21 PM CDT Urine culture reflexed based upon urinalysis results. Testing performed by [facility] ([phone]) Organism Antibiotic Method Susceptibility Klebsiella oxytoca/Raoultella ornithinolytica Ampicillin INTERPRETATION Resistant Klebsiella oxytoca/Raoultella ornithinolytica Cefazolin INTERPRETATION Susceptible Klebsiella oxytoca/Raoultella ornithinolytica Nitrofurantoin INTERPRETATION Susceptible Klebsiella oxytoca/Raoultella ornithinolytica Gentamicin INTERPRETATION Susceptible Klebsiella oxytoca/Raoultella ornithinolytica Trimethoprim with Sulfamethoxazole INTERPRETATION Susceptible Klebsiella oxytoca/Raoultella ornithinolytica Meropenem INTERPRETATION Susceptible Klebsiella oxytoca/Raoultella ornithinolytica Cefepime INTERPRETATION Susceptible Klebsiella oxytoca/Raoultella ornithinolytica Ciprofloxacin INTERPRETATION Susceptible Klebsiella oxytoca/Raoultella ornithinolytica Ceftazidime INTERPRETATION Susceptible Klebsiella oxytoca/Raoultella ornithinolytica Ceftriaxone INTERPRETATION Susceptible Klebsiella oxytoca/Raoultella ornithinolytica Piperacillin/Tazobactam INTERPRETATION Susceptible Klebsiella oxytoca/Raoultella ornithinolytica Cephalexin INTERPRETATION Susceptible Klebsiella oxytoca/Raoultella ornithinolytica Cefuroxime-axetil INTERPRETATION Susceptible Klebsiella oxytoca/Raoultella ornithinolytica Cefdinir INTERPRETATION Susceptible us Maikol Vasquez MD LAB MICROBIOLOGY - GENERAL ORD ERABLES Final Result HELEN AVITIA [place] 1 [facility] Department [place] [address] * CT Abdomen Pelvis WO Contrast (12/27/2024 12:01 PM CDT) Anatomical Region Laterality Modality Body N/A Computed Tomogra phy 12/27/2024 12:1 1 PM CDT Narrative 12/27/2024 12:33 PM CDT EXAM DESCRIPTION: CT ABDOMEN PELVIS WO CONTRAST REASON FOR STUDY: Coffee ground emesis [facility] with cc of coffee ground emesis/uti. Pt has chronic greco. Staff noted pt to have coffee ground emesis last night. Denies blood thinner use. A/Ox4 upon triage. TECHNIQUE: CT scan of the abdomen and pelvis performed without intravenous and without oral contrast using helical scanning technique. Reconstructed coronal and sagittal MPR images reviewed. All images stored on PACS. Automated exposure control was used as a dose optimization technique for this examination. COMPARISON: CT abdomen and pelvis 08/14/2024 FINDINGS: The sensitivity for detection of visceral lesions is diminished without the use of intravenous contrast. LOWER CHEST: Stable chronic trace right pleural effusion. Dependent bilateral subsegmental atelectasis. LIVER: Normal size. No identified cystic or solid masses. GALLBLADDER: Layering gallstones versus gallbladder wall calcification. No evidence of acute cholecystitis. BILE DUCTS: No intrahepatic or extrahepatic ductal dilatation. SPLEEN: Normal size. No focal lesions. PANCREAS: No identified cystic or solid masses. No significant calcifications. No adjacent inflammation or peripancreatic fluid collections. Pancreatic duct not dilated. ADRENALS: Normal. KIDNEYS/URINARY TRACT: No suspicious renal lesion. No stones. There is mild bilateral hydroureteronephrosis and mild perinephric stranding. The urinary bladder is markedly distended. A partially visualized presumed Greco catheter balloon is seen within the penile urethra (axial image 161). GI: The distal esophagus and stomach are unremarkable. No bowel dilation. Left lower quadrant colostomy. The appendix is unremarkable. There is circumferential wall thickening compatible with known malignancy. Partially visualized percutaneous drain terminates in the region of the left ischial rectal fossa. Significant interval decrease in size of the perirectal soft tissue thickening. PERITONEUM: No ascites or free air. RETROPERITONEUM: No mass or adenopathy. REPRODUCTIVE: Prostate is enlarged. VASCULATURE: No abdominal aortic aneurysm. MUSCULOSKELETAL: Healing nondisplaced to mildly displaced fractures of the right lateral 8th 9th and 10th ribs. Healing nondisplaced fractures of the posterior right 11th and 12th ribs. No acute fractures identified. No suspicious osseous lesions. OTHER: No other abnormality. IMPRESSION: 1. An apparent Greco catheter balloon is partially visualized within the penile urethra, requiring repositioning. The urinary bladder is markedly distended, with mild bilateral hydroureteronephrosis. 2. Prominent circumferential rectal wall thickening consistent with known malignancy. Significant interval decrease in the left perirectal soft tissue, with a percutaneous drain in place. THIS IS AN ELECTRONICALLY VERIFIED FINAL REPORT 12/27/2024 12:33 PM - Electronically signed by Ilir Aguilar M.D. KR: PATITO Report ID: [id number] Reading Location: [id number] Procedure Note Ilir Aguilar MD - 12/27/2024 EXAM DESCRIPTION: CT ABDOMEN PELVIS WO CONTRAST REASON FOR STUDY: Coffee ground emesis Pt to ED from [facility] with cc of coffee ground emesis/uti. Pt has chronicfoley. Staff noted pt to have coffee ground emesis last night. Denies bloodthinner use. A/Ox4 upon triage. TECHNIQUE: CT scan of the abdomen and pelvis performed without intravenousand without oral contrast using helical scanning technique. Reconstructed coronal and sagittal MPR images reviewed. All images stored on PACS.Automated exposure control was used as a dose optimization technique for this examination. COMPARISON: CT abdomen and pelvis 08/14/2024 FINDINGS: The sensitivity for detection of visceral lesions is diminished withoutthe use of intravenous contrast. LOWER CHEST: Stable chronic trace right pleural effusion. Dependent bilateral subsegmental atelectasis. LIVER: Normal size. No identified cystic or solid masses. GALLBLADDER: Layering gallstones versus gallbladder wall calcification.No evidence of acute cholecystitis. BILE DUCTS: No intrahepatic or extrahepatic ductal dilatation. SPLEEN: Normal size. No focal lesions. PANCREAS: No identified cystic or solid masses. No significant calcifications. No adjacent inflammation or peripancreatic fluidcollections. Pancreatic duct not dilated. ADRENALS: Normal. KIDNEYS/URINARY TRACT: No suspicious renal lesion. No stones. There is mild bilateral hydroureteronephrosis and mild perinephric stranding. The urinary bladder is markedly distended. A partially visualized presumedFoley catheter balloon is seen within the penile urethra (axial image 161). GI: The distal esophagus and stomach are unremarkable. No boweldilation. Left lower quadrant colostomy. The appendix is unremarkable. There is circumferential wall thickening compatible with known malignancy.Partially visualized percutaneous drain terminates in the region of the left ischial rectal fossa. Significant interval decrease in size of the perirectalsoft tissue thickening. PERITONEUM: No ascites or free air. RETROPERITONEUM: No mass or adenopathy. REPRODUCTIVE: Prostate is enlarged. VASCULATURE: No abdominal aortic aneurysm. MUSCULOSKELETAL: Healing nondisplaced to mildly displaced fractures ofthe right lateral 8th 9th and 10th ribs. Healing nondisplaced fractures ofthe posterior right 11th and 12th ribs. No acute fractures identified. No suspicious osseous lesions. OTHER: No other abnormality. IMPRESSION: 1. An apparent Greco catheter balloon is partially visualized within the penile urethra, requiring repositioning. The urinary bladder is markedly distended, with mild bilateral hydroureteronephrosis. 2. Prominent circumferential rectal wall thickening consistent withknown malignancy. Significant interval decrease in the left perirectal softtissue, with a percutaneous drain in place. THIS IS AN ELECTRONICALLY VERIFIED FINAL REPORT 12/27/2024 12:33 PM - Electronically signed by Ilir Aguilar M.D. KR: PATITO Report ID: [id number] Reading Location: [id number] us Maikol Vasquez MD IMG CT PROCEDURES Final Result * Sepsis Lactate w/ Reflex (12/27/2024 10:28 AM CDT) Sepsis Lactate 1.0 0.7 - 2.0 mmol/L Blood 12/27/2024 10:2 8 AM CDT 12/27/2024 10:46 AM CDT us Maikol Vasquez MD LAB BLOOD ORDERABLES Final Res ult [facility] ([place]) 1 [facility] Department of Laboratories [place], [place] [id number] * (ABNORMAL) eGFR (12/27/2024 10:28 AM CDT) eGFR 25(L) >=60 mL/min/1. 73 m2 Comment: Interpretive Data Reference Interval Normal >/= 90 mL/min/1.73m2 Mildly decreased* 60 - 89 mL/min/1.73m2 Mildly to moderately decreased 45 - 59 mL/min/1.73m2 Moderately to severely decreased 30 - 44 mL/min/1.73m2 Severely decreased 15 - 29 mL/min/1.73m2 Kidney Failure < 15 mL/min/1.73m2 *Relative to young adult level Estimated glomerular filtration rate is determined by the 2020 CKD-EPI equation recommended by the National Kidney Foundation (A Unifying Approach to GFR Estimation: Recommendations of the NKF-ASK Task Force on Reassessing the Inclusion of Race in Diagnosing Kidney Disease, JASN 2020). The CKD-EPI equation should not be used for patients with unstable renal function and has not been validated in children and those over 70. Current interpretive data was last reviewed 2021. Blood 12/27/2024 10:2 8 AM CDT 12/27/2024 10:46 AM CDT us Maikol Vasquez MD LAB BLOOD ORDERABLES Final Res ult [facility] ([place]) 1 [facility] Department [place] [address] * (ABNORMAL) CBC with auto differential (12/27/2024 10:28 AM CDT) WBC 22.02(H) 3.80 - 9.90 K/cumm Hgb 8.4(L) 13.0 - 17.5 g/dL [facility] ([place]) Hct 27.2(L) 38.9 - 50.3 % [facility] ([place]) Plt 215 150 - 400 K/cumm [facility] ([place]) MPV 10.8 9.1 - 12.3 fL [facility] ([place]) RBC 2.83(L) 4.30 - 5.80 M/cumm [facility] ([place]) MCV 96.1 81.3 - 96.4 fL [facility] ([place]) MCH 29.7 27.1 - 33.3 pg [facility] ([place]) MCHC 30.9(L) 32.3 - 35.7 g/dL [facility] ([place]) RDW CV 17.4(H) 11.1 - 14.9 % [facility] ([place]) RDW SD 61.9(H) 35.7 - 48.1 fL [facility] ([place]) NRBC abs 0.00 0.00 - 0.01 K/cumm [facility] ([place]) Blood Venous blood specimen / Unknown 12/27/2024 10:28 AM CDT 12/27/2024 10:46 AM CDT us Maikol Vasquez MD LAB BLOOD ORDERABLES Final Res ult HELEN AVITIA ([place]) 1 [facility] Department [place] [address] * (ABNORMAL) Manual Differential (12/27/2024 10:28 AM CDT) Differential Manual Cells Counted 100 [facility] ([place]) Neutrophil abs 20.04(H) 1.50 - 6.50 K/cumm [facility] ([place]) Imm gran abs 0.22(H) 0.00 - 0.10 K/cumm [facility] ([place]) Lymphocyte abs 0.88 0.80 - 3.30 K/cumm [facility] ([place]) Monocyte abs 0.88(H) 0.20 - 0.80 K/cumm [facility] ([place]) Neutrophil pct 88.0 % [facility] ([place]) Comment: Interpretive Data Percent cell count reference ranges are not reported, since discordance with absolute values may lead to misinterpretation of CBC data. Current Interpretive Data was last revised on 2017. Lymphocyte pct 4.0 % [facility] ([place]) Comment: Interpretive Data Percent cell count reference ranges are not reported, since discordance with absolute values may lead to misinterpretation of CBC data. Current Interpretive Data was last revised on 2017. Monocyte pct 4.0 % [facility] ([place]) Comment: Interpretive Data Percent cell count reference ranges are not reported, since discordance with absolute values may lead to misinterpretation of CBC data. Current Interpretive Data was last revised on 2017. Band Neutrophil pct 3.0 0.0 - 5.0 % [facility] ([place]) Myelocyte pct 1.0(H) 0.0 - 0.0 % [facility] ([place]) Toxic granulation Present(A) [facility] ([place]) RBC morphology Consistent with RBC Indicies [facility] ([place]) Anisocytosis Slight(A) [facility] ([place]) Microcytes 3-7/HPF(A) [facility]ER A ([place]) Platelet estimate Automated Count Confirmed [facility] ([place]) Blood 12/27/2024 10:2 8 AM CDT 12/27/2024 10:46 AM CDT us Maikol Vasquez MD LAB BLOOD ORDERABLES Final Res ult [facility] ([place]) 1 [facility] Department [place] [address] * (ABNORMAL) Comprehensive metabolic panel (12/27/2024 10:28 AM CDT) Sodium 138 135 - 145 mmol/L Potassium, pl 4.3 3.3 - 4.9 mmol/L [facility] ([place]) Chloride 104 97 - 110 mmol/L [facility] ([place]) CO2 16(L) 22 - 32 mmol/L [facility] ([place]) Anion gap 19(H) 2 - 15 mmol/L [facility] ([place]) BUN 38(H) 6 - 25 mg/dL [facility] ([place]) Creatinine 2.67(H) 0.80 - 1.30 mg/dL [facility] ([place]) Glucose 127 70 - 199 mg/dL [facility] ([place]) Comment: Interpretive Data Fasting glucose >/= 126 mg/dl is diagnostic for diabetes. Fasting is defined as no caloric intake for at least 8 hours. Fasting glucose between 100 mg/dl to 125 mg/dl is diagnostic of prediabetes. In a patient with classic symptoms of hyperglycemia or hyperglycemic crisis, a random glucose >/= 200 mg/dl is diagnostic for diabetes. In the absence of unequivocal hyperglycemia, results should be confirmed by repeat testing. The classification and Diagnosis of Diabetes Diabetes Care 2021; 46: S19-S40. Current interpretive data was last revised 2022. Calcium 8.6 8.5 - 10.3 mg/dL [facility] ([place]) Bilirubin, total 0.2 0.1 - 1.2 mg/dL [facility] ([place]) Protein, pl 7.1 6.5 - 8.5 g/dL [facility] ([place]) Albumin 3.1(L) 3.5 - 5.0 g/dL [facility] ([place]) Alk phos 67 40 - 130 Units/L [facility] ([place]) ALT 8 7 - 55 Units/L [facility] ([place]) AST 11 10 - 50 Units/L [facility] ([place]) Blood Venous blood specimen / Unknown 12/27/2024 10:28 AM CDT 12/27/2024 10:46 AM CDT us Maikol Vasquez MD LAB BLOOD ORDERABLES Final Res ult Performing Organization Address [facility] Co de Phone Number [facility] ([place]) [address] [place] [address] Department [place] [address] * (ABNORMAL) eGFR (12/06/2024 9:55 AM CDT) eGFR 56(L) >=60 mL/min/1. 73 m2 Comment: Interpretive Data Reference Interval Normal >/= 90 mL/min/1.73m2 Mildly decreased* 60 - 89 mL/min/1.73m2 Mildly to moderately decreased 45 - 59 mL/min/1.73m2 Moderately to severely decreased 30 - 44 mL/min/1.73m2 Severely decreased 15 - 29 mL/min/1.73m2 Kidney Failure < 15 mL/min/1.73m2 *Relative to young adult level Estimated glomerular filtration rate is determined by the 2020 CKD-EPI equation recommended by the National Kidney Foundation (A Unifying Approach to GFR Estimation: Recommendations of the NKF-ASK Task Force on Reassessing the Inclusion of Race in Diagnosing Kidney Disease, JASN 2020). The CKD-EPI equation should not be used for patients with unstable renal function and has not been validated in children and those over 70. Current interpretive data was last reviewed 2021. Testing performed by: [facility], [facility], [place], [address] Blood 12/06/2024 9:55 AM CDT 12/06/2024 10:37 AM CDT us Bin Ryder MD LAB BLOOD ORDERABLES Ekta l Result [facility] ([place]) 1 [facility] Department [place] [address] * (ABNORMAL) Differential, auto (12/06/2024 9:55 AM CDT) Neutrophil abs 9.04(H) 1.50 - 6.50 K/cumm [facility] ([place]) Comment:Testing performed by : [facility] [address], Medical Office [facility] [address], [place] [address] Imm gran abs 0.32(H) 0.00 - 0.10 K/cumm [facility] ([place]) Comment:Testing performed by : [facility] [address], Medical Office [facility] [address], [place] [address] Lymphocyte abs 0.55(L) 0.80 - 3.30 K/cumm [facility] ([place]) Comment:Testing performed by : [facility] [address], Medical Office [facility] [address], [place] [address] Monocyte abs 0.75 0.20 - 0.80 K/cumm [facility] ([place]) Comment:Testing performed by : [facility] [address], Medical Office [facility] [address], [place] [address] Eosinophil abs 0.25 0.00 - 0.50 K/cumm [facility] ([place]) Comment:Testing performed by : [facility] [address], Medical Office [facility] [address], [place] [address] Basophil abs 0.07 0.00 - 0.10 K/cumm [facility] ([place]) Comment:Testing performed by : [facility] [address], Medical Office [facility] [address], [place] [address] Neutrophil pct 82.4 % [facility] ([place]) Comment: Interpretive Data Percent cell count reference ranges are not reported, since discordance with absolute values may lead to misinterpretation of CBC data. Current Interpretive Data was last revised on 2022. Testing performed by: [facility] [address], Medical Office [facility] [address], [place] [address] Imm gran pct 2.9 % [facility] ([place]) Comment: Interpretive Data Percent cell count reference ranges are not reported, since discordance with absolute values may lead to misinterpretation of CBC data. Current Interpretive Data was last revised on 2022. Testing performed by: [facility] [address], Medical Office [address], [place] [address] Lymphocyte pct 5.0 % [facility] ([place]) Comment: Interpretive Data Percent cell count reference ranges are not reported, since discordance with absolute values may lead to misinterpretation of CBC data. Current Interpretive Data was last revised on 2022. Testing performed by: [facility] [address], Medical Office [address], [place] [address] Monocyte pct 6.8 % [facility] ([place]) Comment: Interpretive Data Percent cell count reference ranges are not reported, since discordance with absolute values may lead to misinterpretation of CBC data. Current Interpretive Data was last revised on 2022. Testing performed by: [facility] [address], Medical Office [address], [place] [address] Eosinophil pct 2.3 % [facility] ([place]) Comment: Interpretive Data Percent cell count reference ranges are not reported, since discordance with absolute values may lead to misinterpretation of CBC data. Current Interpretive Data was last revised on 2022. Testing performed by: [facility] [address], Medical Office [address], [place] [address] Basophil pct 0.6 % CERMAHSA [facility]IA ([place]) Comment: Interpretive Data Percent cell count reference ranges are not reported, since discordance with absolute values may lead to misinterpretation of CBC data. Current Interpretive Data was last revised on 2022. Testing performed by: [facility] [address], Medical Office [address], [place] [address] Blood 12/06/2024 9:55 AM CDT 12/06/2024 9:59 AM CDT us Bin Ryder MD LAB BLOOD ORDERABLES Ekta agustin Result [facility]EN [facility]IA ([place]) 1 [facility] Department [place] [address] * (ABNORMAL) Iron profile w/ IBC (12/06/2024 9:55 AM CDT) Pathologist [facility] Iron 47(L) 50 - 150 mcg/dL Comment:Testing performed by : [facility], [facility], [place], [address] TIBC 228(L) 250 - 400 mcg/dL [facility] ([place]) Comment:Testing performed by : [facility], [facility], [place], [address] Transferrin saturation 21 20 - 50 % [facility] ([place]) Comment:Testing performed by : [facility], [facility], [place], [address] Blood 12/06/2024 9:55 AM CDT 12/06/2024 11:42 AM CDT Bin Ryder MD LAB BLOOD ORDERABLES Ekta agustin Result [facility]IA ([place]) 1 [facility] Department [place] [address] * (ABNORMAL) CBC with auto differential (12/06/2024 9:55 AM CDT) Pathologist [facility] WBC 10.98(H) 3.80 - 9.90 K/cumm [facility] ([place]) Comment:Testing performed by : [facility] [address], Medical Office [facility] [address], [place] [address] Hgb 10.7(L) 13.0 - 17.5 g/dL [facility] ([place]) Comment:Testing performed by : [facility] [address], Medical Office [address], [place] [address] Hct 34.2(L) 38.9 - 50.3 % [facility] ([place]) Comment:Testing performed by : [facility] [address], Medical Office [address], [place] [address] Plt 269 150 - 400 K/cumm [facility] ([place]) Comment:Testing performed by : [facility] [address], Medical Office [facility] [address] [facility] [address], [place] [address] MPV 10.0 9.1 - 12.3 fL [facility] ([place]) Comment:Testing performed by : [facility] [address], Medical Office [facility] [address] [facility] [address], [place] [address] RBC 3.43(L) 4.30 - 5.80 M/cumm [facility] ([place]) Comment:Testing performed by : [facility] [address], Medical Office [facility] B [facility] [address], [place] [address] MCV 99.7(H) 81.3 - 96.4 fL [facility] ([place]) Comment:Testing performed by : [facility] [address], Medical Office [facility] B [facility] [address], [place] [address] MCH 31.2 27.1 - 33.3 pg [facility] ([place]) Comment:Testing performed by : [facility] [address], Medical Office [facility] [address] [facility] [address], [place] [address] MCHC 31.3(L) 32.3 - 35.7 g/dL [facility] ([place]) Comment:Testing performed by : [facility] [address], Medical Office [facility] [address], [place] [address] RDW CV 20.0(H) 11.1 - 14.9 % [facility] ([place]) Comment:Testing performed by : [facility] [address], Medical Office [facility] [address] [facility] [address], [place] [address] RDW SD 75.3(H) 35.7 - 48.1 fL [facility] ([place]) Comment:Testing performed by : [facility] [address], Medical Office [facility] B [facility] [address], [place] [address] Blood 12/06/2024 9:55 AM CDT 12/06/2024 9:59 AM CDT us Bin Ryder MD LAB BLOOD ORDERABLES Ekta vamsi Result [facility] ([place]) 1 [facility] [place] [address] * Ferritin (12/06/2024 9:55 AM CDT) Ferritin 321 30 - 400 ng/mL Comment:Testing performed by : [facility], [place], [address] Blood 12/06/2024 9:55 AM CDT 12/06/2024 11:42 AM CDT Bin Ryder MD LAB BLOOD ORDERABLES Ekta l Result [facility] ([place]) 1 [facility] Department [place] [address] * (ABNORMAL) Comprehensive metabolic panel (12/06/2024 9:55 AM CDT) Sodium 142 135 - 145 mmol/L Comment:Testing performed by : [facility], [place], [address] Potassium, pl 3.4 3.3 - 4.9 mmol/L [facility] ([place]) Comment:Testing performed by : [facility], [place], [address] Chloride 107 97 - 110 mmol/L [facility] ([place]) Comment:Testing performed by : [facility], [place], [address] CO2 20(L) 22 - 32 mmol/L [facility] ([place]) Comment:Testing performed by : [facility], [place], [address] Anion gap 15 2 - 15 mmol/L [facility] ([place]) Comment:Testing performed by : [facility], [place], [address] BUN 16 6 - 25 mg/dL [facility] ([place]) Comment:Testing performed by : [facility], [place], [address] Creatinine 1.36(H) 0.80 - 1.30 mg/dL [facility] ([place]) Comment:Testing performed by : [facility], [place], [address] Glucose 93 70 - 199 mg/dL [facility] ([place]) Comment: Interpretive Data Fasting glucose >/= 126 mg/dl is diagnostic for diabetes. Fasting is defined as no caloric intake for at least 8 hours. Fasting glucose between 100 mg/dl to 125 mg/dl is diagnostic of prediabetes. In a patient with classic symptoms of hyperglycemia or hyperglycemic crisis, a random glucose >/= 200 mg/dl is diagnostic for diabetes. In the absence of unequivocal hyperglycemia, results should be confirmed by repeat testing. The classification and Diagnosis of Diabetes Diabetes Care 2021; 46: S19-S40. Current interpretive data was last revised 2022. Testing performed by: [place], [address] Calcium 9.1 8.5 - 10.3 mg/dL [facility] Comment:Testing performed by : [place], [address] Bilirubin, total <0.2 0.1 - 1.2 mg/dL [facility] Comment:Testing performed by : [facility], [place], [address] Protein, pl 7.4 6.5 - 8.5 g/dL [facility] Comment:Testing performed by : [facility], [place], [address] Albumin 3.3(L) 3.5 - 5.0 g/dL [facility] Comment:Testing performed by : [place], [address] Alk phos 84 40 - 130 Units/L [facility]) Comment:Testing performed by : [place], [address] ALT 9 7 - 55 Units/L [facility] Comment:Testing performed by : [facility], [place], [address] AST 12 10 - 50 Units/L [facility] Comment:Testing performed by : [facility], [place], [address] Blood 12/06/2024 9:55 AM CDT 12/06/2024 10:37 AM CDT us Bin Ryder MD LAB BLOOD ORDERABLES Ekta agustin Result [facility] 1 [facility] Department [place] [address] from Last 3 Months Additional Health Concerns Active Problems Noted Date Diagnosed Date Autogenerated Problem 02/15/2025 Insurance [employer] CHOICE MEDICARE PPO HU[employer] CHOICE MEDICARE PPO Advance Directives For more information, please contact: [phone] Documents on File Type Date Recorded Patient Curriculum Developer Expl anation ADVANCE DIRECTIVE 09/16/2024 11:04 AM POLS T - Phys Order for PT Preferences ADVANCE DIRECTIVE 09/01/2024 3:25 PM Power of Glass Lathe Operator-Financial * Full Code (Latest Code Status on File) Date Activated Date Inactivated Comments 03/01/2025 11:42 AM 03/01/2025 7:37 PM * Full Code Date Activated Date Inactivated Comments 12/28/2024 10:40 AM 01/04/2025 8:28 PM * LIMITED - No CPR Date Activated Date Inactivated Comments 12/28/2024 7:41 AM 12/28/2024 10:40 AM Question Answer Comments Provide aggressive medical m anagement before a full cardiopulmonary arrest occurs. Use antibiotics, IV Fluids, and medical treatment unless specifically selected below: No intubationNo non-invasive ventilation * Full Code Date Activated Date Inactivated Comments 12/27/2024 6:31 PM 12/28/2024 7:40 AM * Full Code Date Activated Date Inactivated Comments 10/03/2024 12:13 PM 10/07/2024 6:57 PM Care Teams Whale Trainer Relationship Specialty Start Date End Date Olvin Montgomery MD PCP - General Internal Medicine 06/17/24 Ten Canales MD [phone] [place] [address] Surgeon Colon and Rectal Surgery 07/21/24 Hubert Robledo MD PhD [address] [place] [address] Radiation Oncologist Radiation Oncology 08/26/24 Bin Ryder MD 1 [place] [address] Consulting Physician Medical Oncology 08/26/24
--- OUTSIDE RECORDS SUMMARY | 2025-03-05 20:22 | XMS_ITS | Clinical Summary ---
Author Organization [facility] Facility Address [address] [place] [address] Care Team Providers Care Senior Project Architect Name Role Phone Olvin Montgomery MD Primary Care Provider [phone] Medications atorvastatin (LIPITOR) 10 MG tablet Take 1 tablet (10 mg total) by mouth every night 90 tablet 1 03/16/2024 Active Social History Tobacco Use Types Packs/Day Years Used Date Smoking Tobacco: Never Assessed Sex and Gender Information Value Date Recorded Sex Assigned at Not on file Legal Sex Male 9:52 AM EDT Gender Identity Not on file Sexual Orientation Not on file Last Filed Vital Signs Vital Sign Reading Time Taken Comments Blood Pressure 120/70 03/15/2024 4:19 PM CDT Pulse 68 03/15/2024 4:19 PM CDT Temperature 36.1 C (97 F) 03/15/2024 4:19 PM CDT Respiratory Rate 18 03/15/2024 4:19 PM CDT Oxygen Saturation 98% 03/15/2024 4:19 PM CDT Inhaled Oxygen Concentration - - Weight 78.5 kg (173 lb) 03/15/2024 4:19 PM CDT Height - - Body Mass Index - - Plan of Treatment Health Maintenance Due Date Last Done Comments Pneumococcal Vaccine: 50+ Years (1 of 2 - PCV) 1973 Colorectal Cancer Screening: Annual FOBT 2003 Colorectal Cancer Screening: Colonoscopy 2003 Colorectal Cancer Screening: Sigmoidoscopy 2003 Influenza Vaccine (#1) 2025 3, 04/11/2022, 03/11/2020, Additional history exists Hepatitis B Vaccine Aged Out No longe r eligible based on patient's age to complete this topic Insurance [employer] Hum[employer] Advance Directives Documents on File Type Date Recorded Patient Stemmer Machine Expl anation Advance Care Planning 05/20/2024 10:07 AM Care Teams Senior Project Architect Relationship Specialty Start Date End Date Olvin Montgomery MD [facility] [address] [place] [address] PCP - General Internal Medicine 12/24/23
--- OUTSIDE RECORDS SUMMARY | 2025-03-05 20:22 | XMS_ITS | Patient Health Record ---
Author Organization formerly [facility] Address [address] [place] [address] Care Team Providers Care Electrical Construction Project Manager Name Role Phone Carlton Pereyra Primary Care Provider Allergies Allergen (clinical drug ingredient) Drug/Non Drug Allergy documented on EMR Reaction Allergy Type Onset Date Status Hair dye Hair Dye (uncoded) rash/burn Allergy A ctive Reason For Referral No Information Medications Medication SIG (Take, Route, Frequency, Duration) Notes Start Date End Date Status ARIPiprazole 5 MG 1 tablet Orally Once a day; Duration: 90 days 06/30/2024 Active Finasteride 5 MG 1 tablet Orally Once a day; Duration: 30 day(s) Active Aspirin Active Levothyroxine Sodium 50 MCG 1 tablet in the morning on an empty stomach Orally Once a day; Duration: 30 day(s) Active Atorvastatin Calcium 10 MG 1 tablet Oral ly Once a day; Duration: 30 day(s) Active Acetaminophen 500 MG 1 capsule as needed Orally every 6 hrs Active buPROPion HCl ER (XL) 300 MG 1 tablet in the morning Once a day; Duration: 90 days Active Sertraline HCl 100 MG 2 tablets every da y in am Orally Once a day; Duration: 90 days Active Social History Tobacco Use: Social History Observation Description Date Details (start date - stop date) Current Smoker NA - NA Sex Assigned At : Social History Observation Description Sex Assigned At Male Dont use, Tobacco Use/Smoking Question Answer Notes Are you a current every day smoker Additional Findings: Tobacco User Light cigarett e smoker ((1-9 cigs/day) Tobacco Control (Standard) Question Answer Notes Tobacco use: Current every day smoker Additional Findings: Tobacco user Moderate cigar ette smoker (10-19 cigs/day) Problems Problem Type SNOMED Code ICD Code Onset Dates Problem Status W/U Status Risk Notes Problem Tobacco dependence (91076273) Tobacco dependence (F17.200) Active confirmed Problem Bipolar affective disorder, currently depressed, mild (392248303) Bipolar 1 disorder, depressed, mild (F31.31) Active confirmed Problem Bipolar 1 disorder (914829011) Bipolar 1 disorder (F31.9) Active confirmed Problem Nicotine dependence (69875048) Nicotine dependence (F17.200) Active confirmed Problem Hypothyroidism (74777285) Hypothyroidism, unspecified type (E03.9) Active confirmed Problem Benign prostatic hypertrophy without outflow obstruction (285845188) Benign prostatic hyperplasia, presence of lower urinary tract symptoms unspecified, unspecified morphology (N40.0) Active confirmed Vital Signs Heart Rate 84 /min 06/30/2024 Temperature 97.4 degrees Fahrenheit 05/05/2024 Respiratory Rate 16 /min 06/30/2024 Oximetry 98 % 06/30/2024 Blood pressure diastolic 70 mm Hg 06/30/2024 Height 68 in 06/30/2024 Blood pressure systolic 124 mm Hg 06/30/2024 Weight 158.6 lbs 06/30/2024 BMI 24.11 kg/m2 06/30/2024 Encounters Encounter Location Date Provider Diagnosis [address] [place] [address] 05/05/2024 Carlton Pereyra Bipolar 1 disorder F31.[address] [address] 06/30/2024 Carlton Pereyra Bipolar 1 disorder F31.9 Assessments Encounter Date Diagnosis (ICD Code) Assessment Notes Treatment Notes Treatment Clinical Notes Section Notes 06/30/2024 Bipolar 1 disorder (ICD-10 - F31.9) Client depressed due to health issues. Mostly situational based and unclear if medication change would be helpful but client asking for medication adjustment. GIven bupropion at 300 mg and client receiving multiple antibiotic medications on and off, reluctant to increase to 450 mg to limit toxicity. Sertraline at maximum dosage. Discussed switching lurasidone to aripiprazole to see if more helpful. Client is agreeable. 05/05/2024 Bipolar 1 disorder (ICD-10 - F31.9) 05/05/2024 Other Discussed sleep hygiene and caffeine intake with encouragement to limit electronic devices an hour before bed and to limit caffeine after 3:00pm. Exercise benefits for mood and health discussed. Psychoeducation regarding psychiatric illness provided. Client was educated about risks and benefits of medication, alternatives to medication, off label uses of medication, suicidal ideation with SSRIs, self-administrati on and compliance with medication along with how to safely store medication. Verbal informed consent obtained. Client agrees to return sooner if symptoms worsen or if suicidal or homicidal ideations occur. Client has the phone number to the 24-hour crisis line at [facility]. Questions addressed. Client verbalized understanding of all information and is agreeable to treatment plan. 06/30/2024 Other Discussed sleep hygiene and caffeine intake with encouragement to limit electronic devices an hour before bed and to limit caffeine after 3:00pm. Exercise benefits for mood and health discussed. Psychoeducation regarding psychiatric illness provided. Client was educated about risks and benefits of medication, alternatives to medication, off label uses of medication, suicidal ideation with SSRIs, self-administrati on and compliance with medication along with how to safely store medication. Verbal informed consent obtained. Client agrees to return sooner if symptoms worsen or if suicidal or homicidal ideations occur. Client has the phone number to the 24-hour crisis line at [facility]. Questions addressed. Client verbalized understanding of all information and is agreeable to treatment plan. Client depressed due to health issues. Mostly situational based and unclear if medication change would be helpful but client asking for medication adjustment. GIven bupropion at 300 mg and client receiving multiple antibiotic medications on and off, reluctant to increase to 450 mg to limit toxicity. Sertraline at maximum dosage. Discussed switching lurasidone to aripiprazole to see if more helpful. Client is agreeable. Plan Of Treatment Next Appt Details Provider Name:Carlton syed, 03/15/2025 02:20:00 PM, [address], [place], [address], Insurance Providers Payer Name Payer Address Payer Phone Subscriber Number Group Number Insured Name Patient Relationship to Insured Coverage Start Date Coverage End Date HUMANA MEDICARE ADV [address] [address] [place] [address] [id number] Thomas Nuñez Self - patient is the insured 4 Medical (General) History Medical History History ICD Code hypothyroidism bipolar disorder enlarged prostate Surgical History Surgery Date(Month/Year) bowel obstruction repair 2006 Lt. ear cancerous spot removal 2023 Hospitalization History Reason Date(Month/Year) bowel obstruction 2007 infection 01/2024
--- OUTSIDE RECORDS SUMMARY | 2025-03-05 20:22 | XMS_ITS | Encounter Summary ---
Author Organization [facility] Address [address] [facility] [place] [address] Phone Care Team Providers Care Certified Real Estate Appraiser Name Role Phone Olvin Montgomery MD Primary Care Provider [phone] Reason for Visit * Reason Onset Date Comments colostomy 03/04/2025 Encounter Details Date Type Department Care Team (Late st Contact Info) Description 03/04/[facility] [address] [place] [address] Lori Uriarte, RN [place] colostomy Social History Tobacco Use Types Packs/Day Years Used Date Smoking Tobacco: Never Assessed Sex and Gender Information Value Date Recorded Sex Assigned at Not on file Legal Sex Male 3:29 PM CDT Gender Identity Not on file Sexual Orientation Not on file documented as of this encounter Miscellaneous Notes * Telephone Encounter - Lori Uriarte RN - 03/04/2025 4:43 PM CDT SITUATION: No output in colostomy bag since yesterday BACKGROUND: He had water in colostomy bag yesterday but nothing today. Denies pain, no N/V, no fever, abdomen is not distended. States he drinks lots of fluids every day. He has had colostomy for 6 months now. HISTORY: [facility] patient See care advice and disposition for Guideline. ASSESSMENT & RECOMMENDATION: Floor Refinisher notified: Ellie Mayer, Home visit scheduled: 03/05/25, and Advised patient that there is noon call visit service available. Follow disposition instructions provided to receive care. First positive answer recorded, all responses to prior questions were negative. If symptoms increase, change or if new symptoms develop, call your HCP or call back. Recommendations were based on caller information and is not a diagnosis. Verified and reviewed all triage information with caller. Teach-back method utilized. documented in this encounter Plan of Treatment Upcoming Encounters Date Type Department Care Team (Late st Contact Info) Description 03/06/2025 12:00 PM CDT Home Care Visit [address] [address] Ana Chaudhary [place] 03/07/2025 11:00 AM CDT Home Care Visit [address] [address] Joselin Duong PT [place] 03/08/2025 2:00 AM CDT Home Care Visit [address] [address] Ellie Mayer RN [place] 03/15/2025 1:00 AM CDT Home Care Visit [address] [address] Ellie Mayer RN [place] 03/22/2025 1:00 AM CDT Home Care Visit [address] [address] Ellie Mayer RN [place] 03/29/2025 1:00 AM CDT Home Care Visit [address] [address] Ellie Mayer RN [place] 04/05/2025 1:00 AM CDT Home Care Visit [address] [address] Ellie Mayer, RN [place] 04/12/2025 1:00 AM CDT Appointment [address] [address] Ellie Mayer RN [place] documented as of this encounter Visit Diagnoses Not on filedocumented in this encounter Care Teams Certified Real Estate Appraiser Relationship Specialty Start Date End Date Olvin Montgomery MD [address] [place] [address] PCP - General Internal Medicine 02/08/25 documented as of this encounter
--- OUTSIDE RECORDS SUMMARY | 2025-03-05 20:22 | XMS_ITS | Encounter Summary ---
Author Organization [facility] Address [address] [facility] [place] [address] Phone Care Team Providers Care Die Finisher Name Role Phone Olvin Montgomery MD Primary Care Provider Reason for Visit * Auth/Cert (Routine) Specialty Diagnoses / Procedures Referred By Contnicholas t Referred To Contact Referral ID Status Reason Start Date Expiration Date Visits Re quested Visits Authorized [id number] 1 1 Encounter Details Date Type Department Care Team (Late Contact Info) Description 03/05/2025 Home Care Visit [address] [address] Daphne Ken RN [place] CASE COMMUNICATION Social History Tobacco Use Types Packs/Day Years Used Date Smoking Tobacco: Never Assessed Sex and Gender Information Value Date Recorded Sex Assigned at Not on file Legal Sex Male 3:29 PM CDT Gender Identity Not on file Sexual Orientation Not on file documented as of this encounter Plan of Treatment Upcoming Encounters Date Type Department Care Team (Late Contact Info) Description 03/06/2025 12:00 PM CDT Home Care Visit [address] [address] Ana Chaudhary PTA [place] 03/07/2025 11:00 AM CDT Home Care Visit [address] [address] Joselin Duong PT [place] 03/08/2025 2:00 AM CDT Home Care Visit [address] [address] Ellie Mayer, RN [place] 03/15/2025 1:00 AM CDT Home Care Visit [address] [address] Ellie Mayer RN [place] 03/22/2025 1:00 AM CDT Home Care Visit [address] [address] Ellie Mayer RN [place] 03/29/2025 1:00 AM CDT Home Care Visit [address] [address] Ellie Mayer RN [place] 04/05/2025 1:00 AM CDT Home Care Visit [address] [address] Ellie Mayer RN [place] 04/12/2025 1:00 AM CDT Appointment [address] [address] Ellie Mayer RN [place] documented as of this encounter Visit Diagnoses Not on filedocumented in this encounter Care Teams Die Finisher Relationship Specialty Start Date End Date Olvin Montgomery MD [address] [place] [address] PCP - General Internal Medicine 02/08/25 documented as of this encounter
--- OUTSIDE RECORDS SUMMARY | 2025-03-05 20:22 | XMS_ITS | Encounter Summary ---
Author Organization [facility] Address [address] [place] [address] Phone Care Team Providers Care Logistics Research Engineer Name Role Phone Olvin Montgomery MD Primary Care Provider [phone] Ten Canales MD Unavailable [phone] Hubert Robledo MD PhD Unavailable + [phone] Bin Ryder MD Unavailable [phone] Encounter Details Date Type Department Care Team (Late st Contact Info) Description 10/03/2024 Pre Admission [facility] Medicine Physicians [facility] Oncology [address] [place] [address] Medical Office [address] [place] [address] Bin Ryder MD [phone] [place], [place] [id number] Social History Tobacco Use Types Packs/Day Years Used Date Smoking Tobacco: Former Cigarettes Smokeless Tobacco: Never [facility] Utilities Answer Date Recorded In the past 12 months has e electric, gas, oil, or water company threatened to shut off services in your home? No 10/04/2024 Humiliation, Afraid, Rape, and Kick questionnair e [...] neighbors? More than three times a week 10/04/2024 How often do you get togethe r with friends or relatives? More than three times a week 10/04/2024 How often do you attend chur or taoist services? Never 10/04/2024 Do you belong to any clubs o r organizations such as samaritan groups, unions, fraternal or athletic groups, or school groups? No 10/04/2024 How often do you attend meet ings of the clubs or organizations you belong to? Never 10/04/2024 Are you , , di vorced, , never , or living with a partner? 10/04/2024 AUDIT-C Answer Date Recorded Q1: How often do you have a drink containing alcohol? Never 09/22/2024 Q2: How many drinks containi ng alcohol do you have on a typical day when you are drinking? Patient does not drink Q3: How often do you have si x or more drinks on one occasion? Never 09/22/2024 Overall Financial Resource Strain (CARDIA) Answe r Date Recorded How hard is it for you to pa y for the very basics like food, housing, medical care, and heating? Not hard at all 10/04/2024 PHQ-2 Answer Date Recorded PHQ-2 Total Score 13 08/13/2024 [facility] of Occupat ional Health - Occupational Stress Questionnaire Answer Date Recorded [...] the money to buy more. Never true 10/05/19 25 Within the past 12 months, t he food you bought just didn't last and you didn't have money to get more. Never true 10/04/2024 PRAPARE - Transportation Answer Date Re corded In the past 12 months, has l ack of transportation kept you from medical appointments or from getting medications? No 01/2025 In the past 12 months, has l ack of transportation kept you from meetings, work, or from getting things needed for daily living? No 10/04/2024 PHQ-9 Answer Date Recorded PHQ-9 Total Score 13 08/13/2024 Housing Stability Vital Sign Answer Don e Recorded In the last 12 months, was t here a time when you were not able to pay the mortgage or rent on time? No 10/04/2024 In the past 12 months, how m any times have you moved where you were living? 1 10/04/2024 At any time in the past 12 m [facility], were you homeless or living in a custodial (including now)? No 10/04/2024 Personal Safety Answer Date Recorded Have you ever been in or are you currently in a harmful physical or emotional relationship or is someone making you feel afraid or unsafe? 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 Gender Identity Not on file Sexual Orientation Not on file documented as of this encounter Plan of Treatment Upcoming Encounters Date Type Department Care Team (Latest Contact Info) Description 04/14/2025 1:00 PM CDT Hospital Encounter [facility] [address] [place] [address] Donna Kong MD [address] [place] [address] [place] [address] 04/14/2025 1:00 PM CDT - 04/14/2025 1:30 PM CDT Surgery [facility] 1 [place] [address] Donna Kong MD 4 [facility] [address] [address] ESOPHAGOGASTRODUODENOSCOPY Scheduled Procedures Name Priority Associated Diagnoses Date/Ti sd ESOPHAGOGASTRODUODENOSCOPY Esophagitis 04/14/2025 1:00 PM CDT documented as of this encounter Visit Diagnoses Not on filedocumented in this encounter Care Teams Logistics Research Engineer Relationship Specialty Start Date End Date Olvin Montgomery MD PCP - General Internal Medicine 06/17/24 Ten Canales MD [address] [facility] [phone] [place] [address] Surgeon Colon and Rectal Surgery 07/21/24 Hubert Robledo MD PhD [address] [place] [address] Radiation Oncologist Radiation Oncology 08/26/24 Bin Ryder MD [address] [facility] [place] [address] Consulting Physician Medical Oncology 08/26/24 documented as of this encounter
--- OUTSIDE RECORDS SUMMARY | 2025-03-05 20:22 | XMS_ITS | Clinical Summary ---
Author Organization [facility] Address [address] [place] [address] Care Team Providers Care Child Welfare Caseworker Name Role Phone Olvin Montgomery MD Primary Care Provider [phone] Allergies Active Allergy Reactions Criticality Noted Date Comments Other-Environmental Allergen (Not Found In Search) Rash 02/16/2025 hair dye Medications acetaminophen (TYLENOL EXTRA STRENGTH) 500 MG Capsule Take 1,000 mg by mouth every 6 hours as needed for Mild or more severe pain. 02/16/2025 Active ascorbic acid (VITAMIN C) 1000 MG Tablet Take 1 Tablet by mouth daily. 02/16/2025 Active finasteride (PROSCAR) 5 MG Tablet Take 5 mg by mouth daily. 02/16/2025 Active folic acid (FOLVITE) 1 MG Tablet Take 1 mg by mouth daily. 02/16/2025 Active levothyroxine (SYNTHROID) 50 MCG Tablet Take 50 mcg by mouth daily. 02/16/2025 Active gabapentin (NEURONTIN) 300 MG Capsule Take 300 mg by mouth 3 times daily. 02/16/2025 Active methocarbamol (ROBAXIN) 750 MG Tablet Take 1,500 mg by mouth 3 times daily. 02/16/2025 Active mirtazapine (REMERON) 15 MG Tablet Take 15 mg by mouth nightly. 02/16/2025 Active Multiple Vitamins-Mineral s (MULTIVITAMIN & MINERAL PO) Take 1 Tablet by mouth daily. 02/16/2025 Active pantoprazole (PROTONIX) 40 MG Tablet Delayed Response Take 40 mg by mouth 2 times daily. 02/16/2025 Active sertraline (ZOLOFT) 100 MG Tablet Take 100 mg by mouth daily. 02/16/2025 Active tamsulosin (FLOMAX) 0.4 MG Capsule Take 0.4 mg by mouth daily. 02/16/2025 Active traZODone (DESYREL) 50 MG Tablet Take 50 mg by mouth nightly. 02/16/2025 Active Encounters Date Type Department Care Team Description 03/05/2025 1:00 PM CDT Home Care Visit [address] [address] Daphne Ken RN SN - PRN VISIT 03/05/2025 Home Care Visit [address] [address] Daphne Ken RN CASE COMMUNICATION 03/04/2025 Nurse Triage [address] [address] Lori Uriarte RN colostomy 03/03/2025 11:30 AM CDT Home Care Visit [address] [address] Ana Chaudhary PTA PT - HOME VISIT 03/03/2025 Travel 03/02/2025 9:00 AM CDT Home Care Visit [address] [address] Ellie Mayer RN SN - HOME VISIT 03/02/2025 8:30 AM CDT Home Care Visit [address] [address] Ana Chaudhary, PULMONARY PHYSICAL THERAPIST PT - HOME VISIT 03/02/2025 Travel 03/01/2025 11:30 AM CDT Home Care Visit [address] [address] Ana Chaudhary, PULMONARY PHYSICAL THERAPIST RESCHEDULED MISSED VISIT 03/01/2025 Travel 02/25/[address] [address] Ashley Brown RN Ostomy 02/24/2025 3:00 PM CDT Home Care Visit [address] [address] Ana Chaudhary, PULMONARY PHYSICAL THERAPIST PT - HOME VISIT 02/24/2025 10:00 AM CDT Home Care Visit [address] [address] Sherri Aguayo, RN SN - HOME VISIT 02/24/2025 Travel 02/23/2025 11:30 AM CDT Home Care Visit [address] [address] Inge Barahona, OT OT - INITIAL EVALUATION 02/22/2025 12:00 PM CDT Home Care Visit [address] [address] Ana Chaudhary PULMONARY PHYSICAL THERAPIST PT - HOME VISIT 02/22/2025 11:00 AM CDT Home Care Visit [address] [address] Mandi Solitario, MERCURY CRACKING TESTER MERCURY CRACKING TESTER - INITIAL EVALUATION 02/22/2025 9:00 AM CDT Home Care Visit [address] [address] Ellie Mayer, RN SN - HOME VISIT 02/22/2025 Travel 02/21/2025 Home Care Visit [address] [address] Inge Barahona, OT TELEPHONE ENCOUNTER 02/18/2025 10:00 AM CDT Home Care Visit [address] [address] Ellie Mayer, RN SN - HOME VISIT 02/17/2025 Nurse Triage [address] [address] Ramila Zarate, RN Symptom Management; Urinary Catheter Problem 02/16/2025 2:30 PM CDT Home Care Visit [address] [address] Joselin Duong, PT PT - INITIAL EVALUATION 02/16/2025 9:00 AM CDT Home Care Visit [address] [address] Ellie Mayer, RN SN - OASIS START OF CARE 02/16/2025 Plan of Care Documentation [address] [address] 02/14/2025 Travel from Last 3 Months Immunizations Immunization Administration Dates Next Due Covid-19 Vaccine, Vector-nr, Rs-ad26, Pf, 0.5 Ml ([employer]/J[employer]OFERTALDIA) 04/26/2021 Social History Tobacco Use Types Packs/Day Years [...] F) 03/05/2025 12:30 PM CDT Respiratory Rate 16 03/02/2025 10:06 AM CDT Oxygen Saturation 100% 03/05/2025 12:30 PM CDT Inhaled Oxygen Concentration - - Weight 68.9 kg (152 lb) 02/16/2025 2:43 PM CDT Height 175.3 cm (5' 9) 02/23/2025 12:25 PM CDT Body Mass Index 22.45 02/16/2025 2:43 PM CDT Plan of Treatment Upcoming Encounters Date Type Department Care Team (Late st Contact Info) Description 03/06/2025 12:00 PM CDT Home Care Visit [address] [address] Ana Chaudhary, PULMONARY PHYSICAL THERAPIST [place] 03/07/2025 11:00 AM CDT Home Care Visit [address] [address] Joselin Duong PT [place] 03/08/2025 2:00 AM CDT Home Care Visit [address] [address] Ellie Mayer RN [place] 03/15/2025 1:00 AM CDT Home Care Visit [address] [address] Ellie Mayer RN [place] 03/22/2025 1:00 AM CDT Home Care Visit [address] [address] Ellie Mayer RN [place] 03/29/2025 1:00 AM CDT Home Care Visit [address] [address] Ellie Mayer RN [place] 04/05/2025 1:00 AM CDT Home Care Visit [address] [address] Ellie Mayer RN [place] 04/12/2025 1:00 AM CDT Appointment [address] [address] Ellie Mayer RN [place] Health Maintenance Due Date Last Done Comments Hepatitis C Virus (HCV) Screening 1955 TdaP Immunization 1954 Cologuard 1999 Colonoscopy 1999 Colorectal Cancer Screening 1999 Immunochemical Fecal Occult Blood 1999 Influenza Immunization (#1) 2025 12/08/2023, 04/22/2023, 04/11/2022, Additional history exists SARS-COV-2 Immunization (2024- season) 2025 04/22/2023, 08/21/2022, 04/26/2021, Additional history exists Respiratory Syncytial Virus (RSV) Immunization (Adult) (1 - 1-dose 75+ series) 2029 Zoster Immunization Completed 08/05/2022, 04/11/2022, 03/31/2022 Pneumococcal Immunization (50+ years) Completed 02/05/2023, 05/12/2022 Hepatitis B Immunization Aged Out No longer eligible based on patient's age to complete this topic Human Papillomavirus (HPV) Immunization Aged Out No longer eligible based on patient's age to complete this topic Meningococcal Immunization (ACWY) Aged Out No longer eligible based on patient's age to complete this topic Rotavirus Immunization Aged Out No lo nger eligible based on patient's age to complete this topic Insurance MEDICARE C HU[employer] Advance Directives * Full Code (Latest Code Status on File) Date Activated Date Inactivated Comments 02/22/2025 5:43 PM Care Teams Child Welfare Caseworker Relationship Specialty Start Date End Date Olvin Montgomery MD [address] [place] [address] PCP - General Internal Medicine 02/08/25
--- OUTSIDE RECORDS SUMMARY | 2025-03-05 20:22 | XMS_ITS ---
Author Organization [address] Address [address] [place] [id number] Care Team Providers Care Heel Former Name Role Phone Olvin Montgomery MD Primary Care Provider + [phone] Ten Canales MD Unavailable [phone] Hubert Robledo MD PhD Unavailable + [phone] Bin Ryder MD Unavailable [phone] Active Problems Problem Noted Date Diagnosed Date Esophagitis 12/29/2024 Duodenal erosion 12/29/2024 Coffee ground emesis 12/28/2024 JAIR (acute kidney injury) 12/27/2024 Anal carcinoma 10/03/2024 Pain 08/29/2024 Delirium 08/16/2024 Assessment & Plan (08/17/2024 9:21 AM GEAR SHAVER SET UP OPERATOR): 08/16 expressed having audible and visual hallucination, thought people were talking about killing animals in his room, a head CT was performed which showed no intra cranial process- ordered Trazodone for tonight 08/17 mental status improved Discharge planning issues 08/15/2024 Assessment & Plan (08/18/2024 9:47 AM GEAR SHAVER SET UP OPERATOR): 08/15 CRS to see patient 08/16 Urology consulted for urinary retention 08/17 Patient is medically stable for discharge, SW/CM updated. Discharge pending facility acceptance 08/18: Discharged [x] Treatment Plan note completed UTI (urinary tract infection) 08/15/2024 Assessment & Plan (08/15/2024 1:21 PM GEAR SHAVER SET UP OPERATOR): Ceftriaxone 08/13-08/15, did not reflux to culture Colostomy present on admission 08/15/2024 Assessment & Plan (08/17/2024 12:57 PM GEAR SHAVER SET UP OPERATOR): OR 07/25 CRS ([facility]) I and D bilateral perirectal abscesses & Laparoscopic assisted colostomy. 08/15 + gas in bag 08/16 + ostomy output Urinary incontinence 08/15/2024 Assessment & Plan (08/17/2024 9:10 AM GEAR SHAVER SET UP OPERATOR): 08/15 patient states this has had this since April 2024, will obtain PVR bladder scans for 24hrs, if > [address] Grayson, 350 mL reported, Grayson placed 08/[address] findings concerning for invasion of the anal mass into the Prostate consulted Urology in the setting of UOP 5L/24h,Grayson remains in place 08/[address], will discharge with Grayson and follow up with Urology outpatient Fall, initial encounter 08/13/2024 Multiple Left sided rib fractures, 8th-12th 07/30 Assessment & Plan (08/18/2024 9:47 AM GEAR SHAVER SET UP OPERATOR): # Left rib fx 8-12 CXR, Chest CT demonstrate acute fractures of ribs 8th-12th on the Left side. Patient's is pulling 2L on IS. - Admit to Floor based on [facility] Rib score - Aggressive pulmonary hygiene: [...] 07/27/2024 Assessment & Plan (08/17/2024 12:54 PM GEAR SHAVER SET UP OPERATOR): Body mass index is 20.04 kg/m . 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 Canales ---Perianal wound care: Cleanse [...] 07/21/2024 Assessment & Plan (08/18/2024 9:46 AM GEAR SHAVER SET UP OPERATOR): #Anal SCC with perirectal abscesses s/p recent I&Ds (JEWEL, Ally) and diverting colostomy. - Patient with [...] outpatient for drain removal Anal cancer 07/19/2024 [id number] 07/19/2024 Bipolar 1 disorder 04/12/2024 Essential (primary) hypertension 04/12/2024 Open wound of left buttock 04/12/2024 Syncope 04/12/2024 Tobacco dependence syndrome 04/12/2024 Hyperlipidemia 03/25/2024 Umbilical hernia 02/20/2024 Overactive bladder 02/15/2024 Hypothyroidism 01/18/2024 Chlamydial infection 01/30/2023 Lower urinary tract symptoms 01/30/2023 Sexually transmitted infection 01/30/2023 Benign prostatic hyperplasia with urinary obstru ction 12/11/2021 Current Treatment and Therapy Plans Fluorouracil / MitoMYCIN with Concurrent Radiation 35 Day Cycle - Anal* Plan Start Date:08/24/2024 Plan Provider:Bin Ryder MD Linked Problems Anal cancer (HCC) Treatment Medications fluorouracil (ADRUCIL) infus ion - for home infusion (ADRUCIL)mitoMYcin (MUTAMYCIN) 0.5 mg/mL IV Maintenance Therapy Plan* Plan Start Date:12/06/2024 Plan Provider:Bin Ryder MD Linked Problems Anal squamous cell carcinoma (HCC) Treatment Medications No medications scheduled. Past Treatment and Therapy Plans No past plan information found. Radiation Treatments (No Episode) * Course [id number]/05/2024 - 10/14/2024 Treatment Period Energy Fraction Dose Fractions Total Dose Plans Planned PELVIS_ANUS 09/05/2024 - 10/14/2024 180 30 / 5,400 Reference Points Delivered [id number] 09/05/2024 - 10/14/2024 5,400 Lifetime Dose Tracking * Chemical Lifetime Dose Automatic Entry Manual Entr y mitomycin 20.225 mg/m2 (36 mg) 20.225 mg/m2 (36 mg) 0 mg/m2 (0 mg) Fluoro Time 0.137 minutes 0.137 minutes 0 minutes Air kerma at the reference point (Ka,r) 0.89 mGy 0.89 mGy 0 mGy DLP 1,272 mGycm 1,272 mGycm 0 mGycm
[2025-03-05] MEDS: cefTRIAXone 1 GM in SODIUM CHLORIDE 0.9% IV 50 ML 100 ML IVPB (20:54)
--- NOTE | 2025-03-05 21:00 | ED.GENADULT ---
HPI - General Adult General Chief complaint: Recheck/Abnormal Lab/Rx Stated complaint: sent by home health for colostomy problems Time Seen by Provider: 03/05/25 20:05 History of Present Illness HPI narrative: Patient is a 70-year-old male with past medical history of colorectal cancer presents to the emergency department this evening due to concern for an obstruction. Patient was sent in by his home healthcare nurse to rule out bowel obstruction as patient has had decreased output from his colostomy bag for the past 2 days. Patient states that he usually empties his colostomy bag at least twice a day and has noticed that throughout the past 48 hours his output has significantly decreased. He is otherwise denying any symptoms including any nausea or vomiting, any abdominal pain. States that he has been eating and drinking regularly. No additional symptoms or concerns at this time. Patient does have a chronic indwelling Grayson catheter. Related Data Home Medications ?Medication ?Instructions ?Recorded ?Confirmed ?Last Taken ?Type aspirin 325 mg tablet 325 mg PO DAILY 05/16/20 05/16/20 05/22/20 History levothyroxine 50 mcg tablet 50 mcg PO DAILY 05/16/20 05/16/20 05/22/20 History lithium carbonate 150 mg capsule 300 mg PO BID 05/16/20 05/16/20 05/22/20 History risperidone 0.5 mg tablet 0.5 mg PO DAILY 05/16/20 05/16/20 05/22/20 History sertraline 100 mg tablet 150 mg PO DAILY 05/16/20 05/16/20 05/22/20 History Allergies Allergy/AdvReac Type Severity Reaction Status Date / Time No Known Allergies Allergy Verified 03/05/25 18:08 Review of Systems Review of Systems: All systems are reviewed and are negative unless stated otherwise in the HPI. [facility] Past Medical History Medical History Smoker Obesity Schizophrenia Surgical History Surgical History H/O exploratory laparotomy Social History Social History Smoking packs per day: 0.75 Smoking cigarettes per day: 15.0 Years smoked: 30 Smoking pack-years: 22.50 Smoking status: Current every day smoker Tobacco type: cigarettes Alcohol intake: current Drinks per week: 0 Alcohol use details: 1 OR 2 BEERS A MONTH Substance use: current Substance use type: marijuana Other substance usage details: DAILY Last use: TODAY Living arrangements: with family Spiritual care concerns: No Exam Narrative: General: Alert, awake, afebrile, in no acute distress. HEENT: PERRL, no rhinorrhea, no post nasal drip, oropharynx clear. Neck: Trachea midline, no JVD, no lymphadenopathy. Cardiovascular: Regular rate and rhythm, no murmurs, rubs or gallops, no peripheral edema. Respiratory: Clear to auscultation bilaterally, no tachypnea, no wheezing, no rhonchi, no rubs, no respiratory distress. Abdomen: Soft, nontender, nondistended, no rebound, no guarding, no peritoneal signs, colostomy bag in place with minimal stool. Musculoskeletal: No joint swelling or deformity, normal muscle tone. Skin: No rashes or petechia, no signs of infection. Psychiatric: Alert and oriented, normal behavior and judgment for situation. Neurological: Alert and oriented to person, place, and time. Follows all commands. No focal deficits, speech is clear and fluent. Course Vital Signs Vital signs: Vital Signs Temperature 97.6 F 03/05/25 18:09 Pulse Rate 79 03/05/25 18:09 Respiratory Rate 19 03/05/25 18:09 Blood Pressure 119/64 03/05/25 18:09 Pulse Oximetry 100 03/05/25 18:09 Oxygen Delivery Room Air 03/05/25 18:09 Temperature 97.6 F 03/05/25 18:09 Pulse Rate 70 03/05/25 21:53 Respiratory Rate 19 03/05/25 21:53 Blood Pressure 107/69 03/05/25 21:53 Pulse Oximetry 99 03/05/25 21:53 Oxygen Delivery Room Air 03/05/25 20:16 Medical Decision Making MDM Narrative Medical decision making narrative: The patient was evaluated by myself in the emergency department. History is obtained from patient who is an independent historian and physical exam was performed. External medical records were reviewed at this time. IV was established and pertinent tests were ordered. Laboratory results obtained revealing a creatinine of 1.79 otherwise no acute process. No previous laboratory results are available for comparison. Urine analysis reveal UTI nitrate positive. Imaging studies obtained included CT abdomen and pelvis with IV contrast which was independently interpreted by me revealing cystitis, enteritis with possible proximal colitis and moderate colonic stool burden consistent with constipation, which is pending final radiology interpretation. Differential diagnosis considerations include constipation, bowel obstruction, dehydration, electrolyte derangements. Comorbidities impacting this visit include status post bowel resection with colostomy. I have evaluated and discussed social determinants of health with the patient that could potentially impact subsequent diagnosis and treatment plans. On repeat assessment of the patient, reevaluation revealed that the patient is doing well and is in no acute distress. Patient symptoms have remained stable since he arrived to our emergency department. Repeat vital signs were all reviewed and noted to be stable. Differential diagnosis and treatment plan were discussed with the patient at bedside. Patient agrees with discussion and after shared medical decision making agrees with discharge. All questions were answered to the patient's satisfaction. Patient will follow up with PCP/GI in 3-5 days. Script for MiraLax, Colace and cephalexin was sent to patient's pharmacy to take as prescribed. Patient was provided with strict return precautions and instructed to return to the emergency department if any new or worsening symptoms develop. The patient was discharged in stable condition. Vital Signs Vital Signs: Vital Signs Temperature 97.6 F 03/05/25 18:09 Pulse Rate 79 03/05/25 18:09 Respiratory Rate 19 03/05/25 18:09 Blood Pressure 119/64 03/05/25 18:09 Pulse Oximetry 100 03/05/25 18:09 Oxygen Delivery Room Air 03/05/25 18:09 Temperature 97.6 F 03/05/25 18:09 Pulse Rate 70 03/05/25 21:53 Respiratory Rate 19 03/05/25 21:53 Blood Pressure 107/69 03/05/25 21:53 Pulse Oximetry 99 03/05/25 21:53 Oxygen Delivery Room Air 03/05/25 20:16 Lab Data 03/05/25 19:35 03/05/25 19:35 Labs: Lab Results 03/05/25 Range/Units 19:35 WBC 6.0 (4.5-10.0) K/mm3 RBC 3.36 L (4.6-6.20) M/mm3 Hgb 10.1 L (14.0-18.0) g/dL Hct 34.1 L (42.0-52.0) % MCV 101.5 H (80-100) fl MCH 30.1 (26-34) pg MCHC 29.6 L (32-36) g/dl RDW 19.8 H (11.5-14.5) % Plt Count 282 (150-375) k/mm3 MPV 9.6 (7.4-10.4) fl Immature Gran % (Auto) 2.2 H (0-0.5) % Neut % (Auto) 72.6 (45.5-73.1) % Lymph % (Auto) 8.3 L (18.3-44.2) % Dare % (Auto) 12.3 H (2.6-8.5) % Eos % (Auto) 3.6 (0-4.4) % Baso % (Auto) 1.0 (0.2-1.2) % Lymph # (Auto) 0.50 L (0.9-3.2) K/mm3 Dare # (Auto) 0.7 H (0.1-0.6) K/mm3 Eos # (Auto) 0.2 (0-0.3) K/mm3 Baso # (Auto) 0.1 (0.0-0.1) K/mm3 Abs Immat Gran (auto) 0.13 H (0.00-0.031) K/mm3 Absolute Neuts (auto) 4.4 (1.3-6.7) K/mm3 Absolute Nucleated RBC 0.000 (0.0-0.012) K/mm3 Band Neutrophils % Not Reportable Nucleated RBC % 0.0 (0.0-0.2) % Platelet Estimate Adequate (Adequate) Hypochromasia 1+ Schistocytes None seen Sodium 139 (137-145) mmol/L Potassium 4.2 (3.4-5.0) mmol/L Chloride 108 H (98-107) mmol/L Carbon Dioxide 25 (22-30) mmol/L Anion Gap 6 (4-12) mmol/L BUN 27 H (9-20) mg/dL Creatinine 1.79 H (0.7-1.3) mg/dL Estim Creat Clear Calc 34 ml/min Estimated GFR 38 L (59 - ) Glucose 87 (65-110) mg/dL Calcium 9.0 (8.4-10.2) mg/dL Magnesium 2.1 (1.6-2.3) mg/dL Total Bilirubin 0.4 (0.2-1.3) mg/dL AST 26 (17-59) U/L ALT 11 (6-50) U/L Alkaline Phosphatase 67 (38-126) U/L Total Protein 7.7 (6.3-8.2) g/dL Albumin 3.9 (3.5-5.1) g/dL Lipase 181 (23-300) U/L Urine Color Yellow (Yellow) Urine Appearance Cloudy H (Clear) Urine pH 6.0 (5.0-9.0) Ur Specific Barton 1.005 (1.001-1.035) Urine Protein Trace (Negative) mg/dL Urine Glucose (UA) Negative (Negative) mg/dL Urine Ketones Negative (Negative) mg/dL Ur Blood (Man) Trace (Negative) Urine Nitrate Positive H (Negative) Urine Bilirubin Negative (Negative) Urine Urobilinogen 0.2 (<2.0) mg/dL Leukocyte Esterase Rfl 2+ H (Negative) JANEE/UL Urine RBC 0-2 (0-2) /hpf Urine WBC 21-50 H (0-3) /hpf Ur Squamous Epith Cells None seen (Few) /hpf Urine Bacteria 4+ H /hpf Urine Casts 0-2 Discharge Plan Discharge Clinical Impression: Acute UTI, Constipation Patient Disposition: Home Condition: Improved Instructions: Antibiotic Form, Constipation (DC), Urinary Tract Infection in Men (ED) Additional Instructions: Please follow-up with the family doctor within the next 3-5 days. Return to the emergency department if any new or worsening symptoms develop. Use the prescribed medications as instructed for urinary tract infection and constipation. Patient Language: Yemeni Prescriptions: New cephalexin 500 mg capsule 500 mg PO Q6H 7 Days Qty: 28 0RF polyethylene glycol 3350 [Miralax] 17 gram/dose powder 17 g PO BID Qty: 119 0RF docusate sodium [Colace] 100 mg capsule 100 mg PO BID Qty: 14 0RF No Action aspirin 325 mg Tablet 325 mg PO DAILY sertraline 100 mg tablet 150 mg PO DAILY lithium carbonate 150 mg capsule 300 mg PO BID levothyroxine 50 mcg tablet 50 mcg PO DAILY risperidone 0.5 mg tablet 0.5 mg PO DAILY Follow-up/Referrals: Ulises,MD Olvin [Primary Care Provider] - 3 Days Time of Disposition: 22:43
[2025-03-05 21:53] VITALS: BP 107/69; PULSE 70; RESP 19; O2SAT 99
[2025-03-05 23:01] VITALS: BP 114/67; PULSE 75; RESP 16; O2SAT 98
== END 2025-03-05 23:02 | disposition home or self-care (01) ==
PROVIDERS: Emergency Provider Emergency Medicine; PCP Internal Medicine
DX: N39.0 Urinary tract infection, site not specified (principal); K59.00 Constipation, unspecified; F17.210 Nicotine dependence, cigarettes, uncomplicated; F20.9 Schizophrenia, unspecified
CPT/HCPCS: 36415; 74177; 80053; 81001; 83690; 83735; 85025; 87086; 96365; 99284; J0696; Q9967